=== PATIENT | male | born 1955 | race Caucasian/White ===

== ENCOUNTER → 2017-04-15 | Outpatient (CLI) | payer OTHER ==
[~2017-04-15] MED LIST: CELE100C PO; DOXY100C PO; IBUP-1022 PO; LEVA1TAB2 PO; MUCI600T37 PO; MULTCAP PO; NICO21DI5 TD; TYLE325T5 PO
--- NOTE | 2017-04-18 22:38 | SLEEPHOME ---
DATE OF PROCEDURE: 04/15/2017 ORDERED BY: Dr. Garcia in [facility] home sleep testing was performed due to concern for the obstructive sleep apnea syndrome. For testing, a NOX-T3 respiratory monitoring device was used. Continuous record was made of pulse, oxygen saturation, air flow, chest and abdominal strain and body position. 9 hours and 59 minutes of data were reviewed. Of these, 4 hours and 42 minutes were marked time in bed. During the interval marked time in bed, there were 352 respiratory events identified of 10 seconds in duration or greater for a respiratory event index of 74.7. The events were primarily obstructive. Baseline heart rate 81 beats per minute. Pulse rate ranged 66 to 115. Baseline saturation 90%. Lowest oxygen saturation 80%. Testing was performed in both the supine and nonsupine positions. IMPRESSION: Abnormal home sleep testing with repetitive respiratory events and oxygen desaturation to 80% with a respiratory event index of 74.7 is consistent with severe obstructive sleep apnea syndrome. RECOMMENDATION: Given the significant oxygen desaturations and the frequency of respiratory events, referral for a formal sleep evaluation and in laboratory pressure titration are recommended.
== END ==
LOC: M SLEEP HO 07:47
PROVIDERS: ATTEND Internal Medicine Cardiovascular Disease
DX: G47.30 Sleep apnea, unspecified (principal)

== ENCOUNTER → 2017-05-31 | Outpatient (CLI) | payer BC ==
--- NOTE | 2017-05-31 10:08 | REP ---
REASON: Pain, no trauma, whatsoever. There is a comparison dated 03/04/2014. Once again, there are degenerative changes seen throughout the hand, particularly the proximal interphalangeal joint of the 5th digit with joint space narrowing and slight marginal osteophytosis slightly increased from the prior exam. There are no other significant changed from the prior exam. There is no evidence of an acute fracture. IMPRESSION: Chronic changes as described above. Signed by Brown Martinez DO 05/31/2017 10:22 A
== END ==
LOC: M WUC 08:52
PROVIDERS: ATTEND Nurse Practitioner Family
DX: M25.542 Pain in joints of left hand (principal)

== ENCOUNTER → 2017-08-26 | Outpatient (CLI) | payer BC | LOC: M SLEEP 19:02 | DX: G47.33 Obstructive sleep apnea (adult) (pediatric) (principal); G47.61 Periodic limb movement disorder | CPT/HCPCS: 95811 ==

== ENCOUNTER → 2017-08-28 | Outpatient (REF) | payer BC | LOC: M LAB REF 17:22 | DX: D17.22 Benign lipomatous neoplasm of skin and subcutaneous tissue of left arm (principal) | CPT/HCPCS: 88304 ==

== ENCOUNTER → 2017-09-04 | Outpatient (REF) | payer BC | LOC: M LAB REF 12:39 | DX: D17.21 Benign lipomatous neoplasm of skin and subcutaneous tissue of right arm (principal) | CPT/HCPCS: 88304 ==

== ENCOUNTER → 2018-01-08 | Outpatient (CLI) | payer BC ==
[2018-01-08 09:03] LABS: HEMATOCRIT 40.8 % (42.0-52.0); HEMOGLOBIN 13.8 g/dl (13.5-17.5); MEAN CORPUSCULAR HEMOGLOBIN 32.9 pg (27.0-33.0); MEAN CORPUSCULAR HGB CONC 33.8 g/dl (32.0-36.5); MEAN CORPUSCULAR VOLUME 97.1 fl (80.0-96.0); PLATELET COUNT, AUTOMATED 180 10^3/uL (150-450); RED CELL DISTRIBUTION WIDTH 12.1 % (11.5-14.5); WHITE BLOOD COUNT 5.5 10^3/uL (4.0-10.0)
[2018-01-08 09:25] LABS: ALBUMIN/GLOBULIN RATIO 1.25 (1.00-1.93); ALKALINE PHOSPHATASE 67 U/L (45-117); ALT/SGPT 103 U/L (12-78); ANION GAP 6 MEQ/L (8-16); AST/SGOT 63 U/L (7-37); BILIRUBIN,TOTAL 0.9 MG/DL (0.2-1.0); BLOOD UREA NITROGEN 19 MG/DL (7-18); CALCIUM LEVEL 8.7 MG/DL (8.8-10.2); CARBON DIOXIDE LEVEL 27 MEQ/L (21-32); CHLORIDE LEVEL 106 MEQ/L (98-107); CHOLESTEROL LEVEL 294 MG/DL (<200); CHOLESTEROL RISK RATIO 3.195 (<5); CPK CREATINE PHOSPHOKINASE 221 U/L (39-308); CREATININE FOR GFR 0.94 MG/DL (0.70-1.30); GLOMERULAR FILTRATION RATE > 60.0 (>49); GLUCOSE, FASTING 103 MG/DL (70-100); HDL CHOLESTEROL 92 MG/DL (>40); NON-HDL-C 202 MG/DL; POTASSIUM SERUM 4.7 MEQ/L (3.5-5.1); SODIUM LEVEL 139 MEQ/L (136-145); TOTAL PROTEIN 7.2 GM/DL (6.4-8.2); TRIGLYCERIDES LEVEL 95 MG/DL (<150)
== END ==
LOC: M WUC 08:11
DX: E78.00 Pure hypercholesterolemia, unspecified (principal); I10 Essential (primary) hypertension
CPT/HCPCS: 82550

== ENCOUNTER → 2018-03-03 | Outpatient (CLI) | payer BC | LOC: M SMT PRO 11:17 | DX: C61 Malignant neoplasm of prostate (principal) | CPT/HCPCS: G0416 ==

== ENCOUNTER → 2018-06-09 | Outpatient (CLI) | payer BC | LOC: M RAD 14:56 | DX: M54.5 Low back pain (principal); R93.7 Abnormal findings on diagnostic imaging of other parts of musculoskeletal system | CPT/HCPCS: 72148 ==

== ENCOUNTER 2018-12-22 08:06 | Inpatient (IN) | payer BC ==
[~2018-12-22] VITALS: Ht 177.8 cm; Wt 87.5 kg
[~2018-12-22 08:06] MED LIST changes: -NICO21DI5 TD; +NICO21DI6 TD
[2018-12-22] MEDS ORDERED: PANTOPRAZOLE 40MG INJ (PROTONIX) (C9113) IV ONE (08:30)
[2018-12-22] MEDS ORDERED: OCTREOTIDE ACETATE 100 MCG/ML VIAL (J2354) IV ONE (08:30)
[2018-12-22] MEDS ORDERED: NS 1,000 ML IV ONE (08:30)
[2018-12-22 08:52] LABS: BASO # 0.1 10^3/uL (0.0-0.2); BASO % 0.5 % (0.0-1.0); EOS # 0.1 10^3/uL (0.0-0.50); EOS % 0.6 % (0.0-3.0); HEMATOCRIT 29.5 % (42.0-52.0); HEMOGLOBIN 9.4 g/dl (13.5-17.5); LYMPH # 0.9 10^3/uL (1.5-4.5); LYMPH % 9.6 % (24.0-44.0); MEAN CORPUSCULAR HGB CONC 31.9 g/dl (32.0-36.5); MEAN CORPUSCULAR VOLUME 100.3 fl (80.0-96.0); MONO # 1.1 10^3/uL (0.0-0.8); NEUTROPHILS # 7.3 10^3/uL (1.8-7.7); NEUTROPHILS % 76.2 % (36.0-66.0); PLATELET COUNT, AUTOMATED 286 10^3/uL (150-450); RED BLOOD COUNT 2.94 10^6/uL (4.30-6.10); WHITE BLOOD COUNT 9.6 10^3/uL (4.0-10.0)
[2018-12-22 09:05] LABS: INR 1.01; PROTHROMBIN TIME 13.4 SECONDS (12.1-14.4)
[2018-12-22 09:06] LABS: PARTIAL THROMBOPLASTIN TIME 25.4 SECONDS (25.4-37.6)
--- NOTE | 2018-12-22 09:31 | REP ---
CHEST, SINGLE VIEW: COMPARISON: 01/08/2018. There is no evidence of acute infiltrate. No pleural effusion is seen. The heart is normal in size. The mediastinal silhouette is unremarkable. The visualized osseous structures are intact. IMPRESSION: No acute pulmonary disease. Electronically Signed by Ben Henson MD 12/23/2018 11:36 A
[2018-12-22 09:37] LABS: ALBUMIN 2.9 GM/DL (3.2-5.2); ALT/SGPT 38 U/L (12-78); BILIRUBIN,DIRECT < 0.1 MG/DL (0.0-0.2); BILIRUBIN,TOTAL 0.5 MG/DL (0.2-1.0); TOTAL PROTEIN 5.9 GM/DL (6.4-8.2)
[2018-12-22 09:39] LABS: BLOOD UREA NITROGEN 57 MG/DL (7-18); GLOMERULAR FILTRATION RATE 59.2 (>49); GLUCOSE, FASTING 114 MG/DL (70-100)
[2018-12-22 09:40] LABS: CARBON DIOXIDE LEVEL 24 MEQ/L (21-32); CHLORIDE LEVEL 106 MEQ/L (98-107); POTASSIUM SERUM 5.7 MEQ/L (3.5-5.1); SODIUM LEVEL 138 MEQ/L (136-145)
[2018-12-22 09:41] LABS: CALCIUM LEVEL 8.5 MG/DL (8.8-10.2); CK-MB VALUE MASS 2.9 NG/ML (<3.6); CPK CREATINE PHOSPHOKINASE 87 U/L (39-308); FREE T4 0.98 NG/DL (0.76-1.46); MAGNESIUM LEVEL 1.7 MG/DL (1.8-2.4); MB/CK RELATIVE INDEX 3.33 (< OR =4); TROPONIN I < 0.02 NG/ML (< 0.10)
[2018-12-22 09:46] LABS: LIPASE 279 U/L (73-393)
[2018-12-22] MEDS ORDERED: ISOVUE-370 76% 100ML VIAL (Q9967) As Ordered ONE (10:06)
[2018-12-22] MEDS: PANTOPRAZOLE SODIUM 40 MG in D5W 50 ML IV SCH ×3 (10:15→21:50)
[2018-12-22] MEDS ORDERED: IRBE150T12 PO (11:14)
[2018-12-22] MEDS ORDERED: DOXY100C PO (11:14)
[2018-12-22] MEDS ORDERED: TIZA2TAB4 PO ×2 (11:14)
[2018-12-22] MEDS ORDERED: FLUO20CA19 PO (11:15)
[2018-12-22] MEDS ORDERED: CRES10TA PO (11:15)
[2018-12-22] MEDS ORDERED: GABA-843 PO ×2 (11:15)
[2018-12-22] MEDS ORDERED: FLOM0.4C39 PO (11:15)
[2018-12-22] MEDS ORDERED: CLIN1.2G TOP (11:15)
[2018-12-22] MEDS ORDERED: ASPI81TA85 PO (11:17)
[2018-12-22] MEDS ORDERED: IBUP200T45 PO (11:17)
[2018-12-22] MEDS: OCTREOTIDE ACETATE 1,200 MCG in NS 238.8 ML IV SCH (11:31)
--- NOTE | 2018-12-22 11:35 | REP ---
CT ABDOMEN AND PELVIS WITH IV CONTRAST: TECHNIQUE: Axial contrast enhanced images from the lung bases to the pubic symphysis using 100 mL Isovue 370 intravenous contrast material with multiplanar reformations. Visualized lung bases demonstrate no evidence of acute infiltrate. The liver demonstrates a few scattered cysts. The spleen is unremarkable. There is again a lobulated cyst along the inferior margin of the left adrenal gland, which actually has decreased in size slightly since the prior study of 08/24/2014. The pancreas demonstrates no mass. There is a cyst of the left kidney posteriorly. There is no hydronephrosis bilaterally. There is atherosclerotic calcification of the abdominal aorta without aneurysm. There is no adenopathy. There is no free air or free fluid. There is no bowel wall thickening or inflammation. There is sigmoid diverticulosis without evidence of acute diverticulitis. There is no evidence of appendicitis. There is no pelvic mass. Prostate is enlarged. Urinary bladder is grossly unremarkable. IMPRESSION: No acute disease in the abdomen or pelvis. No free air or free fluid. Scattered cysts in the liver, along the inferior aspect of the adrenal gland and in the left kidney. There is sigmoid diverticulosis without acute diverticulitis. No evidence of acute appendicitis. Enlarged prostate. Electronically Signed by Ben Henson MD 12/23/2018 04:34 P
[2018-12-22] MEDS ORDERED: ONDANSETRON 4MG/2ML VIAL (J2405) IV SCH (11:45)
[2018-12-22] MEDS ORDERED: LORazepam 2 MG/ML VIAL (J2060) IV PRN (12:30)
[2018-12-22] MEDS ORDERED: ONDANSETRON 4MG/2ML VIAL (J2405) IV PRN (12:30)
[2018-12-22 14:00] VITALS: BP 133/88
[2018-12-22 14:11] VITALS: BP 133/88
[2018-12-22] MEDS: NS 1,000 ML IV SCH ×2 (14:37→21:50)
[2018-12-22 15:00] LABS: HEMATOCRIT 30.4 % (42.0-52.0); HEMOGLOBIN 10.1 g/dl (13.5-17.5)
[2018-12-22 16:00] VITALS: BP 132/79
--- NOTE | 2018-12-22 16:37 | HPEPDOC ---
General Date of Admission Dec 22, 2018 at 11:41 Chief Complaint The patient is a 63-year-old male admitted with a reason for visit of Upper Gi Bleeding. History of Present Illness 63-year-old male with past medical history of brain aneurysm status post coiling and stenting x 2 in 2017 @ [facility], Prostate Cancer s/p Gamma Knife therapy in 2018, hypertension, dyslipidemia, anxiety/depression, chronic neck/back pain, osteoarthritis, and neuropathy presented to the ER with a chief complaint of lightheadedness and dizziness. The patient states that he got to work this morning and felt lightheaded/dizzy and diaphoretic. He reports that he feels like he has been appearing pale. He denied any complaints of fevers, c hills, cough, chest pain, shortness of breath, palpitations, or any vomiting/diarrhea. However, the patient does note that he has been having some nonspecific supraumbilical/epigastric pain and abdominal distention with no alleviating or aggravating factors over the last several days. Also of note, the patient states that he has been having dark colored stools since last summer after he received radiation for prostate cancer. Otherwise, he denies any changes in his bowel movements. He denies any weight loss. The patient does endorse drinking 3 L of whiskey per week for the last 4 years. He denies any history of known liver disease. When the patient arrived in the ER, he had approximately 500 mL of hematemesis. Lab work revealed a drop of 4 g of his hemoglobin from 1 month ago. The patient denied any other episodes of hematemesis or overt blood loss. GI was consulted in the ER for upper GI bleeding. The hospitalist team has been contacted for admission of acute blood loss anemia. Home Medications Scheduled Aspirin (Aspir 81) 81 Mg Tablet.dr, 81 MG PO DAILY, (Reported) Clindamycin Phos/Benzoyl Perox (Clind pH-Benzoyl Perox 1.2-5%) 45 Gm Gel..gram., 1 DOSE TOP DAILY, (Reported) Doxycycline Hyclate (Doxycycline Hyclate) 100 Mg Capsule, 100 MG PO BID, (Reported) Fluoxetine Hcl (Fluoxetine HCl) 20 Mg Capsule, 20 MG PO DAILY, (Reported) Gabapentin (Gabapentin) 300 Mg Capsule, 300 MG PO BID, (Reported) AM,LATE AFTERNOON Gabapentin (Gabapentin) 300 Mg Capsule, 600 MG PO QHS, (Reported) Irbesartan (Irbesartan) 150 Mg Tablet, 150 MG PO BID, (Reported) Rosuvastatin Calcium (Crestor) 10 Mg Tablet, 10 MG PO QHS, (Reported) Tamsulosin HCl (Flomax) 0.4 Mg Capsule, 0.4 MG PO DAILY, (Reported) Tizanidine HCl (Tizanidine HCl) 2 Mg Tablet, 1 MG PO BID, (Reported) AM,LATE AFTERNOON Tizanidine HCl (Tizanidine HCl) 2 Mg Tablet, 2 MG PO QHS, (Reported) Scheduled PRN Ibuprofen (Ibu-200) 200 Mg Tablet, 400 MG PO Q8H PRN for PAIN, (Reported) Allergies Coded Allergies: No Known Allergies (Unverified , 08/24/14) Past Medical History Medical History As noted in HPI. Social History * Smoker: former Smoker (smoked 2 packs per day for 40+ years, quit in 2014) Alcohol: heavy (states that he drinks 3 L of whiskey per week for the past 4 years) Drugs: emiliana Works for the [employer] at the [employer]. He is functionally independent at baseline. A-FIB/CHADSVASC A-FIB History Current/History of A-Fib/PAF?: No Review of Systems Other systems 10 point review of systems negative unless otherwise specified in HPI. Physical Examination General Exam: Positive: Alert, Cooperative, No Acute Distress ENT Exam: Positive: Atraumatic, Mucous membr. moist/pink Neck Exam: Negative: JVD Chest Exam: Positive: Clear to auscultation, Normal air movement Heart Exam: Positive: Rate Normal, Normal S1, Normal S2 Abdomen Exam: Positive: Soft; Negative: Tenderness Extremity Exam: Negative: Tenderness, Swelling Psych Exam: Positive: Oriented x 3 Vital Signs Vital Signs Date Time Temp Pulse Resp B/P (MAP) Pulse Ox O2 Delivery O2 Flow Rate FiO2 12/22/18 16:00 98.3 67 18 132/79 (96) 95 12/22/18 08:09 Room Air Laboratory Data Labs 24H Laboratory Tests 2 12/22/18 08:28: Immature Granulocyte % (Auto) 2.1, White Blood Count 9.6, Red Blood Count 2.94L, Hemoglobin 9.4L, Hematocrit 29.5L, Mean Corpuscular Volume 100.3H, Mean Corpu scular Hemoglobin 32.0, Mean Corpuscular Hemoglobin Concent 31.9L, Red Cell Distribution Width 12.4, Platelet Count 286, Neutrophils (%) (Auto) 76.2H, Lymphocytes (%) (Auto) 9.6L, Monocytes (%) (Auto) 11.0H, Eosinophils (%) (Auto) 0.6, Basophils (%) (Auto) 0.5, Neutrophils # (Auto) 7.3, Lymphocytes # (Auto) 0.9L, Monocytes # (Auto) 1.1H, Eosinophils # (Auto) 0.1, Basophils # (Auto) 0.1, Nucleated Red Blood Cells % (auto) 0.5H, Prothrombin Time 13.4, Prothromb Time International Ratio 1.01, Activated Partial Thromboplast Time 25.4, Anion Gap 8, Glomerular Filtration Rate 59.2, Blood Urea Nitrogen 57H, Creatinine 1.30, Sodium Level 138, Potassium Level 5.7H, Chloride Level 106, Carbon Dioxide Level 24, Calcium Level 8.5L, Total Creatine Kinase 87, Magnesium Level 1.7L, Aspartate Amino Transf (AST/SGOT) 32, Alanine Aminotransferase (ALT/SGPT) 38, Alkaline Phosphatase 55, Total Bilirubin 0.5, Direct Bilirubin < 0.1, Creatine Kinase MB 2.9, Creatine Kinase MB Relative Index 3.33, Troponin I < 0.02, Total Protein 5.9L, Albumin 2.9L, Albumin/Globulin Ratio 0.97L, Lipase 279, Thyroid Stimulating Hormone (TSH) 1.110, Free Thyroxine 0.98 CBC/BMP Laboratory Tests 12/22/18 08:28 Red Blood Count 2.94 L, Mean Corpuscular Volume 100.3 H, Mean Corpuscular Hemoglobin 32.0, Mean Corpuscular Hemoglobin Concent 31.9 L, Red Cell Distribution Width 12.4, Neutrophils (%) (Auto) 76.2 H, Lymphocytes (%) (Auto) 9.6 L, Monocytes (%) (Auto) 11.0 H, Eosinophils (%) (Auto) 0.6, Basophils (%) (Auto) 0.5, Neutrophils # (Auto) 7.3, Lymphocytes # (Auto) 0.9 L, Monocytes # (Auto) 1.1 H, Eosinophils # (Auto) 0.1, Basophils # (Auto) 0.1, Calcium Level 8.5 L, Total Creatine Kinase 87 12/22/18 14:54 Plan / VTE VTE Prophylaxis Ordered?: Yes Plan Plan Acute Blood Loss Anemia 2/2 UGIB Possible etiology includes potential underlying esophageal varices from alcohol abuse, gastric/peptic ulcer disease from chronic NSAID use for osteoarthritis (Celebrex, Ibuprofen). The patient was initially hypotensive in the ER but has been provided IV fluid hydration with an appropriate response to his blood pressure. We will transfuse the patient 1 unit of packed blood cell given the acute drop of 4 g We will serially monitor H&H's Protonix and octreotide drip ordered We will keep the patient nothing by mouth GI on consult We will monitor the patient closely under PCU status Hx of Alcohol Abuse Counseled at length about cessation CIWA Protocol ordered Ativan prn Hypertension, stable We will resume meds once the patient is hemodynamically stable, and able to take diet History of dyslipidemia Meds on hold Anxiety/depression Meds on hold History of chronic pain, osteoarthritis By mouth meds on hold Brain aneurysm status post coiling and stenting x 2 in 2017 @ [facility] F/U as outpatient Prostate Cancer s/p Gamma Knife therapy in 2018 F/U as outpatient DVT Prophylaxis KATHLEENs/DARYL Noble MD Dec 22, 2018 16:37
[2018-12-22 20:00] VITALS: BP 132/83
[2018-12-22 21:20] LABS: HEMATOCRIT 29.6 % (42.0-52.0); HEMOGLOBIN 9.7 g/dl (13.5-17.5)
[2018-12-23] VITALS (7 sets, daily range): BP systolic 110–147; BP diastolic 48–86
[2018-12-23 02:50] LABS: HEMATOCRIT 26.9 % (42.0-52.0); HEMOGLOBIN 8.8 g/dl (13.5-17.5); MEAN CORPUSCULAR HEMOGLOBIN 31.9 pg (27.0-33.0); MEAN CORPUSCULAR HGB CONC 32.7 g/dl (32.0-36.5); MEAN CORPUSCULAR VOLUME 97.5 fl (80.0-96.0); PLATELET COUNT, AUTOMATED 226 10^3/uL (150-450); RED BLOOD COUNT 2.76 10^6/uL (4.30-6.10); WHITE BLOOD COUNT 4.8 10^3/uL (4.0-10.0)
[2018-12-23 03:15] LABS: BLOOD UREA NITROGEN 41 MG/DL (7-18); CALCIUM LEVEL 7.6 MG/DL (8.8-10.2); CARBON DIOXIDE LEVEL 27 MEQ/L (21-32); CHLORIDE LEVEL 111 MEQ/L (98-107); CREATININE FOR GFR 1.19 MG/DL (0.70-1.30); GLOMERULAR FILTRATION RATE > 60.0 (>49); GLUCOSE, FASTING 139 MG/DL (70-100); MAGNESIUM LEVEL 1.7 MG/DL (1.8-2.4); POTASSIUM SERUM 4.5 MEQ/L (3.5-5.1); SODIUM LEVEL 142 MEQ/L (136-145)
[2018-12-23] MEDS: PANTOPRAZOLE SODIUM 40 MG in D5W 50 ML IV SCH ×3 (03:18→12:34)
--- NOTE | 2018-12-23 05:44 | ECGEPIP ---
Stationary ECG Study [facility] - ED Test Date: 2018-12-22 Pat Name: MICHAEL IRVING Department: Room: - Gender: M Rn Relief Charge: : 1955 Requested By: RUTH Vizcarra Order Number: [id number] Reading MD: Mark Hancock Measurements Intervals [place] Rate: 106 P: 46 NH: 120 QRS: 70 QRSD: 85 T: 55 QT: 304 QTc: 404 Interpretive Statements SINUS TACHYCARDIA WITH OCCASIONAL VENTRICULAR PREMATURE COMPLEXES POSSIBLE LEFT ATRIAL ENLARGEMENT INCOMPLETE RIGHT BUNDLE BRANCH BLOCK SIMILAR TO 08/24/14 Electronically Signed On 12-23-2018 5:44:35 EDT by Mark Hancock
[2018-12-23] MEDS: NS 1,000 ML IV SCH (07:46)
[2018-12-23] MEDS: MAG SULF 1GM/100ML (MAG RUN) 1 GM in APPROPRIATE DILUENT 1 EA IV SCH ×2 (07:57→09:03)
[2018-12-23] MEDS: OCTREOTIDE ACETATE 1,200 MCG in NS 238.8 ML IV SCH (09:03)
[2018-12-23 09:04] LABS: HEMATOCRIT 28.7 % (42.0-52.0); HEMOGLOBIN 9.6 g/dl (13.5-17.5)
--- NOTE | 2018-12-23 13:32 | IPNPDOC ---
Subjective Date Seen The patient was seen on 12/23/18. Subjective Chief Complaint/HPI Patient is having dark/black colored stools overnight. However, states that this has been his baseline since last summer. Denies any more episodes of hematemesis Objective Physical Examination General Exam: Positive: Alert, Cooperative, No Acute Distress ENT Exam: Positive: Atraumatic, Mucous membr. moist/pink Neck Exam: Negative: JVD Chest Exam: Positive: Clear to auscultation, Normal air movement Heart Exam: Positive: Rate Normal, Normal S1, Normal S2 Abdomen Exam: Positive: Soft; Negative: Tenderness Extremity Exam: Negative: Tenderness, Swelling Psych Exam: Positive: Oriented x 3 A-FIB/CHADSVASC A-FIB History Current/History of A-Fib/PAF?: No Assessment /Plan Plan/VTE VTE Prophylaxis Ordered?: Yes Plan Acute Blood Loss Anemia 2/2 UGIB Possible etiology includes potential underlying esophageal varices from alcohol abuse, gastric/peptic ulcer disease from chronic NSAID use for osteoarthritis (Celebrex, Ibuprofen). The patient was initially hypotensive in the ER but has been provided IV fluid hydration with an appropriate response to his blood pressure. s/p 2 units of PRBC transfusion We will serially monitor H&H's Protonix and octreotide drip ordered We will keep the patient nothing by mouth GI on consult--patient scheduled for EGD today We will monitor the patient closely under PCU status Hx of Alcohol Abuse Counseled at length about cessation CIWA Protocol ordered Ativan prn Hypertension, stable We will resume meds once the patient is hemodynamically stable, and able to take diet History of dyslipidemia Meds on hold Anxiety/depression Meds on hold History of chronic pain, osteoarthritis By mouth meds on hold Brain aneurysm status post coiling and stenting x 2 in 2017 @ [facility] F/U as outpatient Prostate Cancer s/p Gamma Knife therapy in 2018 F/U as outpatient DVT Prophylaxis SCDs/TEDs VS, I&O, 24H, Fishbone Vital Signs/I&O Vital Signs Date Time Temp Pulse Resp B/P (MAP) Pulse Ox O2 Delivery O2 Flow Rate FiO2 12/23/18 08:00 98.3 82 17 120/76 (91) 96 12/22/18 08:09 Room Air I&O- Last 24 Hours up to 6 AM 12/23/18 06:00 Intake Total 1840 ml Output Total 1975 ml Balance -135 ml Laboratory Data 24H LABS Laboratory Tests 2 12/23/18 02:44: Nucleated Red Blood Cells % (auto) 0.6H, Anion Gap 4L, Glomerular Filtration Rate > 60.0, Blood Urea Nitrogen 41H, Creatinine 1.19, Sodium Level 142, Potassium Level 4.5#, Chloride Level 111H, Carbon Dioxide Level 27, Calcium Level 7.6L, Magnesium Level 1.7L CBC/BMP Laboratory Tests 12/22/18 14:54 12/22/18 21:01 12/23/18 02:44 Red Blood Count 2.76 L, Mean Corpuscular Volume 97.5 H, Mean Corpuscular Hemoglobin 31.9, Mean Corpuscular Hemoglobin Concent 32.7, Red Cell Distribution Width 13.4, Calcium Level 7.6 L 12/23/18 08:49 DARYL STEINER MD December 23, 2018 13:32
[2018-12-23 15:08] LABS: HEMATOCRIT 29.3 % (42.0-52.0); HEMOGLOBIN 9.7 g/dl (13.5-17.5)
[2018-12-23] MEDS ORDERED: PROPOFOL 200 MG/20 ML VIAL As Ordered ONE (15:19)
[2018-12-23] MEDS ORDERED: LIDOCAINE 2% INJ 100 MG/5 ML SDV (FOR ANES.) As Ordered ONE (15:19)
[2018-12-23] MEDS ORDERED: MIDAZOLAM INJ 2 MG/2 ML VIAL (J2250) As Ordered ONE (16:41)
[2018-12-23] MEDS ORDERED: fentaNYL 100 MCG/2 ML INJECTION (J3010) As Ordered ONE (16:41)
--- NOTE | 2018-12-23 17:09 | ROOR ---
Patient Name: Shay Aviles Procedure Date: 12/23/2018 4:36 PM Date of : 1955 Age: 63 Room: [facility] Gender: Male Note Status: Finalized Procedure: Upper GI endoscopy Indications: Hematemesis, Melena Providers: Davie Howell MD Referring MD: George Garcia MD Requesting Provider: Medicines: Fentanyl 100 micrograms IV, Midazolam 4 mg IV Complications: No immediate complications. Procedure: Pre-Anesthesia Assessment: - The heart rate, respiratory rate, oxygen saturations, blood pressure, adequacy of pulmonary ventilation, and response to care were monitored throughout the procedure. The Endoscope was introduced through the mouth, and advanced to the second part of duodenum. The upper GI endoscopy was accomplished without difficulty. The patient tolerated the procedure well. Findings: The Z-line was regular and was found 40 cm from the incisors. A 3 mm non-bleeding Susan-Moya tear with stigmata of recent bleeding was found. Many non-bleeding cratered gastric ulcers with no stigmata of bleeding were found in the gastric antrum. One non-bleeding cratered duodenal ulcer with no stigmata of bleeding was found in the second portion of the duodenum. The exam was otherwise without abnormality. Impression: - Z-line regular, 40 cm from the incisors. - Susan-Moya tear. - Non-bleeding gastric ulcers with no stigmata of bleeding. - One non-bleeding duodenal ulcer with no stigmata of bleeding. - The examination was otherwise normal. - No specimens collected. - The examination was otherwise normal. Recommendation: - Patient has a contact number available for emergencies. The signs and symptoms of potential delayed complications were discussed with the patient. Return to normal activities tomorrow. Written discharge instructions were provided to the patient. - Return patient to hospital [facility] for ongoing care. - Use Protonix (pantoprazole) 40 mg PO BID. - Use sucralfate tablets 1 gram PO QID. - Repeat upper endoscopy in 8 weeks to check healing. - Return to my office in 8 weeks. - The findings and recommendations were discussed with the patient. Davie Howell MD Davie Howell MD 12/23/2018 5:09:32 PM Electronically signed by Davie Howell MD Number of Addenda: 0 Note Initiated On: 12/23/2018 4:36 PM Estimated Blood Loss: Estimated blood loss: none.
[2018-12-23] MEDS ORDERED: PILL CRUSHER/CUTTER 1 EACH XX PRN (18:00)
[2018-12-23] MEDS ORDERED: SLF 3 ML SYR IV PRN (18:15)
--- NOTE | 2018-12-23 20:06 | CR ---
DATE OF CONSULTATION: 12/22/2018 This is 63-year white male admitted to [facility] for a one week history of black tarry stools, lower abdominal cramps and pain. The patient apparently drinks two 1.5 liters of alcohol per week. He has not had any previous history of gastrointestinal (GI) bleeding. He did have a past medical history of a brain aneurysm status post coiling and stenting times two in 2017. He is also status post prostate cancer with gamma knife surgery in 2018. He has a known history of hypertension, dyslipidemia, anxiety, depression, chronic neck and back pain, osteoarthritis and neuropathy. The patient presented to the emergency room (ER). [place] [employer] [place] He presents to the ER with a chief complaint of lightheadedness and dizziness. The patient was diaphoretic and dizzy this morning. He denies any nonsteroidal or aspirin abuse. No complaints of chest pain or shortness of breath. While in the emergency room, the patient had a single bout of hematemesis, approximately 500 mL. He had a problem with his hemoglobin approximately one month ago. Patient denies any previous episodes of GI bleeding or endoscopy. The patient is being seen by GI for evaluation of the hematemesis. MEDICATIONS: Include: - aspirin 81 mg a day - doxycycline - fluoxetine - gabapentin - irbesartan - simvastatin - Tamsulosin - tizanidine ALLERGIES: No known declared allergies. PAST MEDICAL HISTORY: As recorded above. SOCIAL HISTORY: Patient smoked 2 packs a day for 40 years. He quit in 2012. Alcohol: Patient drinks approximately 3 liters of whiskey per week for the past four years. Denies drugs. REVIEW OF SYSTEMS: Noncontributory to this consultation. PHYSICAL EXAMINATION: GENERAL: Well-developed, well-nourished white male in no obvious acute distress. Appears stated age. CHEST: Clear to auscultation and percussion. CARDIOVASCULAR EXAM: Showed a regular rhythm. No murmurs or gallops. Normal physiological split. S1, S2. ABDOMEN: Soft, nontender. No masses, guarding, rebound or hepatosplenomegaly. Bowel sounds positive. EXTREMITIES: No cyanosis, clubbing or edema. Eliz's negative. LABORATORY STUDIES: On this admission shows a white count of 9600, hemoglobin and hematocrit (H and H) was 9.4 and 29.5, MCV was 100.3, platelets were 186,000. Further testing on record showed the last count was 9.7 and 29.6. The patient was given one unit packed cells in the emergency room. Coagulation studies are an INR of 1. On admission, he showed normal liver function. Albumin was 2.9 with normal electrolytes. Imaging studies included abdominal CT scan on 12/22/2018, which basically showed no acute disease. No free air. Patient had some scattered cysts in the liver and patient has some mild sigmoid diverticulosis, but no diverticulitis. ANALYSIS: Anemia, hematemesis and melena of unknown etiology. PLAN: Will be to set the patient up for an upper endoscopy for further evaluation and possible treatment.
[2018-12-23] MEDS: IRBESARTAN 150 MG TAB PO SCH (20:53)
[2018-12-23] MEDS: SUCRALFATE 1 GM TAB PO SCH (20:53)
[2018-12-23] MEDS: tiZANidine 4 MG TAB PO SCH (20:54)
[2018-12-23] MEDS: PANTOPRAZOLE 40MG TAB (PROTONIX) PO SCH (20:54)
[2018-12-23] MEDS ORDERED: GABAPENTIN 300 MG CAP PO SCH (21:00)
[2018-12-23] MEDS ORDERED: ROSUVASTATIN 10 MG TAB (CRESTOR) PO SCH (21:00)
[2018-12-23] MEDS: SLF 3 ML SYR IV SCH (22:00)
[2018-12-23 23:41] LABS: HEMATOCRIT 28.9 % (42.0-52.0); HEMOGLOBIN 9.4 g/dl (13.5-17.5)
[2018-12-24] VITALS: BP 110/69
[2018-12-24 04:00] VITALS: BP 124/66
[2018-12-24] MEDS: SLF 3 ML SYR IV SCH (06:00)
[2018-12-24 07:21] LABS: HEMATOCRIT 31.6 % (42.0-52.0); HEMOGLOBIN 10.5 g/dl (13.5-17.5); MEAN CORPUSCULAR HEMOGLOBIN 32.2 pg (27.0-33.0); MEAN CORPUSCULAR HGB CONC 33.2 g/dl (32.0-36.5); MEAN CORPUSCULAR VOLUME 96.9 fl (80.0-96.0); PLATELET COUNT, AUTOMATED 252 10^3/uL (150-450); RED BLOOD COUNT 3.26 10^6/uL (4.30-6.10)
[2018-12-24 07:43] LABS: BLOOD UREA NITROGEN 17 MG/DL (7-18); CALCIUM LEVEL 8.5 MG/DL (8.8-10.2); CARBON DIOXIDE LEVEL 26 MEQ/L (21-32); CHLORIDE LEVEL 109 MEQ/L (98-107); CREATININE FOR GFR 1.13 MG/DL (0.70-1.30); GLOMERULAR FILTRATION RATE > 60.0 (>49); GLUCOSE, FASTING 113 MG/DL (70-100); MAGNESIUM LEVEL 2.2 MG/DL (1.8-2.4); POTASSIUM SERUM 4.3 MEQ/L (3.5-5.1); SODIUM LEVEL 139 MEQ/L (136-145)
[2018-12-24 08:00] VITALS: BP 119/77
[2018-12-24] MEDS ORDERED: FLUoxetine 20 MG CAP PO SCH (09:00)
[2018-12-24] MEDS ORDERED: TAMSULOSIN 0.4 MG CAP PO SCH (09:00)
[2018-12-24] MEDS ORDERED: GABAPENTIN 300 MG CAP PO SCH (09:00)
[2018-12-24 09:16] VITALS: BP 119/77
[2018-12-24] MEDS: IRBESARTAN 150 MG TAB PO SCH (09:16)
[2018-12-24] MEDS: tiZANidine 4 MG TAB PO SCH (09:16)
[2018-12-24] MEDS: SUCRALFATE 1 GM TAB PO SCH (09:16)
[2018-12-24] MEDS: PANTOPRAZOLE 40MG TAB (PROTONIX) PO SCH (09:17)
[2018-12-24] MEDS ORDERED: PROT1TAB2 PO (10:21)
[2018-12-24] MEDS ORDERED: CARA1TAB6 PO (10:21)
[2018-12-24 12:25] VITALS: BP 119/77
--- NOTE | 2018-12-24 12:54 | DS.PDOC ---
Discharge Summary General Date of Admission Dec 22, 2018 at 11:41 Date of Discharge 12/24/18 Specialist/Consultants Involve Dr. Howell of GI Discharge Summary PROCEDURES PERFORMED DURING STAY: s/p EGD by Dr. Howell on 12/23/18 ADMITTING/DISCHARGE DIAGNOSES: Acute blood loss anemia secondary to upper GI bleed from Susan-Moya tear History of dyslipidemia History of alcohol abuse History of hypertension COMPLICATIONS/CHIEF COMPLAINT: Upper Gi Bleeding. HISTORY OF PRESENT ILLNESS: . 63-year-old male with past medical history of brain aneurysm status post coiling and stenting x 2 in 2017 @ [facility], Prostate Cancer s/p Gamma Knife therapy in 2018, hypertension, dyslipidemia, anxiety/depression, chronic neck/back pain, osteoarthritis, and neuropathy presented to the ER with a chief complaint of lightheadedness and dizziness. The patient states that he got to [facility] this morning and felt lightheaded/dizzy and diaphoretic. He reports that he feels like he has been appearing pale. He denied any complaints of fevers, chills, cough, chest pain, shortness of breath, palpitations, or any vomiting/diarrhea. However, the patient does note that he has been having some nonspecific supraumbilical/epigastric pain and abdominal distention with no alleviating or aggravating factors over the last several days. Also of note, the patient states that he has been having dark colored stools since last summer after he received radiation for prostate cancer. Otherwise, he denies any changes in his bowel movements. He denies any weight loss. The patient does endorse drinking 3 L of whiskey per week for the last 4 years. He denies any history of known liver disease. When the patient arrived in the ER, he had approximately 500 mL of hematemesis. Lab work revealed a drop of 4 g of his hemoglobin from 1 month ago. The patient denied any other episodes of hematemesis or overt blood loss. GI was consulted in the ER for upper GI bleeding. The hospitalist team has been contacted for admission of acute blood loss anemia. During hospitalization, the patient was taken for an EGD with gastroenterology on 12/23/2018. He was found to have a Susan-Moya tear and nonbleeding gastric ulcers with a nonbleeding duodenal ulcer also noted. It was recommended that the patient take Protonix 40 mg twice a day, and Carafate 1 g by mouth 4 times a day. He was also recommended to have repeat upper endoscopy in 8 weeks to check for healing. The patient did not have any further episodes of hematemesis. He received a total of 2 units of packed red blood cells during hospitalization and did not have any further drop in his hemoglobin level. At this time, the patient stated that he is feeling well and is eager to return home. He is tolerating a diet without any acute complaints. I have advised the patient to follow-up with his primary care physician within 7 days. He is also to follow-up with GI in 8 weeks for a repeat endoscopy. Lastly, the patient has been advised to return to the ER for any acute emergencies.. DISCHARGE MEDICATIONS: Please see below. ALLERGIES: Please see below. PHYSICAL EXAMINATION ON DISCHARGE: VITAL SIGNS: Please see below. GENERAL: Awake, alert, in no acute distress HEENT: Normocephalic, atraumatic NECK: No JVD CARDIOVASCULAR EXAMINATION: Normal rate, normal S1, S2 RESPIRATORY EXAMINATION: Clear to auscultation bilaterally ABDOMINAL EXAMINATION: Soft, nontender, nondistended EXTREMITIES: No erythema, no tenderness LABORATORY DATA: Please see below. IMAGING: Procedure: Upper GI endoscopy Indications: Hematemesis, Melena Providers: Davie Howell MD Referring MD: George Garcia MD Requesting Provider: Medicines: Fentanyl 100 micrograms IV, Midazolam 4 mg IV Complications: No immediate complications. Procedure: Pre-Anesthesia Assessment: - The heart rate, respiratory rate, oxygen saturations, blood pressure, adequacy of pulmonary ventilation, and response to care were monitored throughout the procedure. The Endoscope was introduced through the mouth, and advanced to the second part of duodenum. The upper GI endoscopy was accomplished without difficulty. The patient tolerated the procedure well. Findings: The Z-line was regular and was found 40 cm from the incisors. A 3 mm non-bleeding Susan-Moya tear with stigmata of recent bleeding was found. Many non-bleeding cratered gastric ulcers with no stigmata of bleeding were found in the gastric antrum. One non-bleeding cratered duodenal ulcer with no stigmata of bleeding was found in the second portion of the duodenum. The exam was otherwise without abnormality. Impression: - Z-line regular, 40 cm from the incisors. - Susan-Moya tear. - Non-bleeding gastric ulcers with no stigmata of bleeding. - One non-bleeding duodenal ulcer with no stigmata of bleeding. - The examination was otherwise normal. - No specimens collected. - The examination was otherwise normal. Recommendation: - Patient has a contact number available for emergencies. The signs and symptoms of potential delayed complications were discussed with the patient. Return to normal activities tomorrow. Written discharge instructions were provided to the patient. - Return patient to hospital [facility] for ongoing care. - Use Protonix (pantoprazole) 40 mg PO BID. - Use sucralfate tablets 1 gram PO QID. - Repeat upper endoscopy in 8 weeks to check healing. - Return to my office in 8 weeks. - The findings and recommendations were discussed with the patient. CHEST, SINGLE VIEW: COMPARISON: 01/08/2018. There is no evidence of acute infiltrate. No pleural effusion is seen. The heart is normal in size. The mediastinal silhouette is unremarkable. The visualized osseous structures are intact. IMPRESSION: No acute pulmonary disease. CT ABDOMEN AND PELVIS WITH IV CONTRAST: TECHNIQUE: Axial contrast enhanced images from the lung bases to the pubic symphysis using 100 mL Isovue 370 intravenous contrast material with multiplanar reformations. Visualized lung bases demonstrate no evidence of acute infiltrate. The liver demonstrates a few scattered cysts. The spleen is unremarkable. There is again a lobulated cyst along the inferior margin of the left adrenal gland, which actually has decreased in size slightly since the prior study of 08/24/2014. The pancreas demonstrates no mass. There is a cyst of the left kidney posteriorly. There is no hydronephrosis bilaterally. There is atherosclerotic calcification of the abdominal aorta without aneurysm. There is no adenopathy. There is no free air or free fluid. There is no bowel wall thickening or inflammation. There is sigmoid diverticulosis without evidence of acute diverticulitis. There is no evidence of appendicitis. There is no pelvic mass. Prostate is enlarged. Urinary bladder is grossly unremarkable. IMPRESSION: No acute disease in the abdomen or pelvis. No free air or free fluid. Scattered cysts in the liver, along the inferior aspect of the adrenal gland and in the left kidney. There is sigmoid diverticulosis without acute diverticulitis. No evidence of acute appendicitis. Enlarged prostate. PROGNOSIS: Fair ACTIVITY: As tolerated. DIET: 2 g low sodium diet DISCHARGE PLAN: DISPOSITION: 01 Home, Self-Care. DISCHARGE INSTRUCTIONS: I have advised the patient to follow-up with his primary care physician within 7 days. He is also to follow-up with GI in 8 weeks for a repeat endoscopy. Lastly, the patient has been advised to return to the ER for any acute emergencies. DISCHARGE CONDITION: Stable. TIME SPENT ON DISCHARGE: Greater than 30 minutes. Vital Signs/I&Os Vital Signs Date Time Temp Pulse Resp B/P (MAP) Pulse Ox O2 Delivery O2 Flow Rate FiO2 12/24/18 12:25 64 119/77 12/24/18 08:00 99.6 16 96 12/22/18 08:09 Room Air I&O- Last 24 Hours up to 6 AM 12/24/18 06:00 Intake Total 2610 ml Output Total 1850 ml Balance 760 ml Laboratory Data Labs 24H Laboratory Tests 2 12/24/18 06:54: Nucleated Red Blood Cells % (auto) 0.0, Anion Gap 4L, Glomerular Filtration Rate > 60.0, Blood Urea Nitrogen 17#, Creatinine 1.13, Sodium Level 139, Potassium Level 4.3, Chloride Level 109H, Carbon Dioxide Level 26, Calcium Level 8.5L, Magnesium Level 2.2 CBC/BMP Laboratory Tests 12/23/18 14:48 12/23/18 23:36 12/24/18 06:54 Red Blood Count 3.26 L, Mean Corpuscular Volume 96.9 H, Mean Corpuscular Hemoglobin 32.2, Mean Corpuscular Hemoglobin Concent 33.2, Red Cell Distribution Width 13.9, Calcium Level 8.5 L Discharge Medications Scheduled Aspirin (Aspir 81) 81 Mg Tablet.dr, 81 MG PO DAILY, (Reported) Clindamycin Phos/Benzoyl Perox (Clind pH-Benzoyl Perox 1.2-5%) 45 Gm Gel..gram., 1 DOSE TOP DAILY, (Reported) Doxycycline Hyclate (Doxycycline Hyclate) 100 Mg Capsule, 100 MG PO BID, (Reported) Fluoxetine Hcl (Fluoxetine HCl) 20 Mg Capsule, 20 MG PO DAILY, (Reported) Gabapentin (Gabapentin) 300 Mg Capsule, 300 MG PO BID, (Reported) AM,LATE AFTERNOON Gabapentin (Gabapentin) 300 Mg Capsule, 600 MG PO QHS, (Reported) Irbesartan (Irbesartan) 150 Mg Tablet, 150 MG PO BID, (Reported) Pantoprazole Sodium (Protonix) 40 Mg Tablet.dr, 1 TAB PO BID Rosuvastatin Calcium (Crestor) 10 Mg Tablet, 10 MG PO QHS, (Reported) Sucralfate (Carafate) 1 Gm Tablet, 1 TAB PO QID Tamsulosin HCl (Flomax) 0.4 Mg Capsule, 0.4 MG PO DAILY, (Reported) Tizanidine HCl (Tizanidine HCl) 2 Mg Tablet, 1 MG PO BID, (Reported) AM,LATE AFTERNOON Tizanidine HCl (Tizanidine HCl) 2 Mg Tablet, 2 MG PO QHS, (Reported) Scheduled PRN Ibuprofen (Ibu-200) 200 Mg Tablet, 400 MG PO Q8H PRN for PAIN, (Reported) Allergies Coded Allergies: No Known Allergies (Unverified , 08/24/14) DARYL STEINER MD December 24, 2018 12:54
== END 2018-12-24 12:22 | disposition home or self-care (01) | DRG 242 ==
LOC: EDBD 08:06 → EDSEX 08:06 → M ED 08:06 → M ED INP 11:41 → M PCU 14:11
PROVIDERS: ADMIT Internal Medicine; ATTEND Internal Medicine
PROC: 30233N1 Transfusion of Nonautologous Red Blood Cells into Peripheral Vein, Percutaneous Approach (ICD-10-PCS; 2018-12-22)
PROC: 0DJ08ZZ Inspection of Upper Intestinal Tract, Via Natural or Artificial Opening Endoscopic (ICD-10-PCS; principal; 2018-12-23 13:11)
DX: K22.6 Gastro-esophageal laceration-hemorrhage syndrome (principal); D62 Acute posthemorrhagic anemia; K25.9 Gastric ulcer, unspecified as acute or chronic, without hemorrhage or perforation; G62.9 Polyneuropathy, unspecified; E78.5 Hyperlipidemia, unspecified; I10 Essential (primary) hypertension; Z85.46 Personal history of malignant neoplasm of prostate; F41.9 Anxiety disorder, unspecified; F32.9 Major depressive disorder, single episode, unspecified; M54.5 Low back pain; M54.2 Cervicalgia; M19.90 Unspecified osteoarthritis, unspecified site; F10.10 Alcohol abuse, uncomplicated; Z79.82 Long term (current) use of aspirin; Z79.899 Other long term (current) drug therapy; K26.9 Duodenal ulcer, unspecified as acute or chronic, without hemorrhage or perforation

== ENCOUNTER 2019-03-03 06:56 | Day surgery (SDC) | payer BC ==
[~2019-03-03] VITALS: Ht 177.8 cm; Wt 85.9 kg
[~2019-03-03 06:56] MED LIST changes: +ASPI81TA85 PO; +CARA1TAB6 PO; +CINN500C15 PO; +CLIN1.2G TOP; +CRES10TA PO; +D3 S20002 PO; +FLOM0.4C39 PO; +FLUO20CA19 PO; +GABA-843 PO; +IBUP200T45 PO; +IRBE150T12 PO; +LORA-581 PO; +META1TAB22 PO; +NS 1,000 ML IV ONE; +OLME40TA PO; +PROT1TAB2 PO; +TIZA2TAB4 PO; +VALS1TAB67 PO; +VALT1TAB PO
[2019-03-03] MEDS ORDERED: LIDOCAINE 2% INJ 100 MG/5 ML SDV (FOR ANES.) As Ordered ONE (08:02)
[2019-03-03] MEDS ORDERED: PROPOFOL 200 MG/20 ML VIAL As Ordered ONE ×2 (08:02→08:42)
--- NOTE | 2019-03-03 08:19 | ROOR ---
Patient Name: Shay Aviles Procedure Date: 03/03/2019 8:01 AM Date of : 1955 Age: 63 Room: [facility] Gender: Male Note Status: Finalized Procedure: Upper Endoscopy + Biopsies Indications: Exclusion of gastric ulcer, Follow-up of gastric ulcer Providers: Davie Howell MD Referring MD: WILLIAM ORELLANA NP Requesting Provider: Medicines: Monitored Anesthesia Care Complications: No immediate complications. Procedure: Pre-Anesthesia Assessment: - The heart rate, respiratory rate, oxygen saturations, blood pressure, adequacy of pulmonary ventilation, and response to care were monitored throughout the procedure. The Endoscope was introduced through the mouth, and advanced to the second part of duodenum. The upper GI endoscopy was accomplished without difficulty. The patient tolerated the procedure well. Findings: The Z-line was regular and was found 39 cm from the incisors. Multiple biopsies were obtained with cold forceps for evaluation to rule out Tamez's Esophagus randomly at the gastroesophageal junction. A small hiatal hernia was present. Localized mild inflammation characterized by congestion (edema) and erythema was found in the gastric antrum. Biopsies were taken with a cold forceps for histology. Biopsies were taken with a cold forceps for Helicobacter pylori testing. The exam of the duodenum was otherwise normal. Impression: - Z-line regular, 39 cm from the incisors. - Small hiatal hernia. - Mucosal changes suspicious for gastritis. Biopsied. - Multiple biopsies were obtained at the gastroesophageal junction. - The examination was otherwise normal. Recommendation: - Patient has a contact number available for emergencies. The signs and symptoms of potential delayed complications were discussed with the patient. Return to normal activities tomorrow. Written discharge instructions were provided to the patient. - Discharge patient to home. - Follow an antireflux regimen. - Continue present medications. - Await pathology results. - Telephone GI clinic for pathology results in 1 week. - Return to referring physician. - The findings and recommendations were discussed with the patient's family. Davie Howell MD Davie Howell MD 03/03/2019 8:19:14 AM Electronically signed by Davie Howell MD Number of Addenda: 0 Note Initiated On: 03/03/2019 8:01 AM Estimated Blood Loss: Estimated blood loss: none.
--- NOTE | 2019-03-03 08:38 | ROOR ---
Patient Name: Shay Aviles Procedure Date: 03/03/2019 8:02 AM Date of : 1955 Age: 63 Room: [facility] Gender: Male Note Status: Finalized Procedure: Total Colonoscopy to Cecum + Biopsy Polypectomy Indications: Screening for colorectal malignant neoplasm Providers: Davie Howell MD Referring MD: WILLIAM ORELLANA NP Requesting Provider: Medicines: Monitored Anesthesia Care Complications: No immediate complications. Procedure: Pre-Anesthesia Assessment: - The heart rate, respiratory rate, oxygen saturations, blood pressure, adequacy of pulmonary ventilation, and response to care were monitored throughout the procedure. The Colonoscope was introduced through the anus and advanced to the cecum, identified by appendiceal orifice and ileocecal valve. The colonoscopy was performed without difficulty. The patient tolerated the procedure well. The quality of the bowel preparation was excellent. Findings: The perianal and digital rectal examinations were normal. Non-bleeding internal hemorrhoids were found during retroflexion. The hemorrhoids were small and Grade I (internal hemorrhoids that do not prolapse). Multiple small and large-mouthed diverticula were found in the recto-sigmoid colon, sigmoid colon and descending colon. A diminutive polyp was found at 50 cm proximal to the anus. The polyp was sessile. The polyp was removed with a cold biopsy forceps. Resection and retrieval were complete. The exam was otherwise without abnormality on direct and retroflexion views. The mucosa vascular pattern in the rectum was locally increased. Impression: - Non-bleeding internal hemorrhoids. - Diverticulosis in the recto-sigmoid colon, in the sigmoid colon and in the descending colon. - One diminutive polyp at 50 cm proximal to the anus, removed with a cold biopsy forceps. Resected and retrieved. - The examination was otherwise normal on direct and retroflexion views. - Increased mucosa vascular pattern in the rectum. - Radiation proctitis. - The exam was otherwise normal to the cecum. Recommendation: - Patient has a contact number available for emergencies. The signs and symptoms of potential delayed complications were discussed with the patient. Return to normal activities tomorrow. Written discharge instructions were provided to the patient. - High fiber diet. - Discharge patient to home. - Continue present medications. - Await pathology results. - Telephone GI clinic for pathology results in 1 week. - Repeat colonoscopy in 10 years for screening purposes. - Return to referring physician. - Check Portal Online for Path Results.([email or web address] - The findings and recommendations were discussed with the patient's family. Davie Howell MD Davie Howell MD 03/03/2019 8:38:27 AM Electronically signed by Davie Howell MD Number of Addenda: 0 Note Initiated On: 03/03/2019 8:02 AM Estimated Blood Loss: Estimated blood loss: none.
[2019-03-03 09:00] VITALS: BP 108/70
== END 2019-03-03 09:01 | disposition home or self-care (01) ==
LOC: M OPP 06:56
PROVIDERS: ATTEND Internal Medicine Gastroenterology
DX: K64.0 First degree hemorrhoids (principal); D12.6 Benign neoplasm of colon, unspecified; K62.7 Radiation proctitis; K57.30 Diverticulosis of large intestine without perforation or abscess without bleeding; K44.9 Diaphragmatic hernia without obstruction or gangrene; K31.89 Other diseases of stomach and duodenum; K25.9 Gastric ulcer, unspecified as acute or chronic, without hemorrhage or perforation; Z79.82 Long term (current) use of aspirin; Z79.899 Other long term (current) drug therapy; Z87.891 Personal history of nicotine dependence; Z12.11 Encounter for screening for malignant neoplasm of colon

== ENCOUNTER 2019-06-06 07:07 | Emergency (ER) | payer BC ==
[~2019-06-06] VITALS: Ht 177.8 cm; Wt 87.0 kg
[~2019-06-06 07:07] MED LIST changes: -NS 1,000 ML IV ONE
[2019-06-06] MEDS ORDERED: PROBCAP14 PO (07:21)
[2019-06-06] MEDS ORDERED: ZYRTTAB8 PO (07:21)
[2019-06-06] MEDS ORDERED: PROT1TAB2 PO (07:21)
[2019-06-06] MEDS ORDERED: BACL10TA2 PO (07:21)
[2019-06-06] MEDS ORDERED: B COTAB3 PO (07:21)
[2019-06-06] MEDS ORDERED: FLOM0.4C39 PO (07:21)
[2019-06-06 08:00] LABS: BASO % 0.6 % (0.0-1.0); EOS # 0.1 10^3/uL (0.0-0.5); EOS % 2.5 % (0.0-3.0); HEMATOCRIT 42.2 % (42.0-52.0); HEMOGLOBIN 14.2 g/dl (13.5-17.5); LYMPH # 0.7 10^3/uL (1.5-5.0); LYMPH % 14.8 % (24.0-44.0); MEAN CORPUSCULAR HEMOGLOBIN 32.1 pg (27.0-33.0); MEAN CORPUSCULAR HGB CONC 33.6 g/dl (32.0-36.5); MEAN CORPUSCULAR VOLUME 95.3 fl (80.0-96.0); MONO # 0.7 10^3/uL (0.0-0.8); MONO % 15.3 % (0.0-5.0); NEUTROPHILS # 3.1 10^3/uL (1.5-8.5); NEUTROPHILS % 66.2 % (36.0-66.0); PLATELET COUNT, AUTOMATED 176 10^3/uL (150-450); RED BLOOD COUNT 4.43 10^6/uL (4.30-6.10); WHITE BLOOD COUNT 4.7 10^3/uL (4.0-10.0)
[2019-06-06 08:11] LABS: INR 0.93; PROTHROMBIN TIME 12.1 SECONDS (11.8-14.0)
[2019-06-06] MEDS ORDERED: LEVALBUTEROL 1.25 MG/0.5 ML CONCENTRATE NEB INH ONE (08:30)
[2019-06-06 08:41] LABS: ALBUMIN 3.7 GM/DL (3.2-5.2); ALT/SGPT 80 U/L (12-78); BILIRUBIN,DIRECT 0.4 MG/DL (0.0-0.2); BLOOD UREA NITROGEN 21 MG/DL (7-18); CALCIUM LEVEL 9.2 MG/DL (8.8-10.2); CARBON DIOXIDE LEVEL 26 MEQ/L (21-32); CHLORIDE LEVEL 104 MEQ/L (98-107); CK-MB VALUE MASS 2.9 NG/ML (<3.6); CPK CREATINE PHOSPHOKINASE 151 U/L (39-308); CREATININE FOR GFR 1.09 MG/DL (0.70-1.30); GLOMERULAR FILTRATION RATE > 60.0 (>49); GLUCOSE, FASTING 112 MG/DL (70-100); LIPASE 255 U/L (73-393); MAGNESIUM LEVEL 1.5 MG/DL (1.8-2.4); MB/CK RELATIVE INDEX 1.92 (< OR =4); POTASSIUM SERUM 4.5 MEQ/L (3.5-5.1); SODIUM LEVEL 136 MEQ/L (136-145); TOTAL PROTEIN 7.4 GM/DL (6.4-8.2); TROPONIN I < 0.02 NG/ML (< 0.10)
[2019-06-06] MEDS ORDERED: ISOVUE-370 76% 100ML VIAL (Q9967) As Ordered ONE (08:53)
[2019-06-06] MEDS ORDERED: MAG SULF 1GM/100ML (MAG RUN) 1 GM in IV 1 EA IV ONE ×2 (09:00→10:15)
[2019-06-06 09:24] LABS: ETHYL ALCOHOL (ETHANOL) < 0.003 % (0.000-0.010)
--- NOTE | 2019-06-06 09:47 | REP ---
REASON: Dyspneic. COMPARISON: 12/22/2018 FINDINGS: The technique utilized in obtaining the radiograph has magnified the cardiac silhouette and accentuated the interstitial markings. The superior mediastinal structures are midline. The cardiac silhouette is unremarkable in size, shape, and position. The diaphragmatic surfaces of the lungs are regular, and the costophrenic angles are clear. The pulmonary omalley are clear. The imaged osseous structures are intact. IMPRESSION: There is no acute cardiopulmonary disease. Electronically Signed by Brown Martinez DO 06/06/2019 09:50 A
--- NOTE | 2019-06-06 09:54 | REP ---
REASON: Dyspnea. No priors CTA examinations of the chest for comparison. The noncontrast enhanced chest CT obtained 08/24/2014 from [facility] has been reviewed. CONTRAST: 100 mL of Isovue 370. There is excellent visualization of the pulmonary arterial vasculature. There are no focal filling defects present that would be considered consistent with pulmonary emboli. The thoracic aorta is within normal limits. There is no mediastinal or hilar adenopathy. There are no pleural effusions. The imaged upper abdomen is unchanged from the prior exam. Diffuse low density is suspected throughout the hepatic parenchyma, however, no noncontrast enhanced images were obtained on this chest CT with contrast. The osseous structures are stable and intact. Evaluation of the lung omalley shows emphysematous changes essentially stable when the technical differences between the examinations are taken into consideration. Mild bibasilar patchy opacities are seen in the dependent portion of the lung omalley likely from subsegmental atelectatic changes. Large areas of consolidation involving the left lung on the prior examination have all resolved. There are no new abnormal nodules, masses, or opacities. Impression: There is no evidence of a pulmonary embolism. 2. chronic lung field changes as described above. 3. I cannot rule out fatty infiltration of the liver as described above. Unreviewed
[2019-06-06] MEDS ORDERED: SLOWTAB2 PO (12:14)
[2019-06-06] MEDS ORDERED: VENTAER INH (12:19)
[2019-06-06 12:35] VITALS: BP 146/90
--- NOTE | 2019-06-06 19:09 | ECGEPIP ---
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
== END 2019-06-06 12:37 | disposition home or self-care (01) ==
LOC: M ED 07:07
DX: J98.01 Acute bronchospasm (principal); E83.42 Hypomagnesemia; F10.20 Alcohol dependence, uncomplicated; I45.19 Other right bundle-branch block; I49.8 Other specified cardiac arrhythmias; I10 Essential (primary) hypertension; E78.5 Hyperlipidemia, unspecified; Z87.891 Personal history of nicotine dependence; Z85.46 Personal history of malignant neoplasm of prostate; Z79.82 Long term (current) use of aspirin; Z79.899 Other long term (current) drug therapy
CPT/HCPCS: 71045; 71275; 80048; 80076; 82550; 82553; 83690; 83735; 84484; 85025; 85610; 86850; 86900; 86901; 93005; 94640; 96365; 96366; 99285; G0480; J3475; Q9967

== ENCOUNTER → 2019-08-17 | Outpatient (REF) | payer BC, MEDICARE ==
[~2019-08-17] MED LIST changes: +B COTAB3 PO; +BACL10TA2 PO; +PROBCAP14 PO; +SLOWTAB2 PO; +VENTAER INH; +ZYRTTAB8 PO
[2019-08-17 13:28] LABS: ALBUMIN 3.7 GM/DL (3.2-5.2); ALT/SGPT 73 U/L (12-78); BILIRUBIN,TOTAL 0.5 MG/DL (0.2-1.0); BLOOD UREA NITROGEN 17 MG/DL (7-18); CARBON DIOXIDE LEVEL 26 MEQ/L (21-32); CHLORIDE LEVEL 107 MEQ/L (98-107); CHOLESTEROL LEVEL 242 MG/DL (<200); CHOLESTEROL RISK RATIO 3.781 (<5); CREATININE FOR GFR 1.11 MG/DL (0.70-1.30); GLOMERULAR FILTRATION RATE > 60.0 (>49); GLUCOSE, FASTING 89 MG/DL (70-100); HDL CHOLESTEROL 64 MG/DL (>40); LDL CHOLESTEROL 134 MG/DL (<100); NON-HDL-C 178 MG/DL; POTASSIUM SERUM 4.5 MEQ/L (3.5-5.1); SODIUM LEVEL 140 MEQ/L (136-145); TOTAL PROTEIN 7.1 GM/DL (6.4-8.2); TRIGLYCERIDES LEVEL 221 MG/DL (<150)
== END ==
LOC: M SFHCADAM 08:05
PROVIDERS: ATTEND Family Medicine
DX: E83.42 Hypomagnesemia (principal); K22.70 Barrett's esophagus without dysplasia; R74.8 Abnormal levels of other serum enzymes; E78.2 Mixed hyperlipidemia; C61 Malignant neoplasm of prostate

== ENCOUNTER 2019-09-20 07:23 | Emergency (ER) | payer BC, MEDICARE ==
[~2019-09-20] VITALS: Ht 177.8 cm; Wt 88.4 kg
[2019-09-20] MEDS ORDERED: SLOWTAB2 PO (07:56)
[2019-09-20] MEDS: LEVALBUTEROL 1.25 MG/0.5 ML CONCENTRATE NEB NEB PRN ×2 (08:30→08:55)
[2019-09-20] MEDS ORDERED: LORazepam 2 MG TAB PO PRN (08:30)
[2019-09-20 08:35] LABS: BASO % 0.6 % (0.0-1.0); EOS % 0.3 % (0.0-3.0); HEMATOCRIT 45.2 % (42.0-52.0); HEMOGLOBIN 14.9 g/dl (13.5-17.5); LYMPH # 0.7 10^3/uL (1.5-5.0); LYMPH % 10.9 % (24.0-44.0); MEAN CORPUSCULAR VOLUME 97.2 fl (80.0-96.0); MONO # 0.5 10^3/uL (0.0-0.8); MONO % 8.5 % (0.0-5.0); NEUTROPHILS # 4.9 10^3/uL (1.5-8.5); NEUTROPHILS % 79.4 % (36.0-66.0); PLATELET COUNT, AUTOMATED 212 10^3/uL (150-450); RED BLOOD COUNT 4.65 10^6/uL (4.30-6.10); WHITE BLOOD COUNT 6.2 10^3/uL (4.0-10.0)
--- NOTE | 2019-09-20 08:54 | REP ---
Portable chest, 08:28 a.m., single AP view with the patient sitting: Comparisons are 06/06/2019 and 01/08/2018. The lung omalley are clear. The cardiac size is normal. The emory, mediastinum, and skeletal structures are unremarkable. Impression: Negative portable chest. There are no interval changes. Electronically Signed by Ben Ghosh MD 09/20/2019 08:46 A
[2019-09-20] MEDS ORDERED: THIAMINE 100 MG TAB PO SCH (09:00)
[2019-09-20] MEDS ORDERED: FOLIC ACID 1 MG TAB PO SCH (09:00)
[2019-09-20] MEDS ORDERED: MULTIVITAMINS/MINERALS THERAP 1 TAB PO SCH (09:00)
[2019-09-20 09:04] LABS: ALBUMIN 4.1 GM/DL (3.2-5.2); ALT/SGPT 99 U/L (12-78); BILIRUBIN,DIRECT 0.3 MG/DL (0.0-0.2); BILIRUBIN,TOTAL 0.6 MG/DL (0.2-1.0); BLOOD UREA NITROGEN 14 MG/DL (7-18); CALCIUM LEVEL 8.9 MG/DL (8.8-10.2); CARBON DIOXIDE LEVEL 25 MEQ/L (21-32); CHLORIDE LEVEL 99 MEQ/L (98-107); CK-MB VALUE MASS 2.5 NG/ML (<3.6); CPK CREATINE PHOSPHOKINASE 126 U/L (39-308); CREATININE FOR GFR 0.96 MG/DL (0.70-1.30); GLOMERULAR FILTRATION RATE > 60.0 (>49); GLUCOSE, FASTING 122 MG/DL (70-100); MAGNESIUM LEVEL 1.7 MG/DL (1.8-2.4); MB/CK RELATIVE INDEX 1.98 (< OR =4); NT-PRO BNP 34 PG/ML (<125); POTASSIUM SERUM 4.5 MEQ/L (3.5-5.1); SODIUM LEVEL 134 MEQ/L (136-145); TOTAL PROTEIN 7.5 GM/DL (6.4-8.2); TROPONIN I < 0.02 NG/ML (< 0.10)
[2019-09-20 09:40] LABS: INFLUENZA A AMPLIFICATION NEGATIVE (NEGATIVE); INFLUENZA B AMPLIFICATION NEGATIVE (NEGATIVE)
[2019-09-20] MEDS ORDERED: LORazepam 2 MG/ML VIAL (J2060) IV STA (10:21)
[2019-09-20 12:15] LABS: CK-MB VALUE MASS 2.3 NG/ML (<3.6); CPK CREATINE PHOSPHOKINASE 137 U/L (39-308); MB/CK RELATIVE INDEX 1.68 (< OR =4); TROPONIN I < 0.02 NG/ML (< 0.10)
[2019-09-20 12:45] VITALS: BP 140/92
--- NOTE | 2019-09-20 18:42 | ECGEPIP ---
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
--- NOTE | 2019-09-20 18:48 | ECGEPIP ---
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
== END 2019-09-20 12:58 | disposition home or self-care (01) ==
LOC: M ED 07:23
DX: F10.239 Alcohol dependence with withdrawal, unspecified (principal); I10 Essential (primary) hypertension; E78.00 Pure hypercholesterolemia, unspecified; K21.9 Gastro-esophageal reflux disease without esophagitis; Z87.891 Personal history of nicotine dependence
CPT/HCPCS: 71045; 80048; 80076; 82550; 82553; 83735; 83880; 84484; 85025; 85379; 87502; 93005; 93041; 94640; 94760; 96374; 99285; J2060

== ENCOUNTER → 2019-09-29 | Outpatient (REF) | payer BC, MEDICARE ==
[2019-09-29 14:10] LABS: HEMATOCRIT 45.7 % (42.0-52.0); HEMOGLOBIN 14.9 g/dl (13.5-17.5); MEAN CORPUSCULAR HEMOGLOBIN 32.7 pg (27.0-33.0); MEAN CORPUSCULAR HGB CONC 32.6 g/dl (32.0-36.5); MEAN CORPUSCULAR VOLUME 100.2 fl (80.0-96.0); PLATELET COUNT, AUTOMATED 252 10^3/uL (150-450); RED BLOOD COUNT 4.56 10^6/uL (4.30-6.10); WHITE BLOOD COUNT 4.1 10^3/uL (4.0-10.0)
[2019-09-29 14:32] LABS: ALBUMIN 3.9 GM/DL (3.2-5.2); ALT/SGPT 69 U/L (12-78); BILIRUBIN,TOTAL 0.4 MG/DL (0.2-1.0); BLOOD UREA NITROGEN 16 MG/DL (7-18); CALCIUM LEVEL 9.5 MG/DL (8.8-10.2); CARBON DIOXIDE LEVEL 27 MEQ/L (21-32); CHLORIDE LEVEL 104 MEQ/L (98-107); FERRITIN 45 NG/ML (26-388); FOLATE > 24.0 NG/ML; GLOMERULAR FILTRATION RATE > 60.0 (>49); GLUCOSE, FASTING 96 MG/DL (70-100); HEPATITIS B SURFACE ANTIGEN NEGATIVE (NEGATIVE); POTASSIUM SERUM 4.4 MEQ/L (3.5-5.1); SODIUM LEVEL 139 MEQ/L (136-145); VITAMIN B12 LEVEL > 2000 PG/ML
[2019-09-29 14:57] LABS: HEPATITIS B CORE ANTIBODY IGM NEGATIVE (NEGATIVE); HEPATITIS C VIRUS ABY INDEX 0.1 INDEX (<0.8)
[2019-09-29 14:59] LABS: HEPATITIS A ANTIBODY IGM NEGATIVE (NEGATIVE)
[2019-10-01 00:07] LABS: ANA (HEP2) Negative (.)
== END ==
LOC: M SFHCADAM 08:45
PROVIDERS: ATTEND Physician Assistant
DX: E83.42 Hypomagnesemia (principal); K22.70 Barrett's esophagus without dysplasia; R74.8 Abnormal levels of other serum enzymes; F10.10 Alcohol abuse, uncomplicated

== ENCOUNTER 2019-10-28 09:52 | Inpatient (IN) | payer BC, MEDICARE ==
[~2019-10-28] VITALS: Ht 177.8 cm; Wt 84.5 kg
[~2019-10-28 09:52] MED LIST changes: -FLUO20CA19 PO; +FLUO20CA22 PO; -IRBE150T12 PO; +IRBE150T7 PO
[2019-10-28] MEDS ORDERED: METOPROLOL TART 50 MG TAB PO ONE (10:15)
[2019-10-28] MEDS: METOPROLOL 5 MG/5 ML VIAL IV SCH ×3 (10:20→10:36)
[2019-10-28 10:28] LABS: BASO % 0.5 % (0.0-1.0); EOS # 0.1 10^3/uL (0.0-0.5); EOS % 1.3 % (0.0-3.0); HEMATOCRIT 41.6 % (42.0-52.0); MEAN CORPUSCULAR HEMOGLOBIN 32.9 pg (27.0-33.0); MEAN CORPUSCULAR HGB CONC 33.7 g/dl (32.0-36.5); MEAN CORPUSCULAR VOLUME 97.7 fl (80.0-96.0); MONO # 0.6 10^3/uL (0.0-0.8); MONO % 10.5 % (0.0-5.0); NEUTROPHILS # 4.3 10^3/uL (1.5-8.5); NEUTROPHILS % 71.2 % (36.0-66.0); PLATELET COUNT, AUTOMATED 218 10^3/uL (150-450); RED BLOOD COUNT 4.26 10^6/uL (4.30-6.10)
[2019-10-28 10:59] LABS: BLOOD UREA NITROGEN 22 MG/DL (7-18); CALCIUM LEVEL 9.1 MG/DL (8.8-10.2); CARBON DIOXIDE LEVEL 26 MEQ/L (21-32); CHLORIDE LEVEL 107 MEQ/L (98-107); CK-MB VALUE MASS 1.9 NG/ML (<3.6); CPK CREATINE PHOSPHOKINASE 76 U/L (39-308); CREATININE FOR GFR 1.15 MG/DL (0.70-1.30); GLOMERULAR FILTRATION RATE > 60.0 (>49); GLUCOSE, FASTING 94 MG/DL (70-100); POTASSIUM SERUM 4.7 MEQ/L (3.5-5.1); SODIUM LEVEL 138 MEQ/L (136-145); TROPONIN I < 0.02 NG/ML (< 0.10)
--- NOTE | 2019-10-28 11:13 | REP ---
CHEST, SINGLE VIEW: Single view of the chest is performed and compared to prior study of 09/20/2019. There is no acute infiltrate or pulmonary edema. There is mild cardiomegaly. The mediastinal silhouette is unchanged. IMPRESSION: Mild cardiomegaly. No acute infiltrate. Electronically Signed by Ben Henson MD 10/28/2019 08:04 P
[2019-10-28] MEDS ORDERED: AMIODARONE HCL 150 MG in IV 1 EA IV STA ×2 (11:59→13:00)
[2019-10-28] MEDS ORDERED: NS 500 ML IV ONE (12:45)
[2019-10-28 13:53] LABS: INR 1.06; PROTHROMBIN TIME 13.5 SECONDS (11.8-14.0)
[2019-10-28 13:54] LABS: PARTIAL THROMBOPLASTIN TIME 26.8 SECONDS (25.0-38.4)
[2019-10-28 13:56] LABS: ALT/SGPT 262 U/L (12-78); BILIRUBIN,DIRECT 0.3 MG/DL (0.0-0.2); BILIRUBIN,TOTAL 0.7 MG/DL (0.2-1.0); LIPASE 171 U/L (73-393); MAGNESIUM LEVEL 1.9 MG/DL (1.8-2.4)
[2019-10-28] MEDS ORDERED: DIGOXIN INJ 0.5 MG/2 ML AMP (J1160) IV STA (15:03)
[2019-10-28] MEDS ORDERED: ALL10TAB29 PO (16:03)
[2019-10-28] MEDS ORDERED: CRES10TA PO (16:03)
[2019-10-28] MEDS ORDERED: VENTAER INH (16:03)
[2019-10-28] MEDS ORDERED: CLIN1GEL19 TOP (16:03)
[2019-10-28] MEDS ORDERED: VITAD1000T PO (16:03)
[2019-10-28] MEDS ORDERED: SILD100T7 PO (16:03)
[2019-10-28] MEDS ORDERED: LORazepam 2 MG/ML VIAL (J2060) IV PRN (16:15)
[2019-10-28] MEDS ORDERED: OXAZEPAM 10 MG CAP PO PRN (16:15)
[2019-10-28] MEDS ORDERED: ALBUTEROL 90 MCG/ACT 8GM HFA INHALER INH PRN (16:15)
[2019-10-28] MEDS ORDERED: FUROSEMIDE 20 MG/2 ML VIAL (J1940) IV ONE (17:00)
--- NOTE | 2019-10-28 17:08 | HPEPDOC ---
[facility] Medical History & Physical Date of Admission Oct 28, 2019 Date of Service: Oct 28, 2019 History and Physical CHIEF COMPLAINT: Sent from PCP for new onset Atrial Fibrillation with RVR HISTORY OF PRESENT ILLNESS: This is a 64 year old male who presented to the ED from his PCP office via ambulance due to new onset Atrial Fibrillation with RVR and a pulse of 180 that was found today at a routine appointment. Patient has been asymptomatic. He has had this once before back in 2013 after having the flu, pneumonia and septic shock, he followed outpatient with cardiology and a stress test was done which was found to be normal. Patient denies any recent illnesses. In the ER patients pulse is 186, bp is 136/95, afebrile and initial EKG shows atrial fibrillation with RVR. Cardiac markers were negative. He was given m etoprolol, amiodarone and digoxin, with a moderate decrease in heart rate. Patient denies headaches, cough, chest pain, shortness of breath, palpitations, abdominal pain, fevers, chills, and sweats. Cardiology was consulted, hospitalist was called for admission and he was admitted to PCU for further evaluation and monitoring. PAST MEDICAL HISTORY: 1. ETOH abuse 2. Barretts esophagus 3. GI bleed 11/2018 NSAIDs 4. Gastric ulcer 5. HTN 6. PRINCE 7. DDD cervical and lumbar spine 8. Brain aneurysm- s/p coil and 2 stents 9. Hyperlipidemia 10. Prostate s/p RT with cyberknife HOME MEDICATIONS: Please see below. ALLERGIES: Please see below PAST SURGICAL HISTORY: 1. Brain aneurysm s/p coil and stents [facility] 2. TRUS Biopsy Prostate 03/03/2018 3. EGD: gastric ulcer, barretts esophagus 4. Colonoscopy tubular adenomatous polyp 02/2019 SOCIAL HISTORY: Lives with his . Former smoker, quit in 2013 smoked 2 packs per day for 40+ years. He drinks 6 oz of ETOH every night. He denies illicit drug use. FAMILY HISTORY: Father had CHF, A Fib, prostate cancer. Mother breast cancer, aortic valve replacement and A fib. One brother and one sister with A Fib. REVIEW OF SYSTEMS: Constitutional: Denies weight loss, waking, fevers, chills, or night sweats Eyes: Denies visual changes, double vision, blurry vision, floaters, or feeling like a curtain pulled down. Ear nose throat: Denies runny nose, sore throat Cardiovascular: Denies chest pain, shortness of breath, paroxysmal nocturnal dyspnea, orthopnea, edema, or palpitations. Respiratory: Denies cough, sputum production, wheezes, or shortness of breath Gastrointestinal: Reports bloating Denies abdominal pain, difficulty swallowing, loss of appetite, nausea, vomiting, diarrhea, constipation Integumentary: Denies pruritus, rashes, or lesions Neuro: Denies headaches, paresthesias, anesthesias Psychiatric: Denies depression, anxiety, paranoia, anhedonia, or episodes of solomon Endocrine: Denies diarrhea, increased appetite, tremor, palpitations, constipation, dry skin, polydipsia, polyuria, polyphagia Hematologic: Denies any anemia, purpura, or petechiae Lymphatic: Denies any new lumps or bumps anywhere PHYSICAL EXAMINATION: VITAL SIGNS: Please see below. GENERAL: Pleasant 64 year old male who looks younger than stated age lying in bed in no acute distress. HEENT: Atraumatic, normocephalic, moist mucus membranes, no elevated JVD. CARDIOVASCULAR: Distant heart sounds, Tachycardic rate with irregular rhythm, no murmurs, gallops or rubs. RESPIRATORY: Clear to auscultation bilaterally with no wheezes, rhonchi or rales. ABDOMINAL: Bowel sounds present abdomen soft distended and nontender. EXTREMITIES: 1+ pitting edema bilaterally to the knee. NEUROLOGICAL: AOx3, no gross focal deficits. PSYCHOLOGICAL: Appropriate. LABORATORY DATA: See below. IMAGING: Chest Xray impression: Mild cardiomegaly. No acute infiltrate. ASSESSMENT: This is a 64 year old male who presented to the ED from his PCP for new onset atrial fibrillation with RVR and a pulse of 180. He will be admitted to PCU for further evaluation and monitoring on telemetry. PLAN: 1. New onset atrial fibrillation with RVR, likely 2/2 ETOH cardiomyopathy vs familial vs structural abnormalities, unlikely 2/2 metabolic abnormality due to stable electrolytes. -EKG at PCP office showed atrial fibrillation with RVR and his pulse was 180. -cardiac markers were negative -s/p digoxin, amiodarone, metoprolol in the ED -telemetry monitoring -echocardiogram pending to r/o structural abnormalities and CHF. -IFEOMA VASC score is 2 -HAS BLED score is 4. -start eliquis for anticoagulation -start lasix 20 mg IV -another dose of Digoxin will be given tonight per recommendations from cardiology. Dr. Tse will see the patient tonight and make adjustments to the medication as he sees fit. He was unresponsive to metoprolol which is why digoxin will be used tonight. -Dr. Tse has been consulted and we appreciate his input. 2. ETOH abuse -patient drinks 6 oz of whiskey every night. Last drink was last night at 7 pm -[facility] protocol in place. -thiamine PO starting tomorrow. 3. HTN -c/w with home medication with hold parameters for hypotension. 4. PRINCE, noncompliant 5. Hx of GI bleed from gastric ulcer, 11/2018 -monitor H/H -c/w with home Protonix 6. hyperlipidemia -c/w home rovarstatin 7. DDD cervical and lumbar spine -c/w with home gabapentin and baclofen 8. brain aneurysm, s/p coil and 2 stents - c/w home aspirin DVT PROPHYLAXIS: Eliquis CODE STATUS: FULL CODE DISPOSITION: Pending rate control and cardiology recommendations. Patient is admitted inpatient and will likely be here for at least 2 midnights. Vital Signs Vital Signs Date Time Temp Pulse Resp B/P (MAP) Pulse Ox O2 Delivery O2 Flow Rate FiO2 10/28/19 15:13 142 10/28/19 14:15 16 108/80 (89) 94 10/28/19 09:55 98.4 Room Air Laboratory Data Labs 24H Laboratory Tests 2 10/28/19 10:11: Immature Granulocyte % (Auto) 0.5, Neutrophils (%) (Auto) 71.2H, Lymphocytes (%) (Auto) 16.0L, Monocytes (%) (Auto) 10.5H, Eosinophils (%) (Auto) 1.3, Basophils (%) (Auto) 0.5, Neutrophils # (Auto) 4.3, Lymphocytes # (Auto) 1.0L, Monocytes # (Auto) 0.6, Eosinophils # (Auto) 0.1, Basophils # (Auto) 0.0, Nucleated Red Blood Cells % (auto) 0.0, Anion Gap 5L, Glomerular Filtration Rate > 60.0, Calcium Level 9.1, Magnesium Level 1.9, Total Bilirubin 0.7, Direct Bilirubin 0.3H, Aspartate Amino Transf (AST/SGOT) 68H, Alanine Aminotransferase (ALT/SGPT) 262H, Alkaline Phosphatase 88, Total Creatine Kinase 76, Creatine Kinase MB 1.9, Creatine Kinase MB Relative Index 2.50, Troponin I < 0.02, Total Protein 7.0, Albumin 4.0, Albumin/Globulin Ratio 1.33, Lipase 171 10/28/19 13:56: Prothrombin Time 13.5, Prothromb Time International Ratio 1.06, Activated Partial Thromboplast Time 26.8 CBC/BMP Laboratory Tests 10/28/19 10:11 Home Medications Scheduled Aspirin (Aspir 81) 81 Mg Tablet.dr, 81 MG PO DAILY Baclofen (Baclofen) 10 Mg Tablet, 10 MG PO BID Cetirizine HCl (Cetirizine HCl) 10 Mg Tablet, 10 MG PO QHS Cholecalciferol (Vitamin D3) (Vitamin D3) 1,000 Unit Tablet, 1,000 UNITS PO DAILY Clindamycin Phos/Benzoyl Perox (Clindamycin-Benzoyl Perox 1-5%) 25 Gm Gel..gram., 1 DOSE TOP DAILY Fluoxetine Hcl (Fluoxetine HCl) 20 Mg Capsule, 20 MG PO DAILY Gabapentin (Gabapentin) 300 Mg Capsule, 300 MG PO BID AM,LATE AFTERNOON Gabapentin (Gabapentin) 300 Mg Capsule, 600 MG PO QHS Irbesartan (Irbesartan) 150 Mg Tablet, 150 MG PO QHS Lactobacillus Acidophilus (Probiotic) 1 Each Capsule, 1 CAP PO DAILY Magnesium Chloride (Slow-Mag) 71.5 Mg Tablet.dr, 1 TAB PO QHS Pantoprazole Sodium (Protonix) 40 Mg Tablet.dr, 40 MG PO DAILY Rosuvastatin Calcium (Crestor) 10 Mg Tablet, 10 MG PO DAILY HAS NOT STARTED YET Tamsulosin HCl (Flomax) 0.4 Mg Capsule, 0.4 MG PO DAILY Scheduled PRN Albuterol Sulfate (Ventolin Hfa) 18 Gm Hfa.aer.ad, 2 PUFF INH Q6H PRN for SHORTNESS OF BREATH Sildenafil Citrate (Sildenafil Citrate) 100 Mg Tablet, 100 MG PO DAILY PRN for ERECTILE DYSFUNCTION Allergies Coded Allergies: No Known Allergies (Unverified , 10/28/19) A-FIB/CHADSVASC A-FIB History Current/History of A-Fib/PAF?: Yes Current PO Anticoag Therapy: Yes CHASE GUILLERMO OMS-3 Oct 28, 2019 17:08
--- NOTE | 2019-10-28 17:22 | ECGEPIP ---
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
[2019-10-28 17:42] LABS: FREE T4 0.96 NG/DL (0.76-1.46)
[2019-10-28] MEDS ORDERED: THIAMINE 100 MG TAB PO ONE (18:00)
[2019-10-28] MEDS ORDERED: DIGOXIN INJ 0.5 MG/2 ML AMP (J1160) IV ONE (19:00)
[2019-10-28 21:30] VITALS: BP 140/98
[2019-10-28] MEDS ORDERED: METOPROLOL 5 MG/5 ML VIAL IV ONE (23:30)
[2019-10-28] MEDS ORDERED: AMIODARONE HCL 150 MG in IV 1 EA IV ONE (23:30)
[2019-10-28] MEDS: CETIRIZINE (ZyrTEC) 10 MG TAB PO SCH (23:38)
[2019-10-28] MEDS: GABAPENTIN 300 MG CAP PO SCH (23:38)
[2019-10-28] MEDS: IRBESARTAN 150 MG TAB PO SCH (23:38)
[2019-10-28] MEDS: APIXABAN 5 MG TAB (ELIQUIS) PO SCH (23:39)
[2019-10-28] MEDS: BACLOFEN 10 MG TAB PO SCH (23:39)
[2019-10-28] MEDS ORDERED: SIMETHICONE 80 MG CHEW TAB PO PRN (23:45)
[2019-10-28 23:49] VITALS: BP 129/88
[2019-10-28 23:59] VITALS: BP 129/88
[2019-10-29] VITALS (9 sets, daily range): BP systolic 95–130; BP diastolic 57–94
[2019-10-29] MEDS ORDERED: AMIODARONE HCL 150 MG in IV 1 EA IV ONE (01:45)
[2019-10-29] MEDS ORDERED: DIGOXIN INJ 0.5 MG/2 ML AMP (J1160) IV ONE (02:00)
[2019-10-29 05:53] LABS: HEMATOCRIT 41.3 % (42.0-52.0); HEMOGLOBIN 13.8 g/dl (13.5-17.5); MEAN CORPUSCULAR HEMOGLOBIN 32.4 pg (27.0-33.0); MEAN CORPUSCULAR HGB CONC 33.4 g/dl (32.0-36.5); MEAN CORPUSCULAR VOLUME 96.9 fl (80.0-96.0); PLATELET COUNT, AUTOMATED 205 10^3/uL (150-450); RED BLOOD COUNT 4.26 10^6/uL (4.30-6.10); WHITE BLOOD COUNT 5.8 10^3/uL (4.0-10.0)
[2019-10-29] MEDS ORDERED: METOPROLOL TART 25 MG TABLET PO SCH (06:00)
[2019-10-29 06:23] LABS: ALBUMIN 3.5 GM/DL (3.2-5.2); ALT/SGPT 190 U/L (12-78); BILIRUBIN,DIRECT 0.3 MG/DL (0.0-0.2); BILIRUBIN,TOTAL 1.1 MG/DL (0.2-1.0); BLOOD UREA NITROGEN 20 MG/DL (7-18); CALCIUM LEVEL 8.7 MG/DL (8.8-10.2); CARBON DIOXIDE LEVEL 26 MEQ/L (21-32); CHLORIDE LEVEL 106 MEQ/L (98-107); CREATININE FOR GFR 1.11 MG/DL (0.70-1.30); GLOMERULAR FILTRATION RATE > 60.0 (>49); GLUCOSE, FASTING 95 MG/DL (70-100); MAGNESIUM LEVEL 1.8 MG/DL (1.8-2.4); POTASSIUM SERUM 4.2 MEQ/L (3.5-5.1); SODIUM LEVEL 137 MEQ/L (136-145); TOTAL PROTEIN 6.1 GM/DL (6.4-8.2)
[2019-10-29] MEDS ORDERED: AMIODARONE HCL 150 MG in IV 1 EA IV STA ×2 (08:08→14:29)
[2019-10-29] MEDS: PANTOPRAZOLE 40MG TAB (PROTONIX) PO SCH (08:19)
[2019-10-29] MEDS: FLUoxetine 20 MG CAP PO SCH (08:19)
[2019-10-29] MEDS: TAMSULOSIN 0.4 MG CAP PO SCH (08:19)
[2019-10-29] MEDS: BACLOFEN 10 MG TAB PO SCH ×2 (08:19→21:05)
[2019-10-29] MEDS: THIAMINE 100 MG TAB PO SCH (08:19)
[2019-10-29] MEDS: GABAPENTIN 300 MG CAP PO SCH ×3 (08:19→21:05)
[2019-10-29] MEDS: APIXABAN 5 MG TAB (ELIQUIS) PO SCH ×2 (08:19→21:06)
[2019-10-29] MEDS: ROSUVASTATIN 10 MG TAB (CRESTOR) PO SCH (08:19)
[2019-10-29] MEDS: VITAMIN D 1,000 INTERNATIONAL UNITS TABLET PO SCH (08:19)
[2019-10-29] MEDS ORDERED: ASPIRIN 81 MG ENTERIC TAB PO SCH (09:00)
[2019-10-29] MEDS ORDERED: SLF 3 ML SYR IV PRN (11:00)
[2019-10-29] MEDS: METOPROLOL TART 50 MG TAB PO SCH ×2 (12:01→17:20)
[2019-10-29] MEDS: SLF 3 ML SYR IV SCH ×2 (14:42→21:06)
--- NOTE | 2019-10-29 20:11 | ECHO ---
DATE OF PROCEDURE: 10/29/2019 REFERRING PROVIDER: Dr. Renetta Morrell PATIENT LOCATION: Room 3226 REASON FOR THE STUDY: [place] fibrillation. 2D MEASUREMENTS: IVS: 1.1 cm LV: 3.9 cm LVPW: 1.1 cm LA: 4.2 cm Aorta: 3.6 cm RV: 3.7 cm IVC: 1.9 cm DOPPLER MEASUREMENTS: Peak velocity across the aortic valve: 1.2 meters per second Peak velocity across the LVOT: 1.1 meters per second Mitral E: 0.95 Maximum tricuspid valve velocity: 2.3 meters per second 2D COMMENTS: 1. Normal left ventricular size, wall thickness, and normal global left ventricular systolic function. The estimated left ventricular systolic ejection fraction is 60-65%. 2. Mildly enlarged left atrium. Subjectively, the right atrium appeared to be mildly enlarged. Normal right ventricle. 3. The atrial septum appeared to be normal without evidence of defect or shunt. 4. Normal aortic root. 5. A small pericardial effusion was noted, no evidence of cardiac tamponade. 6. Mildly calcified aortic valve with normal leaflet excursion. Mildly calcified mitral annulus with normal anterior mitral valve leaflet motion. Normal tricuspid valve and pulmonic valve. The proximal pulmonary artery branches also appear to be normal. 7. The inferior vena cava was normal in size, central venous pressure is most likely normal. DOPPLER: It detects trace aortic regurgitation, mild to moderate mitral regurgitation, mild to moderate tricuspid regurgitation, and trace pulmonic regurgitation. The calculated pulmonary artery systolic pressure varies between 30-40 mmHg. Assessment of the left ventricular diastolic function was limited in view of the underlying atrial fibrillation. IMPRESSION: 1. Normal global left ventricular systolic function. Assessment of the left ventricular diastolic function was limited in view of the underlying atrial fibrillation. 2. Aortic valve sclerosis with trace aortic regurgitation but no aortic stenosis. 3. Mitral annulus calcification with a mildly enlarged left atrium and mild to moderate mitral regurgitation. 4. Mild to moderate tricuspid regurgitation with mild pulmonary hypertension. Subjectively, the right atrium appeared to be mildly enlarged. 5. A small pericardial effusion was noted, no evidence of cardiac tamponade.
[2019-10-29] MEDS: IRBESARTAN 150 MG TAB PO SCH (21:00)
[2019-10-29] MEDS: CETIRIZINE (ZyrTEC) 10 MG TAB PO SCH (21:05)
--- NOTE | 2019-10-29 21:28 | IPN ---
DATE: 10/29/2019 Shay was seen in the PCU, admitted from the office. He came in with routine office visit and found to have a heart rate of 180 and to be in atrial fibrillation; he was admitted for this. He has a history of alcohol abuse, Barrette's esophagus with gastrointestinal (GI) bleed 12/11, gastric ulcer, hypertensive heart disease, sleep apnea for which he does not wear any device. He had a brain aneurysm that was coiled and stented at [facility]. He feels well. Denies palpitations, chest pain or shortness of breath. He does not think he is having any alcohol withdrawal. He has a baseline tremor, which contributed to essential tremor. PHYSICAL EXAMINATION: Pulse of 130, the lowest it has been in the 1-teens. Blood pressure (BP) is 130/80. GENERAL APPEARANCE: He is resting comfortably, in no distress. HEENT: Unremarkable. Lungs are clear. Heart: Regular rate and rhythm, tachycardiac. No murmur. Abdomen soft, nontender, no masses. No peripheral edema. LABORATORY: Complete blood count (CBC): White count of 5.8, hemoglobin 13.8, platelets 205. Free T4, thyroid simulating hormone (TSH) normal. Sodium 137, potassium 4.2, BUN 20, creatinine 1.0, glucose of 85. A chest x-ray showed mild cardiomegaly. No active disease. IMPRESSION: 1. Atrial fibrillation, rapid ventricular rate. Heart rate is still tachycardiac. He is on metoprolol and will augment the dose. He is anticoagulated with Eliquis. Dr. Tse from cardiology has been consulted. Echocardiogram is pending. He has been loaded with amiodarone per cardiology recommendation. He says he is coagulated with Eliquis. He is also on aspirin 81 mg daily which we will discontinue particularly with a past history of gastrointestinal (GI) bleed. 2. Essential tremor. He is to continue with his gabapentin. 3. Hypertension. Blood pressure is well controlled. He is on Avapro and we have increased the dose of metoprolol. 4. History of alcohol abuse. No signs of withdrawal. He is on Serax and thiamine. 5. Prostate cancer. Currently on Flomax. 6. History of depression. Continue with fluoxetine 20 mg daily
[2019-10-30] VITALS (9 sets, daily range): BP systolic 93–113; BP diastolic 59–74
[2019-10-30] MEDS ORDERED: DIGOXIN INJ 0.5 MG/2 ML AMP (J1160) IV ONE (00:45)
[2019-10-30] MEDS: METOPROLOL TART 50 MG TAB PO SCH ×4 (06:00→18:38)
[2019-10-30] MEDS: SLF 3 ML SYR IV SCH ×3 (06:00→20:15)
[2019-10-30 06:17] LABS: HEMATOCRIT 41.4 % (42.0-52.0); HEMOGLOBIN 13.7 g/dl (13.5-17.5); MEAN CORPUSCULAR HEMOGLOBIN 32.6 pg (27.0-33.0); MEAN CORPUSCULAR HGB CONC 33.1 g/dl (32.0-36.5); MEAN CORPUSCULAR VOLUME 98.6 fl (80.0-96.0); PLATELET COUNT, AUTOMATED 207 10^3/uL (150-450); WHITE BLOOD COUNT 5.9 10^3/uL (4.0-10.0)
[2019-10-30 06:33] LABS: BLOOD UREA NITROGEN 20 MG/DL (7-18); CALCIUM LEVEL 8.9 MG/DL (8.8-10.2); CARBON DIOXIDE LEVEL 27 MEQ/L (21-32); CHLORIDE LEVEL 107 MEQ/L (98-107); CREATININE FOR GFR 1.19 MG/DL (0.70-1.30); GLOMERULAR FILTRATION RATE > 60.0 (>49); GLUCOSE, FASTING 97 MG/DL (70-100); POTASSIUM SERUM 4.1 MEQ/L (3.5-5.1); SODIUM LEVEL 139 MEQ/L (136-145)
--- NOTE | 2019-10-30 07:16 | CR ---
DATE OF CONSULTATION: 10/29/2019 REFERRING PHYSICIAN: Shalom Norris MD REASON FOR CONSULTATION: Atrial fibrillation. HISTORY OF PRESENT ILLNESS: Mr. Shay Aviles is a 64-year-old male with a history of hypertension, hyperlipidemia as well as obstructive sleep apnea, and arthritis, has been doing relatively well, on and off medications for his high blood pressure. About 2 months ago, yesterday seeing a new primary in [place] and he was started on treatment for his hypertension. On that day he was admitted at [facility], he went for followup and he was found to be in atrial fibrillation with a rapid ventricular rate. He was referred to the ER and upon arrival, his blood pressure was 136/95 with a pulse of 156 reported to be 186 beats per minute. He was afebrile and he denied any chest pain, shortness of breath, palpitations. There is no pedal edema. He was treated in the ER with IV amiodarone and IV/p.o. beta-abraham to avail. Case was discussed with the ER provider and he was started on loading dose of digoxin. We continue to give him IV amiodarone. He was admitted to PCU for further management and monitoring. He also was giving IV Lasix/furosemide, 20 mg and he has had good urine output. This morning when I saw him, he was supine in bed, in no acute distress, and once again he denies any chest pain, shortness of breath or palpitations. There is no orthopnea or paroxysmal nocturnal dyspnea (PND). He has not been coughing and he denies any fever or chills. He denies any bleeding. He has no pedal edema. There is no focal manifestation. Yesterday, he was started on anticoagulation therapy with Eliquis. He has no abdominal pain, nausea, vomiting, diarrhea, melena or hematemesis. There is no active swelling or redness of the joints. PAST MEDICAL HISTORY: He has a past medical history as mentioned above, positive for hypertension, hyperlipidemia, obstructive sleep apnea, arthritis with degenerative joint disease and degenerative disease, and in November of 2018, he was taking NSAID for pain and developed GI bleeding. He also was diagnosed with Tamez's esophagus. He stated he drinks regularly. For his back, he was in vacation with his and was swimming, he developed a weakness in his left leg. He was evaluated in [place], [place] at [facility] and he was found to have a brain aneurysm and he said it was large. This was addressed with a coil and stent placement. There is no known history of positive coronary artery disease, myocardial infarction, significant valvular heart disease, cardiomyopathy, transient ischemic attack (TIA)/CVA, sudden cardiac . He denies diabetes mellitus, kidney disease. Years ago, he stated that he had atrial fibrillation and he was mechanically cardioverted at [facility]. PAST SURGICAL HISTORY: Past surgical history is positive for brain aneurysm repair at [facility], biopsy of the prostate in February 2018, EGD that revealed a gastric ulcer and Tamez's esophagus, colonoscopy that revealed tubular adenoma and some polyps in February 2019. MEDICATIONS AT HOME: - aspirin 81 mg by mouth daily - baclofen 10 mg by mouth twice a day - Cetirizine 10 mg by mouth daily - vitamin D3 1000 units by mouth daily - fluoxetine 20 mg by mouth daily - gabapentin 300 mg by mouth twice a day and 600 mg by mouth at bedtime - irbesartan 150 mg by mouth at bedtime - magnesium chloride/Slow-Mag 1 tablet by mouth daily - pantoprazole 40 mg by mouth daily - Rosuvastatin 10 mg by mouth daily - tamsulosin 0.4 mg by mouth daily - albuterol sulfate as needed for shortness of breath - sildenafil citrate 100 mg also as needed for erectile dysfunction SOCIAL HISTORY The patient lives with his and he is a former smoker. He quit smoking in 2013. He drinks alcohol regularly. He denies any illicit drugs. ALLERGIES: NO KNOWN DRUG ALLERGIES. ADVANCED DIRECTIVES: The patient is a FULL CODE. FAMILY HISTORY He claims that his father had congestive heart failure, atrial fibrillation and prostate cancer. His mother had aortic valve replacement and atrial fibrillation. Siblings: One brother and one sister with atrial fibrillation. PHYSICAL EXAMINATION The patient is alert and oriented, in no acute distress. Vitals: His vital signs earlier this morning when I saw him revealed a blood pressure of 130/80 with a pulse of 130, respiration 20 and his maximum temperature was 98 degrees Fahrenheit with an oxygen saturation of 95% on room air. Head: Atraumatic. Neck: Supple without any JVD or carotid bruits. Lungs: Did not reveal any wheezing or crackles. Heart examination: Revealed an irregular heart sound without gallops. The PMI is not displaced. There is no rub. I could not appreciate any murmurs. Abdomen: Soft and nontender. Extremities: Revealed no pedal edema. Neurological examination: Negative for focal deficit. LABORATORY DATA CBC done this morning revealed a WBC of 5.8, hemoglobin 13.8, hematocrit 41.3 and platelet 205,000. On admission, hemoglobin/hematocrit were 14.0 and 41.6 respectively. BMP done today revealed a sodium of 137, potassium 4.2, chloride 106, CO2 26, BUN 20, creatinine 1.1, GFR more than 60. Fasting glucose 95 and calcium 8.7. Serum magnesium is 1.8. Liver enzymes revealed a total bilirubin of 1.1, direct bilirubin 0.3, AST 36, ALT 190, alkaline phosphatase 80 and total protein 6.1. Serum TSH is 1.07. Magnesium on admission was 1.8. AST and ALT on admission 10/28/2019 were 68 and 260 respectively. Serum troponin on admission was less than 0.02. PT on admission was 13.5 and INR 1.06 and a PTT of 26.8. Chest x-ray revealed mild cardiomegaly, otherwise no acute disease process. Echocardiogram on admission 10/28/2019 at 10:10:26 revealed atrial fibrillation at 150 beats per minute, incomplete right bundle branch block and nonspecific ST-T abnormalities. IMPRESSION 1. Atrial fibrillation, newly diagnosed and well tolerated. The patient is asymptomatic from a cardiac point of view. His heart rate somehow has improved but continued to be elevated. I was informed after his echocardiogram that his ejection fraction (EF) was normal and he was started on metoprolol tartrate. We will continue to give him IV amiodarone and hopefully it will help in slowing the heart rate. There is no need at this present time for the digoxin. Will increase the beta abraham as needed in order to control his heart rate. He is on Eliquis for prevention of thromboembolic events and he denies any bleeding. He had an echocardiogram done and according to the preliminary report, left ventricular ejection fraction (LVEF) is normal. This will be reviewed. 2. Hypertension, being addressed, and he will be monitored. 3. Hyperlipidemia, on a statin. 4. History of obstructive sleep apnea. 5. History of arthritis with degenerative joint disease and degenerative disease. 6. History of symptomatic brain aneurysm. Repaired at [facility]. 7. History of anxiety/depression. 8. History of GI bleeding and at that time the patient was on NSAIDs. 9. BPH, on med. It was a pleasure to participate in the care of Mr. Shay Aviles for his underlying cardiac condition. I will continue to monitor him along with you while in the hospital and upon discharge as needed. He appears to be stable from a cardiac point of view. Hopefully, he will be able to go home by Friday or Friday. We have discussed about alcohol restriction and cessation but he does not appear to be quite ready. He will need to be monitored for DTs.
[2019-10-30] MEDS: APIXABAN 5 MG TAB (ELIQUIS) PO SCH ×2 (09:11→20:15)
[2019-10-30] MEDS: BACLOFEN 10 MG TAB PO SCH ×2 (09:11→20:15)
[2019-10-30] MEDS: ROSUVASTATIN 10 MG TAB (CRESTOR) PO SCH (09:11)
[2019-10-30] MEDS: TAMSULOSIN 0.4 MG CAP PO SCH (09:11)
[2019-10-30] MEDS: PANTOPRAZOLE 40MG TAB (PROTONIX) PO SCH (09:11)
[2019-10-30] MEDS: VITAMIN D 1,000 INTERNATIONAL UNITS TABLET PO SCH (09:11)
[2019-10-30] MEDS: FLUoxetine 20 MG CAP PO SCH (09:11)
[2019-10-30] MEDS: GABAPENTIN 300 MG CAP PO SCH ×3 (09:11→20:15)
[2019-10-30] MEDS: THIAMINE 100 MG TAB PO SCH (09:11)
[2019-10-30] MEDS ORDERED: AMIODARONE HCL 150 MG in IV 1 EA IV ONE (11:15)
--- NOTE | 2019-10-30 12:42 | IPNPDOC ---
Subjective Date Seen The patient was seen on 10/30/19. Subjective Chief Complaint/HPI no cp, no dyspnea, but concerned about discomfort and swelling left arm above antecubital iv site Constitutional: Denies: Chills ENT: Denies: Head Aches, Dysphagia Pulmonary: Denies: Dyspnea, Cough Cardiovascular: Denies: Chest Pain, Orthopnea Gastrointestinal: Denies: Nausea, Abdominal Pain Hematologic: Denies: Bruising Musculoskeletal: Reports: Arm Pain (left upper arm somewhat tender); Denies: Neck Pain Neurological: Denies: Weakness, Numbness Psych: Reports: Mood Normal Objective Physical Examination General Exam: Positive: Alert, Cooperative Eye Exam: Positive: PERRLA ENT Exam: Positive: Atraumatic Neck Exam: Positive: Supple; Negative: thyromegaly Chest Exam: Positive: Clear to auscultation, Normal air movement Heart Exam: Positive: Tachycardic, Irregular Rhythm Telemetry: Positive: Atrial fibrillation Abdomen Exam: Positive: Normal bowel sounds, Soft; Negative: Tenderness Extremity Exam: Negative: Clubbing Skin Exam: Negative: Nl turgor and temperature Neuro Exam: Positive: Normal Gait Psych Exam: Positive: Mental status NL Assessment /Plan Problems (1) Atrial fibrillation with RVR Status: Acute Response to Treatment: Improving Problem Specific Plan: Monitor Clinically Problem Text: am metoprolol held so parameter altered. rate improving, Dr. Tse ordered IV amiodarone. (2) Alcohol withdrawal Status: Acute Response to Treatment: Stable Problem Text: oxazepam, lorazepam ordered. [facility] protocol. (3) Left upper arm pain Status: Acute Response to Treatment: Worse Problem Text: will obtain U/S, if acute brachial vein thrombus identified then increase Eliquis to 10mg bid. Hot packs ordered. Plan/VTE VTE Prophylaxis Ordered?: Yes VS, I&O, 24H, Fishbone Vital Signs/I&O Vital Signs Date Time Temp Pulse Resp B/P (MAP) Pulse Ox O2 Delivery O2 Flow Rate FiO2 10/30/19 12:17 130 113/69 10/30/19 12:00 97.6 18 93 Room Air I&O- Last 24 Hours up to 6 AM 10/30/19 06:00 Intake Total 960 ml Output Total 1675 ml Balance -715 ml Laboratory Data 24H LABS Laboratory Tests 2 10/30/19 05:23: Nucleated Red Blood Cells % (auto) 0.0, Anion Gap 5L, Glomerular Filtration Rate > 60.0, Calcium Level 8.9 CBC/BMP Laboratory Tests 10/30/19 05:23 Long Valle MD Oct 30, 2019 12:42
--- NOTE | 2019-10-30 13:33 | REP ---
Left upper extremity duplex venous ultrasound: History: Question venous thrombosis. Findings: The left internal jugular, axillary, brachial, and basilic veins are anechoic and compressible in the left upper extremity. Color flow imaging is homogeneous. Spectral Doppler interrogation is unremarkable. There is a short segment of linear nonocclusive thrombus in the distal left cephalic vein at the site of a recently removed intravenous cannula. No other evidence of left upper extremity venous thrombosis. Impression: There is nonocclusive linear thrombosis in a short segment of the distal cephalic vein on the left adjacent to the site of recent IV removal. Otherwise negative left upper extremity venous ultrasound. Electronically Signed by Sotero Razo MD 10/30/2019 01:25 P
[2019-10-30] MEDS: CETIRIZINE (ZyrTEC) 10 MG TAB PO SCH (20:15)
[2019-10-31] VITALS (9 sets, daily range): BP systolic 94–135; BP diastolic 66–97
[2019-10-31] MEDS: METOPROLOL TART 50 MG TAB PO SCH ×2 (01:04→06:40)
[2019-10-31 05:55] LABS: HEMATOCRIT 41.2 % (42.0-52.0); HEMOGLOBIN 13.5 g/dl (13.5-17.5); MEAN CORPUSCULAR HEMOGLOBIN 32.2 pg (27.0-33.0); MEAN CORPUSCULAR HGB CONC 32.8 g/dl (32.0-36.5); MEAN CORPUSCULAR VOLUME 98.3 fl (80.0-96.0); PLATELET COUNT, AUTOMATED 209 10^3/uL (150-450); RED BLOOD COUNT 4.19 10^6/uL (4.30-6.10)
[2019-10-31 06:18] LABS: BLOOD UREA NITROGEN 19 MG/DL (7-18); CALCIUM LEVEL 8.5 MG/DL (8.8-10.2); CARBON DIOXIDE LEVEL 25 MEQ/L (21-32); CHLORIDE LEVEL 112 MEQ/L (98-107); CREATININE FOR GFR 1.15 MG/DL (0.70-1.30); GLOMERULAR FILTRATION RATE > 60.0 (>49); GLUCOSE, FASTING 94 MG/DL (70-100); POTASSIUM SERUM 4.1 MEQ/L (3.5-5.1); SODIUM LEVEL 143 MEQ/L (136-145)
[2019-10-31] MEDS: SLF 3 ML SYR IV SCH ×3 (06:45→21:19)
[2019-10-31] MEDS: APIXABAN 5 MG TAB (ELIQUIS) PO SCH ×2 (09:46→21:18)
[2019-10-31] MEDS: ROSUVASTATIN 10 MG TAB (CRESTOR) PO SCH (09:46)
[2019-10-31] MEDS: THIAMINE 100 MG TAB PO SCH (09:46)
[2019-10-31] MEDS: GABAPENTIN 300 MG CAP PO SCH ×3 (09:46→21:17)
[2019-10-31] MEDS: BACLOFEN 10 MG TAB PO SCH ×2 (09:46→21:18)
[2019-10-31] MEDS: FLUoxetine 20 MG CAP PO SCH (09:46)
[2019-10-31] MEDS: VITAMIN D 1,000 INTERNATIONAL UNITS TABLET PO SCH (09:46)
[2019-10-31] MEDS: TAMSULOSIN 0.4 MG CAP PO SCH (09:46)
[2019-10-31] MEDS: PANTOPRAZOLE 40MG TAB (PROTONIX) PO SCH (09:46)
--- NOTE | 2019-10-31 12:35 | IPNPDOC ---
Subjective Date Seen The patient was seen on 10/31/19. Subjective Chief Complaint/HPI not aware of palpitations or tachycardia unless he puts his hand on his chest. no dyspnea or chest pain. Constitutional: Denies: Chills, Night Sweats ENT: Denies: Head Aches Skin: Denies: Rash Pulmonary: Denies: Dyspnea, Cough Cardiovascular: Denies: Chest Pain, Palpitations Gastrointestinal: Denies: Nausea, Abdominal Pain Genitourinary: Denies: Other Symptoms Hematologic: Denies: Bruising Neurological: Denies: Weakness, Numbness Psych: Reports: Mood Normal Objective Physical Examination General Exam: Positive: Alert, Cooperative Eye Exam: Positive: PERRLA ENT Exam: Positive: Atraumatic Neck Exam: Positive: Supple; Negative: thyromegaly Chest Exam: Positive: Clear to auscultation, Normal air movement Heart Exam: Positive: Tachycardic, Irregular Rhythm (rate is highly variable from 80's to 120's still) Telemetry: Positive: Atrial fibrillation Abdomen Exam: Positive: Normal bowel sounds, Soft; Negative: Tenderness Extremity Exam: Negative: Clubbing Skin Exam: Negative: Nl turgor and temperature Neuro Exam: Positive: Normal Gait Psych Exam: Positive: Mental status NL Assessment /Plan Problems (1) Atrial fibrillation with RVR Status: Acute Response to Treatment: Improving Problem Specific Plan: Monitor Clinically Problem Text: 10/30 will want to change to metoprolol succinate at discharge but still not adequately controlled. am metoprolol held so parameter altered. rate improving, Dr. Tse ordered IV amiodarone. (2) Alcohol withdrawal Status: Acute Response to Treatment: Stable Problem Text: oxazepam, lorazepam ordered. [facility] protocol. (3) Left upper arm pain Status: Acute Response to Treatment: Worse Problem Text: 10/30 superficial cephalic vein clot at IV site identified by u/s. unless worsening will not increase eliquis; continue 5mg bid for now. will obtain U/S, if acute brachial vein thrombus identified then increase Eliquis to 10mg bid. Hot packs ordered. Plan/VTE VTE Prophylaxis Ordered?: Yes VS, I&O, 24H, Fishbone Vital Signs/I&O Vital Signs Date Time Temp Pulse Resp B/P (MAP) Pulse Ox O2 Delivery O2 Flow Rate FiO2 10/31/19 08:00 97.6 125 20 107/66 (80) 93 Room Air I&O- Last 24 Hours up to 6 AM 10/31/19 06:00 Intake Total 2110 ml Output Total 1525 ml Balance 585 ml Laboratory Data 24H LABS Laboratory Tests 2 10/31/19 05:27: Nucleated Red Blood Cells % (auto) 0.0, Anion Gap 6L, Glomerular Filtration Rate > 60.0, Calcium Level 8.5L CBC/BMP Laboratory Tests 10/31/19 05:27 Long Valle MD Oct 31, 2019 12:35
--- NOTE | 2019-10-31 16:40 | IPN ---
DATE: 10/31/2019 Mr. Shay Aviles was seen earlier today, he was laying supine in bed in no acute distress at rest. He continues to be in atrial fibrillation with uncontrolled ventricular rate, but this has improved significantly. He is currently on maximum dose of metoprolol tartrate and at times, he receives intravenous (IV) amiodarone. Blood pressure, also at times, has been running low, but normal. He denies any chest pain, shortness of breath, orthopnea or paroxysmal nocturnal dyspnea (PND), pedal edema, syncope, near syncope, dizziness. He denies any bleeding. He denies any palpitations. He has not been coughing. He was initially admitted on 10/28/2019, transferred from his primary physician's office, he was in atrial fibrillation with a rapid ventricular rate reported to be up to 180 beats per minute at times. He denies any nausea, vomiting, diarrhea, melena or hematemesis. PHYSICAL EXAMINATION: The patient is alert and oriented, in no acute distress at rest. VITAL SIGNS: When I saw him earlier today revealed a heart rate that varied between 100-130 beats per minute, respiration 18 and his maximum temperature is 97.7 degrees Fahrenheit, with oxygen saturation of 94% on room air. EXAMINATION OF THE HEAD: Atraumatic. NECK: Supple and no jugular venous distention (JVD) appreciated. LUNGS: Did not reveal any wheezing or crackles. HEART EXAMINATION: Revealed irregular sounds without gallops. The point of maximum impulse (PMI) is not displaced. There is no rub. ABDOMEN: Unremarkable. EXTREMITIES: Reveal no pedal edema. NEUROLOGICAL EXAMINATION: Negative for focal deficit. LABORATORY DATA: Complete blood count (CBC) done today revealed a WBC of 5.0, hemoglobin 13.5, hematocrit 41.2 and platelet 209,000. Basic metabolic panel (BMP) revealed a sodium of 143, potassium 4.1, chloride 112, CO2 25, BUN 19, creatinine 1.15, GFR more than 60, fasting glucose 94 and calcium 8.1. Doppler of the left lower extremity done on 10/30/2019 was negative for deep venous thrombosis (DVT). IMPRESSION: 1. Atrial fibrillation, newly diagnosed, with uncontrolled ventricular rate. The patient currently is asymptomatic, on 200 mg total dose of metoprolol tartrate and I will continue the same. His blood pressure was low at times but still normal. Today, I will change his metoprolol to twice a day and I have started a small dose of short-acting calcium channel abraham. He will be monitored. He probably can be discharged home tomorrow morning or later today if it is okay with Dr. Randall. He is on Eliquis for prevention of thromboembolic events. If he goes home, he will stop by the office this coming Friday for a Holter monitor, then further recommendation will be given. Echocardiogram done this hospitalization revealed a normal global left ventricular systolic function. He TSH is normal. He has persistent uncontrolled ventricular rate, even though this has improved. It is probably related to his alcoholism. 2. Hypertension. Under control. 3. History of hyperlipidemia, on a statin. 4. History of obstructive sleep apnea, being addressed. 5. History of arthritis with degenerative joint disease and degenerative disc disease. 6. History of brain aneurysm, was symptomatic and this was repaired at [facility]. 7. History of anxiety/depression. 8. History of benign prostatic hypertrophy (BPH).. 9. History of gastrointestinal (GI) bleeding in November 2018 and at that time the patient was on nonsteroidal anti-inflammatory drugs (NSAIDs). It was it was a pleasure to participate the care of Mr. Shay Aviles for his underlying cardiac condition. His condition has improved significantly, but his heart rate is still not quite under control. As mentioned above, he can be discharged home today or tomorrow on the small dose of short-acting Cardizem and on the metoprolol tartrate. He has a normal left ventricular ejection fraction (LVEF). This coming Friday, I will have a Holter monitor, then further recommendations will be given.
[2019-10-31] MEDS: CETIRIZINE (ZyrTEC) 10 MG TAB PO SCH (21:18)
[2019-10-31] MEDS: METOPROLOL TARTRATE 100 MG TAB PO SCH (21:18)
--- NOTE | 2019-10-31 21:34 | IPN ---
DATE: 10/30/2019 Mr. Aviles was seen early this morning. He was laying supine in bed in no acute distress at rest. He denies any chest pain, shortness of breath, palpitations. There is no orthopnea or paroxysmal nocturnal dyspnea (PND). He has no pedal edema. There is no bleeding. He was initially admitted on 10/28/2019. He was found essentially to be atrial fibrillation with rapid ventricular rate. He was initially treated with intravenous (IV) digoxin after being managed in the emergency room (ER), but his blood pressure remained stable and yesterday he was started on metoprolol tartrate. He also has been on apixaban for prevention of thromboembolic events. His heartbeat, according to telemetry, has improved, but he remains very fast at times, particularly with activities, up to a heart rate of about 140 beats per minute. At times, he drops between 100 and 110 beats per minute. Yesterday, he had an echocardiogram done and it revealed a normal global left ventricular systolic function with mild to moderate mitral and tricuspid regurgitation. PHYSICAL EXAMINATION: Patient is alert and oriented, in no acute distress at rest. VITAL SIGNS: This morning revealed a blood pressure of 110/70, with a pulse that varied between 120 and 148, respiratory rate 18, and his maximum temperature was 97.8 degrees Fahrenheit, with an oxygen saturation of 100% on room air. He had a fluid balance of about 40 mL for 10/29/2019. EXAMINATION OF THE HEAD: Atraumatic. Neck is supple and no jugular venous distention (JVD) appreciated. LUNGS: Clear bilaterally on auscultation without any wheezing or crackles. CARDIOVASCULAR EXAMINATION: Revealed irregular heart sounds without gallops. The point of maximum impulse (PMI) is not displaced. There is no rub. I did not appreciate any murmurs. ABDOMEN: Unremarkable. EXTREMITIES: Revealed no pedal edema. NEUROLOGICAL EXAMINATION: Negative for focal deficit. LABORATORY DATA: Complete blood count (CBC) done today revealed a WBC of 5.9, hemoglobin 13.7, hematocrit 41.4, and platelets 207,000. Basic metabolic panel (BMP) revealed a sodium of 139, potassium 4.1, chloride 107, CO2 27, BUN 20, creatinine 1.19, GFR more than 60, fasting glucose 97, and calcium 8.9. Telemetry revealed atrial fibrillation, premature ventricular contractions (PVCs) also noted in triplets at times. IMPRESSION: 1. Atrial fibrillation, newly diagnosed on 10/28/2019 by his primary. Patient was asymptomatic with a heart rate that varied between 150-180 beats per minute. His heart rate has improved, but continues to be elevated at times, particularly with activities. We will continue with the current dose of the beta-abraham. Will stay away from the digoxin. Will give him amiodarone as needed and hopefully, this will help in controlling better his ventricular rate. He is on apixaban for prevention of thromboembolic events and no bleeding has been reported. 2. Hypertension. Under control with the beta-abraham and continue the same. 3. Hyperlipidemia. On a statin. 4. History of obstructive sleep apnea. 5. History of degenerative joint disease and degenerative disc disease. 6. History of symptomatic brain aneurysm, repaired at [facility]. 7. History of anxiety/depression. 8. History of gastrointestinal (GI) bleeding and at that time, patient was on nonsteroidal anti-inflammatory drugs (NSAIDs), November 2018. It was a pleasure to participate in the care of . Shay Aviles for his underlying cardiac condition. I will continue to monitor him along with you. We most likely an discharge him by Friday. It appears he would be compliant with medications and followup.
[2019-11-01] VITALS: BP 110/64
[2019-11-01 04:00] VITALS: BP 106/60
[2019-11-01 05:12] LABS: HEMATOCRIT 40.1 % (42.0-52.0); HEMOGLOBIN 13.3 g/dl (13.5-17.5); MEAN CORPUSCULAR HEMOGLOBIN 32.4 pg (27.0-33.0); MEAN CORPUSCULAR HGB CONC 33.2 g/dl (32.0-36.5); MEAN CORPUSCULAR VOLUME 97.6 fl (80.0-96.0); PLATELET COUNT, AUTOMATED 215 10^3/uL (150-450); RED BLOOD COUNT 4.11 10^6/uL (4.30-6.10); WHITE BLOOD COUNT 4.4 10^3/uL (4.0-10.0)
[2019-11-01 05:40] LABS: BLOOD UREA NITROGEN 18 MG/DL (7-18); CALCIUM LEVEL 8.9 MG/DL (8.8-10.2); CARBON DIOXIDE LEVEL 26 MEQ/L (21-32); CHLORIDE LEVEL 108 MEQ/L (98-107); CREATININE FOR GFR 1.12 MG/DL (0.70-1.30); GLOMERULAR FILTRATION RATE > 60.0 (>49); GLUCOSE, FASTING 92 MG/DL (70-100); POTASSIUM SERUM 3.9 MEQ/L (3.5-5.1); SODIUM LEVEL 138 MEQ/L (136-145)
[2019-11-01] MEDS: SLF 3 ML SYR IV SCH (06:21)
[2019-11-01 08:00] VITALS: BP 100/65
[2019-11-01] MEDS ORDERED: ELIQ5TAB PO (09:14)
[2019-11-01] MEDS ORDERED: DILT120C78 PO (09:14)
[2019-11-01] MEDS ORDERED: LOPR1TAB7 PO (09:14)
[2019-11-01] MEDS ORDERED: THIA100TA PO (09:14)
[2019-11-01] MEDS: THIAMINE 100 MG TAB PO SCH (09:32)
[2019-11-01] MEDS: VITAMIN D 1,000 INTERNATIONAL UNITS TABLET PO SCH (09:32)
[2019-11-01 09:33] VITALS: BP 100/65
[2019-11-01] MEDS: APIXABAN 5 MG TAB (ELIQUIS) PO SCH (09:33)
[2019-11-01] MEDS: PANTOPRAZOLE 40MG TAB (PROTONIX) PO SCH (09:33)
[2019-11-01] MEDS: GABAPENTIN 300 MG CAP PO SCH (09:33)
[2019-11-01] MEDS: FLUoxetine 20 MG CAP PO SCH (09:33)
[2019-11-01] MEDS: TAMSULOSIN 0.4 MG CAP PO SCH (09:33)
[2019-11-01] MEDS: ROSUVASTATIN 10 MG TAB (CRESTOR) PO SCH (09:33)
[2019-11-01] MEDS: BACLOFEN 10 MG TAB PO SCH (09:33)
[2019-11-01] MEDS: METOPROLOL TARTRATE 100 MG TAB PO SCH (09:34)
--- NOTE | 2019-11-01 10:19 | IPN ---
DATE OF SERVICE: 11/01/2019 Mr. Aviles was seen and examined this morning during bedside rounds. He was initially admitted on 10/28/2019 for atrial fibrillation with rapid ventricular response (RVR) and was evaluated by Dr. Tse. He is currently rate controlled and continues to be in atrial fibrillation. He has no complaints this morning. He states that he slept well last night without any problems. He denies any palpitations, shortness of breath or trouble breathing. He does state that he has been walking around the room without any issues, but has not walked the halls. He has tolerated breakfast with no problem. On questioning him about his alcohol abuse, he states that he has no desire to quit and will continue to drink upon discharge. He endorses that he will try to drink less, but he will continue to drink his whiskey because he enjoys it. Telemetry was reviewed and showed that his heart rate was less than 100 and controlled. He is currently on metoprolol tartrate 100 mg twice a day and diltiazem HCl 30 mg three times a day. No other events were reported by nursing. PHYSICAL EXAMINATION: Vitals: Temperature 97.2, pulse 90, respirations 18, blood pressure 100/65, (MAP 77), pulse oximetry 93% on room air. General: This is a very pleasant 64-year-old male who does not appear in acute distress sitting in a chair appropriately answering questions. No accessory muscle use. HEENT: Atraumatic. Normocephalic. No jugular venous distention (JVD). Lungs: Clear to auscultate bilaterally. No audible wheezing, rhonchi or rales. Cardiovascular: Irregularly irregular. Currently rate controlled, but no audible murmurs, rubs or gallops. Abdomen: Soft. Nontender. Extremities: No pretibial edema or calf tenderness. Neurologic: No focal deficits. LABORATORIES: WBC 4.0, hemoglobin 13.3, hematocrit 40.1, platelets 215. Chemistries: Sodium 138, potassium 3.9, chloride 108, carbon dioxide 26, anion gap 4, BUN 18, creatinine 1.12, fasting glucose 92, calcium 8.9. CARDIAC MEDICATIONS: Metoprolol tartrate 100 mg twice a day by mouth, diltiazem 30 mg three times a day by mouth and Eliquis 5 mg twice a day by mouth. ASSESSMENT: Mr. Shay Aviles is a 64-year-old male with a pertinent past medical history of alcohol abuse, gastrointestinal bleed in 2019 secondary to NSAIDS, brain aneurysm status post coil and two stent placement, hypertension, obstructive sleep apnea, who presented to our ER for paroxysmal atrial fibrillation with RVR. Cardiology team was consulted for management for atrial fibrillation. IMPRESSION: 1. Paroxysmal atrial fibrillation with RVR. First episode was in 2013 secondary to sepsis. New onset atrial fibrillation with RVR. 2. Hypertension. 3. Obstructive sleep apnea, noncompliant. 4. History of GI bleed from gastric ulcer secondary to NSAIDS in 2019. 5. History of brain aneurysm status post coil and two stents. 6. Alcohol abuse. PLAN: Mr. Aviles was seen this morning. He looks stable and has no complaints. After reviewing his telemetry, his heart rate is controlled with a current regimen of metoprolol tartrate and diltiazem. We do recommend that he ambulate around the hernandez with assistance with nursing and if he has no symptoms and is asymptomatic he can be discharged from a cardiac standpoint. Our recommendation for discharge medications is metoprolol tartrate 100 mg twice a day as well as Cardizem 120 mg. Note, new cardiac medication is the metoprolol and the Cardizem as well as the Eliquis 5 mg twice a day by mouth. Recommend to followup with Dr. Tse this Friday as scheduled. Lastly, because of his history of his coil and stent placement, will need to reach out to [facility], the patient does see Dr. Reynoso, to confirm there are no absolute contraindications for continuing with the Eliquis. I do not believe there will be any issues, but will just need to reach out to confirm.
--- NOTE | 2019-11-02 12:33 | DSES ---
DATE OF ADMISSION: 10/28/2019 DATE OF DISCHARGE: 11/01/2019 PRIMARY CARE PROVIDER: DAYNA Marie ATTENDING PHYSICIAN: Today is Edwin Downing MD. HISTORY: This is a 64-year-old male patient who presented to see Olga in the office on 10/28/2019 who was identified to have a pulse of 180. Electrocardiogram (EKG) revealed atrial fibrillation with rapid ventricular response. He was transferred to [facility] Emergency Room for further management and monitoring. He has a strong history of alcohol abuse, which was felt to likely be playing a role in his atrial fibrillation (AFib). The patient was admitted to the hospital for new-onset AFib with rapid ventricular rate. Cardiology was consulted. Cardiac markers were obtained and negative. He was started on digoxin and amiodarone, as well as metoprolol, in the emergency department. Ultimately, his rate-controlling medications have been transitioned to metoprolol twice a day, diltiazem three times daily with the plan to transition this to once daily at discharge. Echocardiogram revealed normal left ventricular systolic function, aortic valve sclerosis with trace aortic regurgitation but no stenosis, mitral annular calcification with mildly enlarged left atrium, mild to moderate mitral regurgitation, mild to moderate tricuspid regurgitation with mild pulmonary hypertension. Subjectively, the right atrium appeared to be mildly enlarged. A small pericardial effusion was noted without evidence of cardiac tamponade. Dr. Rachel has seen the patient this morning and feels as though he is, in fact, ready to be discharged home. He has been started on Eliquis to prevent clots associated with the atrial fibrillation. The plan is for the patient to come into the office at cardiology to be started on a Holter monitor for further management and adjustment of his medications in the outpatient setting. He is currently on leave from work until Friday and will need clearance to return back to work by cardiology. His discharge diagnoses include: 1. New-onset atrial fibrillation with rapid ventricular response. 2. Hypertension. 3. Hyperlipidemia. 4. Obstructive sleep apnea (PRINCE). 5. History of gastrointestinal (GI) bleeding. 6. Anxiety. 7. Depression. 8. Alcohol abuse. 9. Essential tremor. 10. History of prostate cancer. DISCHARGE MEDICATIONS: Include: - Flomax 0.4 mg by mouth daily - apixaban 5 mg by mouth twice a day - diltiazem 120 mg daily - metoprolol 100 mg twice a day - thiamine 100 mg daily - albuterol sulfate inhaled every 6 hours as needed for shortness of breath - baclofen 10 mg twice a day - cetirizine 10 mg by mouth nightly - vitamin D3 1000 units daily - fluoxetine 20 mg daily - gabapentin 300 mg twice a day - gabapentin 600 mg by mouth nightly - Protonix 40 mg daily - rosuvastatin 10 mg daily DISCHARGE PLAN: Will be to followup with his primary care provider in 1 week. Activity should be as tolerated. Diet should be [id number]. Encouraged avoidance of alcohol. He will followup with cardiology per their recommendation but also for a Holter monitor to be placed this week.
== END 2019-11-01 12:31 | disposition home or self-care (01) | DRG 201 ==
LOC: M ED 09:52 → M ED INP 15:13 → ENRESERV 20:32 → M PCU 21:20
PROVIDERS: ADMIT Internal Medicine; ATTEND Family Medicine
DX: I48.0 Paroxysmal atrial fibrillation (principal); I31.3 Pericardial effusion (noninflammatory); I27.20 Pulmonary hypertension, unspecified; I08.3 Combined rheumatic disorders of mitral, aortic and tricuspid valves; F10.10 Alcohol abuse, uncomplicated; I10 Essential (primary) hypertension; E78.5 Hyperlipidemia, unspecified; G47.33 Obstructive sleep apnea (adult) (pediatric); F41.9 Anxiety disorder, unspecified; Z85.46 Personal history of malignant neoplasm of prostate; F32.9 Major depressive disorder, single episode, unspecified; G25.0 Essential tremor; K22.70 Barrett's esophagus without dysplasia; Z87.891 Personal history of nicotine dependence; Z91.19 Patient's noncompliance with other medical treatment and regimen; Z79.82 Long term (current) use of aspirin; Z79.899 Other long term (current) drug therapy; N40.0 Benign prostatic hyperplasia without lower urinary tract symptoms

== ENCOUNTER → 2019-11-09 | Outpatient (REF) | payer BC, MEDICARE ==
[~2019-11-09] MED LIST changes: +ALL10TAB29 PO; +CLIN1GEL19 TOP; +DILT120C78 PO; +ELIQ5TAB PO; +LOPR1TAB7 PO; +SILD100T7 PO; +THIA100TA PO; +VITAD1000T PO
[2019-11-09 16:58] LABS: HEMATOCRIT 41.2 % (42.0-52.0); HEMOGLOBIN 13.6 g/dl (13.5-17.5); MEAN CORPUSCULAR VOLUME 96.9 fl (80.0-96.0); PLATELET COUNT, AUTOMATED 276 10^3/uL (150-450); RED BLOOD COUNT 4.25 10^6/uL (4.30-6.10); WHITE BLOOD COUNT 5.4 10^3/uL (4.0-10.0)
[2019-11-09 17:06] LABS: ALBUMIN 3.9 GM/DL (3.2-5.2); BILIRUBIN,TOTAL 0.5 MG/DL (0.2-1.0); CALCIUM LEVEL 9.2 MG/DL (8.8-10.2); CHOLESTEROL RISK RATIO 2.942 (<5); CREATININE FOR GFR 1.32 MG/DL (0.70-1.30); GLOMERULAR FILTRATION RATE 57.9 (>49); POTASSIUM SERUM 4.4 MEQ/L (3.5-5.1); PROSTATIC SPECIFIC AG MONITOR 1.02 NG/ML (< 4.00); TOTAL PROTEIN 6.9 GM/DL (6.4-8.2)
== END ==
LOC: M SFHCADAM 14:33
PROVIDERS: ATTEND Physician Assistant
DX: I48.91 Unspecified atrial fibrillation (principal); F10.10 Alcohol abuse, uncomplicated; K22.70 Barrett's esophagus without dysplasia; Z87.19 Personal history of other diseases of the digestive system; E78.2 Mixed hyperlipidemia; I10 Essential (primary) hypertension; C61 Malignant neoplasm of prostate

== ENCOUNTER → 2019-12-10 | Outpatient (CLI) | payer BC | LOC: M OUTALCOH 07:45 | PROVIDERS: ATTEND Psychiatry & Neurology Addiction Medicine | DX: F10.20 Alcohol dependence, uncomplicated (principal) ==

== ENCOUNTER 2019-12-22 13:53 | Outpatient (RCR) | payer BC | END 2019-12-23 | LOC: M OUTALCOH 13:53 | PROVIDERS: ATTEND Psychiatry & Neurology Addiction Medicine | DX: F10.20 Alcohol dependence, uncomplicated (principal) ==

== ENCOUNTER 2020-01-19 14:15 | Outpatient (RCR) | payer BC ==
[~2020-01-19 14:15] MED LIST changes: -TIZA2TAB4 PO; +TIZA2TAB6 PO
== END 2020-01-23 ==
LOC: M OUTALCOH 14:15
PROVIDERS: ATTEND Psychiatry & Neurology Addiction Medicine
DX: F10.20 Alcohol dependence, uncomplicated (principal)

== ENCOUNTER → 2020-02-10 | Outpatient (REF) | payer BC ==
[2020-02-10 12:46] LABS: HEMATOCRIT 43.5 % (42.0-52.0); HEMOGLOBIN 14.1 g/dl (13.5-17.5); MEAN CORPUSCULAR HEMOGLOBIN 29.7 pg (27.0-33.0); MEAN CORPUSCULAR HGB CONC 32.4 g/dl (32.0-36.5); MEAN CORPUSCULAR VOLUME 91.6 fl (80.0-96.0); PLATELET COUNT, AUTOMATED 259 10^3/uL (150-450); RED BLOOD COUNT 4.75 10^6/uL (4.30-6.10); WHITE BLOOD COUNT 9.6 10^3/uL (4.0-10.0)
[2020-02-10 13:07] LABS: ALBUMIN 3.9 GM/DL (3.2-5.2); ALT/SGPT 44 U/L (12-78); BILIRUBIN,TOTAL 0.4 MG/DL (0.2-1.0); BLOOD UREA NITROGEN 21 MG/DL (7-18); CALCIUM LEVEL 9.2 MG/DL (8.8-10.2); CARBON DIOXIDE LEVEL 27 MEQ/L (21-32); CHLORIDE LEVEL 107 MEQ/L (98-107); CREATININE FOR GFR 1.23 MG/DL (0.70-1.30); GLOMERULAR FILTRATION RATE > 60.0 (>49); GLUCOSE, FASTING 111 MG/DL (70-100); POTASSIUM SERUM 4.3 MEQ/L (3.5-5.1); SODIUM LEVEL 141 MEQ/L (136-145)
== END ==
LOC: M SFHCADAM 10:17
PROVIDERS: ATTEND Physician Assistant
DX: I10 Essential (primary) hypertension (principal); E78.2 Mixed hyperlipidemia; F10.10 Alcohol abuse, uncomplicated

== ENCOUNTER 2020-02-18 09:30 | Outpatient (RCR) | payer BC | END 2020-02-22 | LOC: M OUTALCOH 09:30 | PROVIDERS: ATTEND Psychiatry & Neurology Addiction Medicine | DX: F10.20 Alcohol dependence, uncomplicated (principal) ==

== ENCOUNTER 2020-03-03 07:57 | Outpatient (RCR) | payer BC ==
[~2020-03-03 07:57] MED LIST changes: -ALL10TAB29 PO; -ASPI81TA85 PO; +ASPI81TA86 PO; +CETI-24 PO; +D31000TA2 PO; -VITAD1000T PO
== END 2020-03-24 ==
LOC: M OUTALCOH 07:57
PROVIDERS: ATTEND Psychiatry & Neurology Addiction Medicine
DX: F10.20 Alcohol dependence, uncomplicated (principal)

== ENCOUNTER → 2020-03-20 | Outpatient (REF) | payer BC | LOC: M WUC 11:31 | PROVIDERS: ATTEND Urology | DX: C61 Malignant neoplasm of prostate (principal) ==

== ENCOUNTER 2020-05-14 09:10 | Emergency (ER) | payer BC ==
[~2020-05-14] VITALS: Ht 177.8 cm; Wt 90.8 kg
[2020-05-14] MEDS ORDERED: NS 1,000 ML IV ONE (09:45)
[2020-05-14] MEDS ORDERED: THIAMINE 200MG/2ML VIAL (J3411 PER 100MG) IM ONE (09:45)
[2020-05-14] MEDS ORDERED: LORazepam 2 MG TAB PO PRN (09:45)
[2020-05-14 10:12] LABS: BASO % 0.9 % (0.0-1.0); EOS % 0.9 % (0.0-3.0); HEMATOCRIT 42.2 % (42.0-52.0); HEMOGLOBIN 14.3 g/dl (13.5-17.5); LYMPH # 0.7 10^3/uL (1.5-5.0); LYMPH % 15.2 % (24.0-44.0); MEAN CORPUSCULAR HEMOGLOBIN 31.3 pg (27.0-33.0); MEAN CORPUSCULAR HGB CONC 33.9 g/dl (32.0-36.5); MEAN CORPUSCULAR VOLUME 92.3 fl (80.0-96.0); MONO # 0.8 10^3/uL (0.0-0.8); MONO % 17.7 % (0.0-5.0); NEUTROPHILS # 2.9 10^3/uL (1.5-8.5); NEUTROPHILS % 64.6 % (36.0-66.0); PLATELET COUNT, AUTOMATED 186 10^3/uL (150-450); RED BLOOD COUNT 4.57 10^6/uL (4.30-6.10); VENOUS BASE EXCESS -0.8 (-2.0-2.0); VENOUS HCO3 21.7 MEQ/L (23.0-27.0); VENOUS O2 SATURATION 98.4 % (60.0-80.0); VENOUS PARTIAL PRESSURE CO2 30.5 mmHg (38.0-50.0); VENOUS PARTIAL PRESSURE O2 108.8 mmHg (30.0-50.0); VENOUS PH 7.471 UNITS (7.330-7.430); VENOUS STANDARD HCO3 23.8 MEQ/L; VENOUS TOTAL CO2 22.7 MEQ/L (24.0-28.0); WHITE BLOOD COUNT 4.4 10^3/uL (4.0-10.0)
[2020-05-14 10:24] LABS: INR 1.2; PROTHROMBIN TIME 15.5 SECONDS (12.5-14.3)
--- NOTE | 2020-05-14 10:27 | REPVR ---
PROCEDURE INFORMATION: Exam: XR Chest, 1 View Exam date and time: 05/14/2020 10:06 AM Age: 65 years old Clinical indication: Shortness of breath TECHNIQUE: Imaging protocol: XR of the chest Views: 1 view. COMPARISON: 1. CT - Chest without contrast 08/24/2014 8:58:41 AM 2. CR - Chest, 1 view 06/06/2019 7:40:19 AM 3. TN - PORTABLE CHEST X-RAY 09/20/2019 8:27:31 AM 4. TN - PORTABLE CHEST X-RAY 10/28/2019 10:47 AM FINDINGS: Tubes, catheters and devices: ECG leads/contacts overlie and partially obscure the anatomy. Lungs: No pulmonary consolidation or edema. Pleural space: No evident pleural effusion. No evident pneumothorax. Heart/Mediastinum: The cardiomediastinal silhouette is within normal limits for size and contour. Bones/joints: No acute osseous abnormality. Soft tissues: Nipple shadows noted. IMPRESSION: No radiographic evidence of acute cardiopulmonary disease. Electronically signed by: Stefan Hough On 05/14/2020 10:27:18 AM
[2020-05-14 10:34] LABS: AMPHETAMINES LEVEL URINE NEGATIVE (NEGATIVE); BARBITURATES URINE NEGATIVE (NEGATIVE); BENZODIAZEPINES URINE NEGATIVE (NEGATIVE); CANNABINOIDS URINE NEGATIVE (NEGATIVE); COCAINE METABOLITE URINE NEGATIVE (NEGATIVE); METHADONE URINE NEGATIVE (NEGATIVE); OPIATES URINE NEGATIVE (NEGATIVE); PHENCYCLIDINE URINE NEGATIVE (NEGATIVE)
[2020-05-14 10:44] LABS: ACETAMINOPHEN LEVEL < 2.0 UG/ML (10.0-30.0); ALBUMIN 3.9 GM/DL (3.2-5.2); ALT/SGPT 47 U/L (12-78); BILIRUBIN,DIRECT 0.2 MG/DL (0.0-0.2); BILIRUBIN,TOTAL 0.6 MG/DL (0.2-1.0); CK-MB VALUE MASS 2.2 NG/ML (<3.6); CPK CREATINE PHOSPHOKINASE 173 U/L (39-308); ETHYL ALCOHOL (ETHANOL) < 0.003 % (0.000-0.010); LIPASE 182 U/L (73-393); MB/CK RELATIVE INDEX 1.27 (< OR =4); SALICYLATE LEVEL < 1.7 MG/DL (5.0-30.0); TOTAL PROTEIN 7.3 GM/DL (6.4-8.2); TROPONIN I < 0.02 NG/ML (< 0.10)
[2020-05-14] MEDS ORDERED: MAG SULF 1GM/100ML (MAG RUN) 1 GM in IV 1 EA IV ONE (10:45)
[2020-05-14] MEDS ORDERED: OXAZEPAM 15 MG CAP PO ONE (11:15)
[2020-05-14] MEDS ORDERED: ISOVUE-370 76% 100ML VIAL As Ordered ONE (11:52)
--- NOTE | 2020-05-14 12:45 | REPVR ---
PROCEDURE INFORMATION: Exam: CT Angiography Chest With Contrast Exam date and time: 05/14/2020 12:08 PM Age: 65 years old Clinical indication: Shortness of breath TECHNIQUE: Imaging protocol: Computed tomographic angiography of the chest with intravenous contrast. Coronal and sagittal reformats were created and reviewed. 3D rendering (Not supervised by radiologist): MIP and/or 3D reconstructed images were created by the technologist. Radiation optimization: All CT scans at this facility use at least one of these dose optimization techniques: automated exposure control; mA and/or kV adjustment per patient size (includes targeted exams where dose is matched to clinical indication); or iterative reconstruction. Contrast material: ISOVUE 370; Contrast volume: 75 ml; Contrast route: INTRAVENOUS (IV); COMPARISON: 1. SR CT ANGIO CHEST 06/06/2019 8:[address] Chest without contrast 08/24/2014 8:58:41 AM FINDINGS: Pulmonary arteries: No pulmonary arterial filling defect of an acute or chronic pulmonary arterial embolism. Aorta: Mild aortic atherosclerosis. No thoracic aortic aneurysm. Other arteries: Splenic artery 1.1 cm fusiform aneurysm is not significantly changed compared to 08/24/2014. Thyroid: Unremarkable as visualized. Lungs: Small secretions within the trachea. Bilateral bronchial wall thickening. Mild bilateral upper lung predominant centrilobular emphysema. No consolidation. Mild bilateral dependent ground-glass airspace opacities amongst crowded bronchovasculature consistent with mild atelectasis. Pleural space: No pleural effusion, mass or calcification. No pneumothorax. Heart: Coronary arterial atherosclerotic calcifications are present. Mitral annular calcifications are present. No pericardial effusion. Mild cardiomegaly with left atrial dilation. Mediastinal space: The esophagus is unremarkable. No mediastinal mass. Lymph nodes: No enlarged lymph nodes. Liver: Multiple circumscribed hypoattenuating hepatic lesions are redemonstrated, consistent with cysts. Bones/joints: Left 10th and 11th rib old fractures. Soft tissues: Unremarkable. IMPRESSION: 1. Negative for pulmonary arterial embolism. 2. Pulmonary emphysema. Findings consistent with bronchitis. 3. Mild cardiomegaly with left atrial dilation. 4. Atherosclerosis. Coronary artery disease. 5. Please see the body of the report for other findings as described. Electronically signed by: Stefan Hough On 05/14/2020 12:45:26 PM
[2020-05-14 12:54] VITALS: BP 114/74
--- NOTE | 2020-05-14 13:22 | ECGEPIP ---
[facility] - ED Test Date: 2020-05-14 Pat Name: MICHAEL IRVING Department: Room: - Gender: Male [employer]: : 1955 Requested By: Rosmery Han Order Number: [id number] Reading MD: Rosmery Han Measurements Intervals [place] Rate: 62 P: 33 CT: 171 QRS: 59 QRSD: 102 T: 45 QT: 438 QTc: 445 Interpretive Statements SINUS RHYTHM POSSIBLE RIGHT VENTRICULAR CONDUCTION DELAY PRIOR 10/28/19 ATRIAL FIBRILLATION Electronically Signed on 05-14-2020 13:21:58 EDT by Rosmery Han
--- NOTE | 2020-05-14 15:11 | ED PDOC ---
Post-Departure Follow-Up radiology report faxed to Olga Downing Sarah MD May 14, 2020 15:11
[2020-05-14] MEDS ORDERED: THIAMINE 100 MG TAB PO SCH (21:00)
[2020-05-15] MEDS ORDERED: FOLIC ACID 1 MG TAB PO SCH (09:00)
[2020-05-15] MEDS ORDERED: MULTIVITAMINS/MINERALS THERAP 1 TAB PO SCH (09:00)
== END 2020-05-14 13:00 | disposition home or self-care (01) ==
LOC: M ED 09:10
DX: F10.239 Alcohol dependence with withdrawal, unspecified (principal); J43.0 Unilateral pulmonary emphysema [MacLeod's syndrome]; I48.91 Unspecified atrial fibrillation; I25.10 Atherosclerotic heart disease of native coronary artery without angina pectoris; I51.7 Cardiomegaly; G25.0 Essential tremor; Z79.01 Long term (current) use of anticoagulants; Z79.899 Other long term (current) drug therapy
CPT/HCPCS: 36415; 71045; 71275; 80047; 80076; 80307; 82550; 82553; 82803; 83690; 83735; 84484; 85025; 85610; 86850; 86900; 86901; 93005; 93041; 96361; 96365; 96372; 99285; G0480; J3411; J3475; Q9967

== ENCOUNTER → 2020-06-22 | Outpatient (REF) | payer BC ==
[2020-06-22 16:54] LABS: HEMATOCRIT 43.6 % (42.0-52.0); HEMOGLOBIN 14.2 g/dl (13.5-17.5); MEAN CORPUSCULAR HEMOGLOBIN 30.3 pg (27.0-33.0); MEAN CORPUSCULAR HGB CONC 32.6 g/dl (32.0-36.5); PLATELET COUNT, AUTOMATED 238 10^3/uL (150-450); RED BLOOD COUNT 4.69 10^6/uL (4.30-6.10); WHITE BLOOD COUNT 4.8 10^3/uL (4.0-10.0)
[2020-06-22 17:02] LABS: ALBUMIN 3.8 GM/DL (3.2-5.2); ALT/SGPT 35 U/L (12-78); BILIRUBIN,TOTAL 0.4 MG/DL (0.2-1.0); BLOOD UREA NITROGEN 17 MG/DL (7-18); CALCIUM LEVEL 9.2 MG/DL (8.8-10.2); CARBON DIOXIDE LEVEL 29 MEQ/L (21-32); CHLORIDE LEVEL 105 MEQ/L (98-107); GLUCOSE, FASTING 95 MG/DL (70-100); POTASSIUM SERUM 4.3 MEQ/L (3.5-5.1); SODIUM LEVEL 140 MEQ/L (136-145); TOTAL PROTEIN 6.9 GM/DL (6.4-8.2)
[2020-06-22 17:10] LABS: FOLATE > 24.0 NG/ML; VITAMIN B12 LEVEL 1416 PG/ML
[2020-06-22 17:32] LABS: HEMOGLOBIN A1c 5.7 %
== END ==
LOC: M SFHCADAM 13:56
PROVIDERS: ATTEND Physician Assistant
DX: F10.11 Alcohol abuse, in remission (principal); K22.70 Barrett's esophagus without dysplasia; I48.91 Unspecified atrial fibrillation; R73.09 Other abnormal glucose

== ENCOUNTER → 2021-02-11 | Outpatient (CLI) | payer BC ==
[~2021-02-11] MED LIST changes: +GABA-282 PO; -GABA-843 PO; +TIZA1TAB12 PO; -TIZA2TAB6 PO
--- NOTE | 2021-02-11 13:49 | REPVR ---
PROCEDURE INFORMATION: Exam: MR Lumbar Spine Without Contrast Exam date and time: 02/11/2021 11:21 AM Age: 65 years old Clinical indication: Other: Radiculopathy TECHNIQUE: Imaging protocol: Multiplanar magnetic resonance images of the lumbar spine without intravenous contrast. COMPARISON: MRI-Spine, L.S. without con 06/09/2018 3:33 PM FINDINGS: Vertebrae: There is preservation of vertebral body height. There is marked discogenic sclerosis at L2-L3 which is slightly progressed. Spinal cord: Normal signal. No cord compression. The conus extends to L1. L1-L2: No significant disc disease. There are mild facet joint degenerative changes. No significant spinal canal stenosis. No neural foraminal stenosis. L2-L3: There is a stable diffuse bulge slightly more prominent laterally than centrally without mass effect on the root. There are mild facet joint degenerative changes. No significant spinal canal stenosis. No neural foraminal stenosis. L3-L4: No significant disc disease. There are mild facet joint degenerative changes and ligamentum flavum hypertrophy. No significant spinal canal stenosis. No neural foraminal stenosis. L4-L5: No significant disc disease. There are mild facet joint degenerative changes and ligamentum flavum hypertrophy. No significant spinal canal stenosis. No neural foraminal stenosis. L5-S1: There is a bulge which flattens the sac and extends into the right neural foramina with not reach the right L5 root. No significant spinal canal stenosis. No neural foraminal stenosis. Soft tissues: Unremarkable. IMPRESSION: 1. Again seen is focal degenerative disc disease at L2-L3 with near complete loss of disc space height and adjacent discogenic sclerosis. 2. There is no lumbar disc herniation or central stenosis. Electronically signed by: Stefan Adam On 02/11/2021 13:49:17 PM
== END ==
LOC: M RAD 10:06
PROVIDERS: ATTEND Nurse Practitioner Family
DX: M54.16 Radiculopathy, lumbar region (principal)

== ENCOUNTER 2021-05-01 08:59 | Emergency (ER) | payer BC ==
[~2021-05-01] VITALS: Ht 177.8 cm; Wt 89.3 kg
[~2021-05-01 08:59] MED LIST changes: -DOXY100C PO; +DOXY100C3 PO
[2021-05-01] MEDS ORDERED: METO1TAB87 (09:23)
[2021-05-01 10:41] LABS: BASO # 0.1 10^3/uL (0.0-0.2); EOS # 0.1 10^3/uL (0.0-0.5); EOS % 2.7 % (0.0-3.0); HEMATOCRIT 48.6 % (42.0-52.0); HEMOGLOBIN 15.8 g/dl (13.5-17.5); LYMPH # 1.4 10^3/uL (1.5-5.0); LYMPH % 26.3 % (24.0-44.0); MEAN CORPUSCULAR HEMOGLOBIN 29.5 pg (27.0-33.0); MEAN CORPUSCULAR HGB CONC 32.5 g/dl (32.0-36.5); MEAN CORPUSCULAR VOLUME 90.8 fl (80.0-96.0); MONO # 0.7 10^3/uL (0.0-0.8); MONO % 13.2 % (2.0-8.0); NEUTROPHILS % 56.4 % (36.0-66.0); PLATELET COUNT, AUTOMATED 216 10^3/uL (150-450); RED BLOOD COUNT 5.35 10^6/uL (4.30-6.10); WHITE BLOOD COUNT 5.2 10^3/uL (4.0-10.0)
--- NOTE | 2021-05-01 11:13 | REP ---
INDICATION: CHEST PAIN. COMPARISON: 05/14/2020. TECHNIQUE: Single portable AP view of the chest was performed. FINDINGS: There is no acute infiltrate or pulmonary edema. Lungs are clear. The heart is not significantly enlarged. The mediastinal silhouette is unremarkable. The visualized osseous structures are intact. IMPRESSION: No acute pulmonary disease. <Electronically signed by Ben Henson > 05/01/21 1118
[2021-05-01 11:17] LABS: ALBUMIN 3.6 GM/DL (3.2-5.2); ALT/SGPT 30 U/L (12-78); BILIRUBIN,DIRECT < 0.1 MG/DL (0.0-0.2); BILIRUBIN,TOTAL 0.6 MG/DL (0.2-1.0); BLOOD UREA NITROGEN 15 MG/DL (7-18); CALCIUM LEVEL 9.2 MG/DL (8.8-10.2); CARBON DIOXIDE LEVEL 27 MEQ/L (21-32); CHLORIDE LEVEL 110 MEQ/L (98-107); CK-MB VALUE MASS 1.5 NG/ML (<3.6); CPK CREATINE PHOSPHOKINASE 123 U/L (39-308); CREATININE FOR GFR 0.93 MG/DL (0.70-1.30); FREE T4 1.04 NG/DL (0.76-1.46); GLOMERULAR FILTRATION RATE > 60.0 (>49); GLUCOSE, FASTING 94 MG/DL (70-100); MB/CK RELATIVE INDEX 1.21 (< OR =4); NT-PRO BNP 61 PG/ML (<125); POTASSIUM SERUM 5.1 MEQ/L (3.5-5.1); SODIUM LEVEL 139 MEQ/L (136-145); TOTAL PROTEIN 6.8 GM/DL (6.4-8.2); TROPONIN I < 0.02 NG/ML (< 0.10)
[2021-05-01 13:30] VITALS: BP 135/84
--- NOTE | 2021-05-01 17:56 | ECGEPIP ---
[facility] - ED Test Date: 2021-05-01 Pat Name: MICHAEL IRVING Department: Room: - Gender: Male [employer]: FF : 1955 Requested By: RUTH Vizcarra Order Number: [id number] Reading MD: Rosmery Han Measurements Intervals [place] Rate: 57 P: 53 MI: 174 QRS: 49 QRSD: 98 T: 42 QT: 422 QTc: 410 Interpretive Statements Sinus bradycardia Cannot rule out Anterior infarct , age undetermined similar 05/14/20 Electronically Signed on 05-01-2021 17:55:48 EDT by Rosmery Han
== END 2021-05-01 14:04 | disposition home or self-care (01) ==
LOC: M ED 08:59
DX: J06.9 Acute upper respiratory infection, unspecified (principal); I48.91 Unspecified atrial fibrillation; F10.20 Alcohol dependence, uncomplicated; G47.33 Obstructive sleep apnea (adult) (pediatric); Z87.891 Personal history of nicotine dependence; Z87.19 Personal history of other diseases of the digestive system
CPT/HCPCS: 36415; 71045; 80048; 80076; 82550; 82553; 83880; 84439; 84443; 84484; 85025; 87880; 93005; 93041; 94760; 99285; U0003

== ENCOUNTER → 2021-05-08 | Outpatient (REF) | payer BC ==
[~2021-05-08] MED LIST changes: +METO1TAB87
[2021-05-08 13:00] LABS: HEMATOCRIT 46.1 % (42.0-52.0); HEMOGLOBIN 15.3 g/dl (13.5-17.5); MEAN CORPUSCULAR HEMOGLOBIN 29.9 pg (27.0-33.0); MEAN CORPUSCULAR HGB CONC 33.2 g/dl (32.0-36.5); MEAN CORPUSCULAR VOLUME 90.2 fl (80.0-96.0); PLATELET COUNT, AUTOMATED 237 10^3/uL (150-450); RED BLOOD COUNT 5.11 10^6/uL (4.30-6.10); WHITE BLOOD COUNT 5.2 10^3/uL (4.0-10.0)
[2021-05-08 13:38] LABS: ALT/SGPT 30 U/L (12-78); BILIRUBIN,TOTAL 0.5 MG/DL (0.2-1.0); BLOOD UREA NITROGEN 13 MG/DL (7-18); CALCIUM LEVEL 9.6 MG/DL (8.8-10.2); CARBON DIOXIDE LEVEL 25 MEQ/L (21-32); CHLORIDE LEVEL 106 MEQ/L (98-107); CHOLESTEROL LEVEL 193 MG/DL (<200); CHOLESTEROL RISK RATIO 5.848 (<5); CREATININE FOR GFR 0.96 MG/DL (0.70-1.30); GLOMERULAR FILTRATION RATE > 60.0 (>49); GLUCOSE, FASTING 91 MG/DL (70-100); HDL CHOLESTEROL 33 MG/DL (>40); LDL CHOLESTEROL 96 MG/DL (<100); NON-HDL-C 160 MG/DL; POTASSIUM SERUM 4.3 MEQ/L (3.5-5.1); SODIUM LEVEL 140 MEQ/L (136-145); TRIGLYCERIDES LEVEL 321 MG/DL (<150)
[2021-05-08 13:39] LABS: ALBUMIN 3.8 GM/DL (3.2-5.2); FREE T4 1.27 NG/DL (0.76-1.46); TOTAL PROTEIN 6.6 GM/DL (6.4-8.2)
[2021-05-09 15:07] LABS: Lyme Disease IgG/IgM Antibodie <0.91 ISR (0.00-0.90); Lyme Disease IgM Ab Quantitati <0.80 index (0.00-0.79)
== END ==
LOC: M SFHCADAM 09:29
PROVIDERS: ATTEND Physician Assistant
DX: I48.91 Unspecified atrial fibrillation (principal); F10.11 Alcohol abuse, in remission; I10 Essential (primary) hypertension; E78.2 Mixed hyperlipidemia; M25.50 Pain in unspecified joint; Z85.46 Personal history of malignant neoplasm of prostate
CPT/HCPCS: 80053; 80061; 84439; 84443; 85027; 86617; G0103

== ENCOUNTER → 2021-05-10 | Outpatient (REF) | payer BC ==
[2021-05-10 13:38] LABS: APPEARANCE, URINE CLEAR (CLEAR); BACTERIA, URINE AUTO NEGATIVE (NEGATIVE); BILIRUBIN, URINE AUTO NEGATIVE (NEGATIVE); BLOOD, URINE BLOOD NEGATIVE (NEGATIVE); COLOR, URINE STRAW (YELLOW); GLUCOSE, URINE (UA) AUTO NEGATIVE (NEGATIVE); KETONE, URINE AUTO NEGATIVE (NEGATIVE); LEUKOCYTE ESTERASE, URINE AUTO NEGATIVE (NEGATIVE); MUCUS, URINE SMALL (NEGATIVE); NITRITE, URINE AUTO NEGATIVE (NEGATIVE); PROTEIN, URINE AUTO NEGATIVE (NEGATIVE); RBC, URINE AUTO 0 /HPF (0-3); SPECIFIC GRAVITY URINE AUTO 1.003 (1.002-1.035); SQUAMOUS EPITHELIAL CELL UR AU 0 /HPF (0-6); UROBILINOGEN, URINE AUTO 0.2 mg/dL (0.0-2.0); WBC, URINE AUTO 0 /HPF (0-3)
== END ==
LOC: M SMT 12:53
PROVIDERS: ATTEND Nurse Practitioner Women's Health
DX: N40.1 Benign prostatic hyperplasia with lower urinary tract symptoms (principal)

== ENCOUNTER → 2021-07-09 | Outpatient (CLI) | payer BC ==
--- NOTE | 2021-07-09 08:35 | REPVR ---
PROCEDURE INFORMATION: Exam: MR Cervical Spine Without Contrast Exam date and time: 07/09/2021 8:20 AM Age: 66 years old Clinical indication: Radiculopathy; Cervical region; Additional info: Radiculopthy TECHNIQUE: Imaging protocol: Multiplanar magnetic resonance images of the cervical spine without contrast. COMPARISON: None available. FINDINGS: Vertebrae: There is no fracture or listhesis. Spinal cord: Normal signal. No cord compression. C2-C3: There is a shallow disc osteophyte complex. There is mild facet hypertrophy. The spinal canal and neural foramina are patent. C3-C4: There is a diffuse disc osteophyte complex. There is severe right and moderate left facet hypertrophy. There is severe right and mild left neural foraminal narrowing. C4-C5: There is a diffuse disc osteophyte complex. There is severe right and moderate left facet hypertrophy. There is mild right neural foraminal narrowing. C5-C6: There is a diffuse disc osteophyte complex. There is moderate facet hypertrophy. There is moderate to severe right and severe left neural foraminal narrowing. C6-C7: No significant disc disease. No significant spinal stenosis. C7-T1: No significant disc disease. No significant spinal stenosis. Soft tissues: Unremarkable. Vertebral arteries: Expected flow voids in the vertebral arteries. IMPRESSION: Degenerative disc disease and spondylosis. At C5/6, changes contribute to moderate to severe right and severe left neural foraminal narrowing. Electronically signed by: Divya Flores On 07/09/2021 08:34:58 AM
== END ==
LOC: M RAD 07:21
PROVIDERS: ATTEND Nurse Practitioner Family
DX: M50.30 Other cervical disc degeneration, unspecified cervical region (principal); M54.12 Radiculopathy, cervical region; M47.812 Spondylosis without myelopathy or radiculopathy, cervical region; M48.02 Spinal stenosis, cervical region

== ENCOUNTER → 2022-09-02 | Outpatient (REF) | payer BC ==
[~2022-09-02] MED LIST changes: -D31000TA2 PO; +VITA100093 PO
== END ==
LOC: M SFHCADAM 13:42
PROVIDERS: ATTEND Urology
DX: C61 Malignant neoplasm of prostate (principal)

== ENCOUNTER → 2022-11-28 | Outpatient (REF) | payer BC ==
[2022-11-28 14:46] LABS: ALKALINE PHOSPHATASE 85 U/L (46-116); ALT/SGPT 32 U/L (7.0-40); AST/SGOT 28 U/L (<34); BILIRUBIN,TOTAL 0.6 MG/DL (0.3-1.2); BLOOD UREA NITROGEN 14 MG/DL (9-23); CARBON DIOXIDE LEVEL 26 MMOL/L (20-31); CHLORIDE LEVEL 103 MMOL/L (98-107); CHOLESTEROL LEVEL 241 MG/DL (<200); CHOLESTEROL RISK RATIO 4.29 (<5); CREATININE FOR GFR 0.93 MG/DL (0.70-1.30); GLOMERULAR FILTRATION RATE > 60.0 (>49); GLUCOSE, FASTING 101 MG/DL (74-106); HDL CHOLESTEROL 56.1 MG/DL (>40); LDL CHOLESTEROL 139.3 MG/DL (<100); NON-HDL-C 184.9 MG/DL; POTASSIUM SERUM 4.5 MMOL/L (3.5-5.1); SODIUM LEVEL 136 MMOL/L (136-145); TOTAL PROTEIN 6.5 G/DL (5.7-8.2); TRIGLYCERIDES LEVEL 228 MG/DL (<150)
[2022-11-28 14:48] LABS: FREE T4 1.22 NG/DL (0.89-1.76); HEMATOCRIT 47.2 % (42.0-52.0); HEMOGLOBIN 15.5 g/dl (13.5-17.5); MEAN CORPUSCULAR HGB CONC 32.8 g/dl (32.0-36.5); MEAN CORPUSCULAR VOLUME 94.4 fl (80.0-96.0); PLATELET COUNT, AUTOMATED 215 10^3/uL (150-450); THYROID STIMULATING HORMONE 2.597 uIU/ML (0.55-4.78); WHITE BLOOD COUNT 4.8 10^3/uL (4.0-10.0)
== END ==
LOC: M SFHCADAM 08:40
PROVIDERS: ATTEND Physician Assistant
DX: H04.201 Unspecified epiphora, right side (principal); F41.9 Anxiety disorder, unspecified; E78.2 Mixed hyperlipidemia; I48.91 Unspecified atrial fibrillation

== ENCOUNTER → 2022-12-04 | Outpatient (REF) | payer BC | LOC: M SFHCADAM 09:47 | PROVIDERS: ATTEND Physician Assistant | DX: Z53.9 Procedure and treatment not carried out, unspecified reason (principal) ==

== ENCOUNTER 2022-12-20 10:26 | Inpatient (IN) | payer BC ==
[~2022-12-20] VITALS: Ht 177.8 cm; Wt 88.3 kg
[~2022-12-20 10:26] MED LIST changes: -METO1TAB87; +METO1TAB87 PO
[2022-12-20] MEDS: METOPROLOL 5 MG/5 ML VIAL IV SCH ×3 (11:01→11:21)
[2022-12-20] MEDS ORDERED: NS 500 ML IV ONE ×2 (11:05→12:05)
[2022-12-20 11:17] LABS: BASO # 0.1 10^3/uL (0.0-0.2); BASO % 0.7 % (0.0-1.0); EOS # 0.1 10^3/uL (0.0-0.5); EOS % 1.3 % (0.0-3.0); HEMATOCRIT 48.8 % (42.0-52.0); HEMOGLOBIN 16.7 g/dl (13.5-17.5); LYMPH # 1.5 10^3/uL (1.5-5.0); LYMPH % 21.6 % (24.0-44.0); MEAN CORPUSCULAR HEMOGLOBIN 31.3 pg (27.0-33.0); MEAN CORPUSCULAR HGB CONC 34.2 g/dl (32.0-36.5); MEAN CORPUSCULAR VOLUME 91.4 fl (80.0-96.0); MONO # 0.9 10^3/uL (0.0-0.8); MONO % 12.3 % (2.0-8.0); NEUTROPHILS # 4.5 10^3/uL (1.5-8.5); NEUTROPHILS % 63.7 % (36.0-66.0); PLATELET COUNT, AUTOMATED 295 10^3/uL (150-450); RED BLOOD COUNT 5.34 10^6/uL (4.30-6.10)
[2022-12-20 11:24] LABS: INR 0.98; PROTHROMBIN TIME 13.2 SECONDS (12.5-14.5)
[2022-12-20 11:25] LABS: PARTIAL THROMBOPLASTIN TIME 26.5 SECONDS (24.8-34.2)
[2022-12-20] MEDS ORDERED: DIGOXIN INJ 0.5 MG/2 ML AMP IV STA ×2 (11:26→12:44)
[2022-12-20 11:48] LABS: ALBUMIN 3.9 G/DL (3.2-5.2); ALKALINE PHOSPHATASE 78 U/L (46-116); ALT/SGPT 30 U/L (7.0-40); AST/SGOT 37 U/L (<34); BILIRUBIN,DIRECT 0.3 MG/DL (<0.4); BILIRUBIN,TOTAL 0.8 MG/DL (0.3-1.2); BLOOD UREA NITROGEN 24 MG/DL (9-23); CALCIUM LEVEL 9.3 MG/DL (8.3-10.6); CARBON DIOXIDE LEVEL 22 MMOL/L (20-31); CHLORIDE LEVEL 106 MMOL/L (98-107); CREATININE FOR GFR 1.14 MG/DL (0.70-1.30); GLOMERULAR FILTRATION RATE > 60.0 (>49); GLUCOSE, FASTING 102 MG/DL (74-106); POTASSIUM SERUM 4.9 MMOL/L (3.5-5.1); SODIUM LEVEL 140 MMOL/L (136-145); TOTAL PROTEIN 6.8 G/DL (5.7-8.2)
[2022-12-20 11:51] LABS: THYROID STIMULATING HORMONE 1.258 uIU/ML (0.55-4.78)
[2022-12-20] MEDS ORDERED: NS 1,000 ML IV ONE (12:20)
[2022-12-20] MEDS ORDERED: METOPROLOL TART 25 MG TABLET PO ONE (13:05)
[2022-12-20] MEDS ORDERED: FLUO20CA22 PO (15:03)
[2022-12-20] MEDS ORDERED: CLAR1TAB13 PO (15:03)
[2022-12-20] MEDS ORDERED: METR0.7534 TOP (15:03)
[2022-12-20] MEDS ORDERED: ATOR1TAB21 PO (15:03)
[2022-12-20] MEDS ORDERED: ASPI81TA26 PO (15:03)
[2022-12-20] MEDS ORDERED: DOXY100C3 PO (15:03)
[2022-12-20] MEDS ORDERED: PANT40TA29 PO (15:03)
[2022-12-20] MEDS ORDERED: SILD100T7 PO (15:03)
[2022-12-20] MEDS ORDERED: HOME MED LIST COMPLETE! XX SCH (15:05)
[2022-12-20] MEDS ORDERED: LORATADINE 10 MG TAB PO PRN (15:25)
[2022-12-20 16:21] LABS: MAGNESIUM LEVEL 1.7 MG/DL (1.8-2.4)
[2022-12-20] MEDS ORDERED: AMIODARONE HCL 150 MG in IV 1 EA IV ONE (17:00)
[2022-12-20] MEDS ORDERED: APIXABAN 5 MG TAB (ELIQUIS) PO ONE (17:00)
[2022-12-20 17:42] VITALS: BP 140/80
[2022-12-20] MEDS: MAG SULF 1GM/100ML (MAG RUN) 1 GM in IV 1 EA IV SCH ×2 (18:31→19:57)
[2022-12-20] MEDS: DIGOXIN INJ 0.5 MG/2 ML AMP IV SCH (18:32)
[2022-12-20 19:54] VITALS: BP 118/75
[2022-12-20] MEDS: DOXYCYCLINE HYCLATE 100MG TABLET PO SCH (20:55)
[2022-12-20] MEDS: PANTOPRAZOLE 40MG TAB (PROTONIX) PO SCH (20:55)
[2022-12-20] MEDS: METOPROLOL TART 12.5 MG PER 1/2 TAB PO SCH (20:55)
[2022-12-21] VITALS (9 sets, daily range): BP systolic 111–149; BP diastolic 70–89
[2022-12-21] MEDS: DIGOXIN INJ 0.5 MG/2 ML AMP IV SCH (00:53)
[2022-12-21 06:42] LABS: BASO # 0.1 10^3/uL (0.0-0.2); EOS # 0.1 10^3/uL (0.0-0.5); EOS % 2.5 % (0.0-3.0); HEMATOCRIT 46.4 % (42.0-52.0); HEMOGLOBIN 15.2 g/dl (13.5-17.5); LYMPH # 1.2 10^3/uL (1.5-5.0); LYMPH % 23.7 % (24.0-44.0); MEAN CORPUSCULAR HEMOGLOBIN 31.2 pg (27.0-33.0); MEAN CORPUSCULAR HGB CONC 32.8 g/dl (32.0-36.5); MEAN CORPUSCULAR VOLUME 95.3 fl (80.0-96.0); MONO # 0.6 10^3/uL (0.0-0.8); MONO % 11.4 % (2.0-8.0); NEUTROPHILS # 3.2 10^3/uL (1.5-8.5); PLATELET COUNT, AUTOMATED 232 10^3/uL (150-450); RED BLOOD COUNT 4.87 10^6/uL (4.30-6.10); WHITE BLOOD COUNT 5.2 10^3/uL (4.0-10.0)
[2022-12-21 07:00] LABS: BLOOD UREA NITROGEN 20 MG/DL (9-23); CALCIUM LEVEL 8.4 MG/DL (8.3-10.6); CARBON DIOXIDE LEVEL 27 MMOL/L (20-31); CHLORIDE LEVEL 106 MMOL/L (98-107); CREATININE FOR GFR 1.09 MG/DL (0.70-1.30); DIGOXIN LEVEL 1.7 NG/ML (0.8-2.0); GLOMERULAR FILTRATION RATE > 60.0 (>49); GLUCOSE, FASTING 89 MG/DL (74-106); POTASSIUM SERUM 4.5 MMOL/L (3.5-5.1); SODIUM LEVEL 139 MMOL/L (136-145)
[2022-12-21] MEDS: FLUoxetine 20MG CAP PO SCH (08:06)
[2022-12-21] MEDS: ATORVASTATIN 20 MG TAB PO SCH (08:06)
[2022-12-21] MEDS: APIXABAN 5 MG TAB (ELIQUIS) PO SCH ×2 (08:06→20:42)
[2022-12-21] MEDS: METOPROLOL TART 12.5 MG PER 1/2 TAB PO SCH (08:06)
[2022-12-21] MEDS: DOXYCYCLINE HYCLATE 100MG TABLET PO SCH ×2 (08:06→20:42)
[2022-12-21] MEDS: ASPIRIN 81MG ENTERIC TABLET PO SCH (08:07)
[2022-12-21] MEDS ORDERED: DIGOXIN 0.125 MG TAB PO SCH (09:00)
[2022-12-21] MEDS ORDERED: DIGOXIN INJ 0.5 MG/2 ML AMP IV SCH (09:00)
[2022-12-21] MEDS ORDERED: METOPROLOL TART 50 MG TAB PO ONE (11:30)
[2022-12-21] MEDS ORDERED: ACETAMINOPHEN TAB 650MG DOSE (2X325MG) PO PRN (12:40)
[2022-12-21] MEDS: PANTOPRAZOLE 40MG TAB (PROTONIX) PO SCH (20:42)
[2022-12-21] MEDS: METOPROLOL TART 50 MG TAB PO SCH (20:43)
[2022-12-22] VITALS (9 sets, daily range): BP systolic 84–122; BP diastolic 48–92
[2022-12-22 05:59] LABS: BASO % 0.7 % (0.0-1.0); EOS # 0.1 10^3/uL (0.0-0.5); HEMOGLOBIN 16.4 g/dl (13.5-17.5); LYMPH # 1.3 10^3/uL (1.5-5.0); MEAN CORPUSCULAR HEMOGLOBIN 32.1 pg (27.0-33.0); MEAN CORPUSCULAR HGB CONC 34.9 g/dl (32.0-36.5); MONO # 0.7 10^3/uL (0.0-0.8); MONO % 11.9 % (2.0-8.0); NEUTROPHILS # 3.4 10^3/uL (1.5-8.5); NEUTROPHILS % 62.2 % (36.0-66.0); PLATELET COUNT, AUTOMATED 238 10^3/uL (150-450); RED BLOOD COUNT 5.11 10^6/uL (4.30-6.10); WHITE BLOOD COUNT 5.5 10^3/uL (4.0-10.0)
[2022-12-22 06:20] LABS: BLOOD UREA NITROGEN 15 MG/DL (9-23); CALCIUM LEVEL 8.7 MG/DL (8.3-10.6); CARBON DIOXIDE LEVEL 24 MMOL/L (20-31); CHLORIDE LEVEL 108 MMOL/L (98-107); CREATININE FOR GFR 0.94 MG/DL (0.70-1.30); GLOMERULAR FILTRATION RATE > 60.0 (>49); GLUCOSE, FASTING 99 MG/DL (74-106); MAGNESIUM LEVEL 1.9 MG/DL (1.8-2.4); POTASSIUM SERUM 4.3 MMOL/L (3.5-5.1); SODIUM LEVEL 140 MMOL/L (136-145)
[2022-12-22] MEDS: FLUoxetine 20MG CAP PO SCH (08:08)
[2022-12-22] MEDS: ATORVASTATIN 20 MG TAB PO SCH (08:08)
[2022-12-22] MEDS: ASPIRIN 81MG ENTERIC TABLET PO SCH (08:08)
[2022-12-22] MEDS: DOXYCYCLINE HYCLATE 100MG TABLET PO SCH (08:08)
[2022-12-22] MEDS: APIXABAN 5 MG TAB (ELIQUIS) PO SCH (08:08)
[2022-12-22] MEDS ORDERED: DIGOXIN 0.125 MG TAB PO SCH (09:00)
[2022-12-22] MEDS ORDERED: LR 1,000 ML IV ONE (10:00)
[2022-12-22] MEDS: METOPROLOL TART 50 MG TAB PO SCH (11:04)
[2022-12-22] MEDS ORDERED: DIGO0.123 PO (13:15)
[2022-12-22] MEDS ORDERED: ELIQ5TAB PO (13:15)
[2022-12-22] MEDS ORDERED: LOPR1TAB6 PO (13:15)
== END 2022-12-22 14:56 | disposition home or self-care (01) | DRG 201 ==
LOC: M ED 10:26 → M ED INP 14:48 → ENRESERV 16:15 → M PCU 17:24
PROVIDERS: ADMIT Student in an Organized Health Care Education/Training Program; ATTEND Student in an Organized Health Care Education/Training Program
PROC: B246ZZZ Ultrasonography of Right and Left Heart (ICD-10-PCS; principal; 2022-12-21)
DX: I48.0 Paroxysmal atrial fibrillation (principal); K27.9 Peptic ulcer, site unspecified, unspecified as acute or chronic, without hemorrhage or perforation; K22.70 Barrett's esophagus without dysplasia; G25.0 Essential tremor; E78.5 Hyperlipidemia, unspecified; I10 Essential (primary) hypertension; I27.29 Other secondary pulmonary hypertension; M19.90 Unspecified osteoarthritis, unspecified site; N40.0 Benign prostatic hyperplasia without lower urinary tract symptoms; G47.33 Obstructive sleep apnea (adult) (pediatric); I08.1 Rheumatic disorders of both mitral and tricuspid valves; F41.9 Anxiety disorder, unspecified; L71.9 Rosacea, unspecified; F10.10 Alcohol abuse, uncomplicated; I67.1 Cerebral aneurysm, nonruptured; Z87.891 Personal history of nicotine dependence; Z85.46 Personal history of malignant neoplasm of prostate; Z92.3 Personal history of irradiation; Z79.82 Long term (current) use of aspirin; Z95.828 Presence of other vascular implants and grafts; Z79.899 Other long term (current) drug therapy; Z88.6 Allergy status to analgesic agent

== ENCOUNTER → 2023-06-09 | Outpatient (REF) | payer MEDICARE ==
[~2023-06-09] MED LIST changes: +ASPI81TA26 PO; +ATOR1TAB21 PO; +CLAR1TAB13 PO; +DIGO0.123 PO; +LOPR1TAB6 PO; +METR0.7534 TOP; +PANT40TA29 PO
[2023-06-09 15:05] LABS: ALBUMIN 3.6 G/DL (3.2-5.2); ALKALINE PHOSPHATASE 62 U/L (46-116); ALT/SGPT 61 U/L (7.0-40); AST/SGOT 40 U/L (<34); BILIRUBIN,TOTAL 0.7 MG/DL (0.3-1.2); BLOOD UREA NITROGEN 17 MG/DL (9-23); CALCIUM LEVEL 8.9 MG/DL (8.3-10.6); CARBON DIOXIDE LEVEL 27 MMOL/L (20-31); CHLORIDE LEVEL 107 MMOL/L (98-107); CHOLESTEROL LEVEL 173 MG/DL (<200); CHOLESTEROL RISK RATIO 3.23 (<5); GLOMERULAR FILTRATION RATE > 60.0 (>49); GLUCOSE, FASTING 99 MG/DL (74-106); HDL CHOLESTEROL 53.5 MG/DL (>40); LDL CHOLESTEROL 93.1 MG/DL (<100); NON-HDL-C 119.5 MG/DL; POTASSIUM SERUM 4.6 MMOL/L (3.5-5.1); SODIUM LEVEL 140 MMOL/L (136-145); TOTAL PROTEIN 6.2 G/DL (5.7-8.2); TRIGLYCERIDES LEVEL 132 MG/DL (<150)
== END ==
LOC: M SFHCADAM 08:39
PROVIDERS: ATTEND Physician Assistant
DX: I10 Essential (primary) hypertension (principal); E78.00 Pure hypercholesterolemia, unspecified; K22.70 Barrett's esophagus without dysplasia; I48.91 Unspecified atrial fibrillation; F41.9 Anxiety disorder, unspecified; F10.10 Alcohol abuse, uncomplicated

== ENCOUNTER → 2023-09-09 | Outpatient (REF) | payer MEDICARE ==
[~2023-09-09] MED LIST changes: +IRBE150T27 PO; -IRBE150T7 PO
== END ==
LOC: M SFHCADAM 08:54
PROVIDERS: ATTEND Urology
DX: C61 Malignant neoplasm of prostate (principal)

== ENCOUNTER → 2023-09-11 | Outpatient (CLI) | payer MEDICARE | LOC: M RAD 09:50 | PROVIDERS: ATTEND Physician Assistant | DX: F17.211 Nicotine dependence, cigarettes, in remission (principal) ==

== ENCOUNTER → 2023-09-26 | Outpatient (CLI) | payer MEDICARE | LOC: M PAIN 08:00 | PROVIDERS: ATTEND Nurse Practitioner Family | DX: M47.816 Spondylosis without myelopathy or radiculopathy, lumbar region (principal); M79.18 Myalgia, other site; G89.29 Other chronic pain; F41.9 Anxiety disorder, unspecified; I10 Essential (primary) hypertension; K22.70 Barrett's esophagus without dysplasia; G47.33 Obstructive sleep apnea (adult) (pediatric); E78.5 Hyperlipidemia, unspecified; I48.91 Unspecified atrial fibrillation; Z79.01 Long term (current) use of anticoagulants; Z79.899 Other long term (current) drug therapy; Z87.891 Personal history of nicotine dependence ==

== ENCOUNTER → 2023-10-09 | Outpatient (CLI) | payer MEDICARE | LOC: M RAD 08:06 | PROVIDERS: ATTEND Physician Assistant | DX: Z12.2 Encounter for screening for malignant neoplasm of respiratory organs (principal); F17.211 Nicotine dependence, cigarettes, in remission ==

== ENCOUNTER → 2023-12-08 | Outpatient (CLI) | payer MEDICARE | LOC: M RAD 15:46 | PROVIDERS: ATTEND Physician Assistant | DX: K40.90 Unilateral inguinal hernia, without obstruction or gangrene, not specified as recurrent (principal) ==

== ENCOUNTER → 2023-12-23 | Outpatient (REF) | payer MEDICARE ==
[2023-12-23 14:01] LABS: ALBUMIN 3.4 G/DL (3.2-5.2); ALKALINE PHOSPHATASE 90 U/L (46-116); ALT/SGPT 42 U/L (7.0-40); AST/SGOT 48 U/L (<34); BILIRUBIN,TOTAL 0.9 MG/DL (0.3-1.2); BLOOD UREA NITROGEN 19 MG/DL (9-23); CALCIUM LEVEL 8.7 MG/DL (8.3-10.6); CARBON DIOXIDE LEVEL 25 MMOL/L (20-31); CHLORIDE LEVEL 106 MMOL/L (98-107); CREATININE FOR GFR 0.96 MG/DL (0.70-1.30); GLOMERULAR FILTRATION RATE > 60.0 (>49); GLUCOSE, FASTING 123 MG/DL (74-106); POTASSIUM SERUM 3.9 MMOL/L (3.5-5.1); SODIUM LEVEL 140 MMOL/L (136-145); TOTAL PROTEIN 6.1 G/DL (5.7-8.2)
[2023-12-23 14:05] LABS: BASO # 0.1 10^3/uL (0.0-0.2); EOS % 0.7 % (0.0-3.0); HEMOGLOBIN 14.4 g/dl (13.5-17.5); LYMPH # 1.2 10^3/uL (1.5-5.0); LYMPH % 20.3 % (24.0-44.0); MEAN CORPUSCULAR HEMOGLOBIN 30.4 pg (27.0-33.0); MEAN CORPUSCULAR HGB CONC 32.7 g/dl (32.0-36.5); MEAN CORPUSCULAR VOLUME 92.8 fl (80.0-96.0); MONO # 0.9 10^3/uL (0.0-0.8); MONO % 14.5 % (2.0-8.0); NEUTROPHILS # 3.7 10^3/uL (1.5-8.5); NEUTROPHILS % 63.3 % (36.0-66.0); PLATELET COUNT, AUTOMATED 184 10^3/uL (150-450); RED BLOOD COUNT 4.74 10^6/uL (4.30-6.10); VITAMIN B12 LEVEL 298 PG/ML (211-911); WHITE BLOOD COUNT 5.9 10^3/uL (4.0-10.0)
== END ==
LOC: M LABDRWAD 13:12
PROVIDERS: ATTEND Physician Assistant
DX: I48.20 Chronic atrial fibrillation, unspecified (principal); F10.11 Alcohol abuse, in remission; F17.211 Nicotine dependence, cigarettes, in remission; D12.6 Benign neoplasm of colon, unspecified; K22.70 Barrett's esophagus without dysplasia; Z87.19 Personal history of other diseases of the digestive system; E78.2 Mixed hyperlipidemia; I10 Essential (primary) hypertension; K40.90 Unilateral inguinal hernia, without obstruction or gangrene, not specified as recurrent

== ENCOUNTER → 2023-12-23 | Outpatient (REF) | payer MEDICARE ==
[2023-12-23 14:01] LABS: BLOOD UREA NITROGEN 20 MG/DL (9-23); CREATININE FOR GFR 0.99 MG/DL (0.70-1.30); GLOMERULAR FILTRATION RATE > 60.0 (>49)
== END ==
LOC: M LABDRWAD 13:14
PROVIDERS: ATTEND Surgery
DX: K40.90 Unilateral inguinal hernia, without obstruction or gangrene, not specified as recurrent (principal)

== ENCOUNTER → 2024-01-06 | Outpatient (CLI) | payer MEDICARE ==
[~2024-01-06] MED LIST changes: +GASTROGRAFIN SOLUTION 30ML ONE; +ISOVUE-370 76% 100ML VIAL ONE; -METR0.7534 TOP; +METR60GE3 TOP
== END ==
LOC: M PLAIMG 07:50
PROVIDERS: ATTEND Surgery
DX: N28.1 Cyst of kidney, acquired (principal); K76.89 Other specified diseases of liver
CPT/HCPCS: 74178; Q9963; Q9967

== ENCOUNTER 2024-01-13 10:07 | Day surgery (SDC) | payer MEDICARE ==
[~2024-01-13] VITALS: Ht 177.8 cm; Wt 85.3 kg
[~2024-01-13 10:07] MED LIST changes: +FLUO-365 PO; -FLUO20CA22 PO; -GASTROGRAFIN SOLUTION 30ML ONE; -ISOVUE-370 76% 100ML VIAL ONE
[2024-01-13] MEDS ORDERED: propofoL 200 MG/20 ML VIAL As Ordered ONE (10:25)
[2024-01-13] MEDS ORDERED: MIDAZOLAM INJ 2MG/2ML VIAL As Ordered ONE (10:25)
[2024-01-13] MEDS ORDERED: fentaNYL 100 MCG/2 ML INJECTION As Ordered ONE (10:25)
[2024-01-13] MEDS ORDERED: LIDOCAINE 2% 100MG/5ML SDV (FOR ANES.) As Ordered ONE (10:25)
[2024-01-13] MEDS ORDERED: ONDANSETRON 4MG 2ML VIAL As Ordered ONE (10:26)
[2024-01-13] MEDS ORDERED: ROCURONIUM BROMIDE 50MG/5ML VIAL As Ordered ONE (10:26)
[2024-01-13] MEDS ORDERED: dexmedeTOMIDine (4MCG/ML)200MCG/50ML BTL (PRECEDEX) As Ordered ONE (10:30)
[2024-01-13] MEDS: ceFAZolin SOD 2 GM in IV 1 EA IV ONE (11:18)
[2024-01-13] MEDS ORDERED: ACETAMINOPHEN 1000MG 100ML IV BAG As Ordered ONE (11:50)
[2024-01-13] MEDS ORDERED: SUGAMMADEX SODIUM 500 MG/5 ML VIAL (BRIDION) As Ordered ONE (11:53)
[2024-01-13] MEDS ORDERED: HYDROMORPHONE HCL 0.5 MG/ 0.5 ML SYRINGE IV PRN (12:30)
[2024-01-13] MEDS ORDERED: ONDANSETRON 4MG 2ML VIAL IV PRN (12:30)
[2024-01-13] MEDS ORDERED: LR 1,000 ML IV SCH (12:30)
[2024-01-13] MEDS ORDERED: fentaNYL 100 MCG/2 ML INJECTION IV PRN (12:30)
[2024-01-13] MEDS ORDERED: traMADol 50 MG TAB PO PRN (12:45)
[2024-01-13] MEDS ORDERED: NS 1,000 ML IV SCH (12:45)
[2024-01-13] MEDS: oxyCODONE 5MG TAB PO PRN (13:04)
[2024-01-13 13:50] VITALS: BP 129/68; TEMP 97.9; O2SAT 94
== END 2024-01-13 13:59 | disposition home or self-care (01) ==
LOC: M SDC 10:07
PROVIDERS: ATTEND Surgery
DX: K40.90 Unilateral inguinal hernia, without obstruction or gangrene, not specified as recurrent (principal); I48.91 Unspecified atrial fibrillation; I10 Essential (primary) hypertension; E78.5 Hyperlipidemia, unspecified; K57.92 Diverticulitis of intestine, part unspecified, without perforation or abscess without bleeding; Z79.01 Long term (current) use of anticoagulants; F41.9 Anxiety disorder, unspecified; F32.A Depression, unspecified; Z92.3 Personal history of irradiation; Z85.46 Personal history of malignant neoplasm of prostate; Z79.899 Other long term (current) drug therapy; G47.33 Obstructive sleep apnea (adult) (pediatric); J30.2 Other seasonal allergic rhinitis; Z88.8 Allergy status to other drugs, medicaments and biological substances
CPT/HCPCS: 49650; C1781; J0131; J0665; J0690; J1100; J2250; J2405; J3010; S2900

== ENCOUNTER 2024-02-21 08:42 | Emergency (ER) | payer MEDICARE ==
[~2024-02-21] VITALS: Ht 177.8 cm; Wt 86.9 kg
[~2024-02-21 08:42] MED LIST changes: +ACAM0.05 PO; +AMIO200T37 PO; +B-1100TA2 PO; +FOLI1TAB11 PO; +[UNRECOGNIZED DRUG - CODE] PO
[2024-02-21 08:43] VITALS: TEMP 96
[2024-02-21] MEDS ORDERED: AMLO1TAB24 (08:53)
[2024-02-21] MEDS ORDERED: OMEP-173 PO (08:53)
[2024-02-21 08:57] VITALS: BP 130/92
[2024-02-21 09:33] LABS: HEMATOCRIT 44.9 % (42.0-52.0); HEMOGLOBIN 15.4 g/dl (13.5-17.5); MEAN CORPUSCULAR HGB CONC 34.3 g/dl (32.0-36.5); MEAN CORPUSCULAR VOLUME 93.2 fl (80.0-96.0); PLATELET COUNT, AUTOMATED 200 10^3/uL (150-450); RED BLOOD COUNT 4.82 10^6/uL (4.30-6.10); WHITE BLOOD COUNT 4.4 10^3/uL (4.0-10.0)
[2024-02-21 09:35] LABS: ETHYL ALCOHOL (ETHANOL) 0.148 % (0.000-0.010)
[2024-02-21 09:37] LABS: BLOOD UREA NITROGEN 16 MG/DL (9-23); CALCIUM LEVEL 8.9 MG/DL (8.3-10.6); CARBON DIOXIDE LEVEL 21 MMOL/L (20-31); CHLORIDE LEVEL 105 MMOL/L (98-107); CREATININE FOR GFR 0.85 MG/DL (0.70-1.30); GLOMERULAR FILTRATION RATE > 60.0 (>49); GLUCOSE, FASTING 94 MG/DL (74-106); POTASSIUM SERUM 4.1 MMOL/L (3.5-5.1); SODIUM LEVEL 139 MMOL/L (136-145)
[2024-02-21 09:40] LABS: THYROID STIMULATING HORMONE 1.548 uIU/ML (0.55-4.78)
[2024-02-21] MEDS: FLEET ENEMA PR ONE (10:09)
[2024-02-21 10:12] VITALS: O2SAT 96
[2024-02-21] MEDS ORDERED: COLA100C5 PO (10:41)
== END 2024-02-21 11:01 | disposition home or self-care (01) ==
LOC: M ED 08:42
DX: F10.129 Alcohol abuse with intoxication, unspecified (principal); F41.9 Anxiety disorder, unspecified; K59.00 Constipation, unspecified; I45.10 Unspecified right bundle-branch block; I10 Essential (primary) hypertension; E78.5 Hyperlipidemia, unspecified; Z86.79 Personal history of other diseases of the circulatory system; Z88.6 Allergy status to analgesic agent; Z91.048 Other nonmedicinal substance allergy status; Z79.01 Long term (current) use of anticoagulants; Z79.02 Long term (current) use of antithrombotics/antiplatelets; Z79.899 Other long term (current) drug therapy

== ENCOUNTER → 2024-03-10 | Outpatient (CLI) | payer MEDICARE ==
[~2024-03-10] MED LIST changes: +AMLO1TAB24; +COLA100C5 PO; +OMEP-173 PO
== END ==
LOC: M OUTALCOH 08:30
PROVIDERS: ATTEND Psychiatry & Neurology Psychiatry
DX: F10.20 Alcohol dependence, uncomplicated (principal)

== ENCOUNTER → 2024-03-18 | Outpatient (CLI) | payer MEDICARE | LOC: M SOG 08:00 | PROVIDERS: ATTEND Orthopaedic Surgery | DX: M54.50 Low back pain, unspecified (principal) ==

== ENCOUNTER → 2024-03-24 | Outpatient (RCR) | payer MEDICARE | LOC: M OUTALCOH 03-22 07:44 | PROVIDERS: ATTEND Psychiatry & Neurology Psychiatry | DX: F10.20 Alcohol dependence, uncomplicated (principal) ==

== ENCOUNTER → 2024-04-08 | Outpatient (REF) | payer MEDICARE ==
[2024-04-08 13:26] LABS: BASO # 0.1 10^3/uL (0.0-0.2); BASO % 1.1 % (0.0-1.0); EOS # 0.1 10^3/uL (0.0-0.5); EOS % 2.3 % (0.0-3.0); HEMATOCRIT 42.7 % (42.0-52.0); HEMOGLOBIN 14.2 g/dl (13.5-17.5); LYMPH # 1.4 10^3/uL (1.5-5.0); LYMPH % 29.1 % (24.0-44.0); MEAN CORPUSCULAR HEMOGLOBIN 32.3 pg (27.0-33.0); MEAN CORPUSCULAR HGB CONC 33.3 g/dl (32.0-36.5); MEAN CORPUSCULAR VOLUME 97.3 fl (80.0-96.0); MONO # 0.7 10^3/uL (0.0-0.8); MONO % 14.5 % (2.0-8.0); NEUTROPHILS # 2.5 10^3/uL (1.5-8.5); NEUTROPHILS % 52.8 % (36.0-66.0); PLATELET COUNT, AUTOMATED 197 10^3/uL (150-450); RED BLOOD COUNT 4.39 10^6/uL (4.30-6.10); WHITE BLOOD COUNT 4.7 10^3/uL (4.0-10.0)
[2024-04-08 13:44] LABS: HEMOGLOBIN A1c 5.6 % (4.0-6.0)
[2024-04-08 14:37] LABS: ALBUMIN 4.1 G/DL (3.2-5.2); ALKALINE PHOSPHATASE 70 U/L (46-116); ALT/SGPT 29 U/L (7.0-40); AST/SGOT 22 U/L (<34); BILIRUBIN,TOTAL 0.7 MG/DL (0.3-1.2); BLOOD UREA NITROGEN 16 MG/DL (9-23); CALCIUM LEVEL 9.4 MG/DL (8.3-10.6); CARBON DIOXIDE LEVEL 26 MMOL/L (20-31); CHLORIDE LEVEL 106 MMOL/L (98-107); CREATININE FOR GFR 0.97 MG/DL (0.70-1.30); GLOMERULAR FILTRATION RATE > 60.0 (>42); GLUCOSE, FASTING 91 MG/DL (74-106); MAGNESIUM LEVEL 1.8 MG/DL (1.8-2.4); POTASSIUM SERUM 4.2 MMOL/L (3.5-5.1); SODIUM LEVEL 139 MMOL/L (136-145); TOTAL PROTEIN 6.6 G/DL (5.7-8.2)
[2024-04-08 14:39] LABS: FOLATE > 24.0 NG/ML (>5.4); VITAMIN B12 LEVEL 658 PG/ML (211-911)
== END ==
LOC: M SFHCADAM 08:09
PROVIDERS: ATTEND Physician Assistant
DX: E78.2 Mixed hyperlipidemia (principal); E83.42 Hypomagnesemia; I10 Essential (primary) hypertension; K22.70 Barrett's esophagus without dysplasia; I48.91 Unspecified atrial fibrillation; F10.10 Alcohol abuse, uncomplicated

== ENCOUNTER → 2024-04-13 | Outpatient (REF) | payer MEDICARE | LOC: M SFHCADAM 11:21 | PROVIDERS: ATTEND Urology | DX: C61 Malignant neoplasm of prostate (principal) ==

== ENCOUNTER 2024-04-23 08:40 | Outpatient (RCR) | payer MEDICARE ==
[~2024-04-23 08:40] MED LIST changes: +GABA-1172 PO; -GABA-282 PO
== END 2024-04-24 ==
LOC: M OUTALCOH 08:40
PROVIDERS: ATTEND Psychiatry & Neurology Psychiatry
DX: F10.20 Alcohol dependence, uncomplicated (principal)

== ENCOUNTER 2024-05-19 08:40 | Outpatient (RCR) | payer MEDICARE ==
[~2024-05-19 08:40] MED LIST changes: -GABA-1172 PO; +GABA-282 PO
== END 2024-05-24 ==
LOC: M OUTALCOH 08:40
PROVIDERS: ATTEND Psychiatry & Neurology Psychiatry
DX: F10.20 Alcohol dependence, uncomplicated (principal)

== ENCOUNTER → 2024-06-02 | Outpatient (REF) | payer MEDICARE ==
[~2024-06-02] MED LIST changes: +GABA-1172 PO; -GABA-282 PO
[2024-06-02 13:29] LABS: ALBUMIN 3.9 G/DL (3.2-5.2); ALKALINE PHOSPHATASE 76 U/L (46-116); ALT/SGPT 36 U/L (7.0-40); AST/SGOT 26 U/L (<34); BILIRUBIN,TOTAL 0.7 MG/DL (0.3-1.2); BLOOD UREA NITROGEN 18 MG/DL (9-23); CALCIUM LEVEL 9.9 MG/DL (8.3-10.6); CARBON DIOXIDE LEVEL 28 MMOL/L (20-31); CHLORIDE LEVEL 105 MMOL/L (98-107); CREATININE FOR GFR 1.04 MG/DL (0.70-1.30); GLOMERULAR FILTRATION RATE > 60.0 (>42); GLUCOSE, FASTING 96 MG/DL (74-106); POTASSIUM SERUM 4.5 MMOL/L (3.5-5.1); SODIUM LEVEL 138 MMOL/L (136-145); TOTAL PROTEIN 6.7 G/DL (5.7-8.2)
== END ==
LOC: M SFHCADAM 10:08
PROVIDERS: ATTEND Physician Assistant
DX: R19.7 Diarrhea, unspecified (principal); F10.11 Alcohol abuse, in remission

== ENCOUNTER → 2024-06-03 | Outpatient (REF) | payer MEDICARE | LOC: M SFHCADAM 13:03 | PROVIDERS: ATTEND Physician Assistant | DX: R19.7 Diarrhea, unspecified (principal) ==

== ENCOUNTER → 2024-06-24 | Outpatient (RCR) | payer MEDICARE | LOC: M OUTALCOH 05-26 07:58 | PROVIDERS: ATTEND Psychiatry & Neurology Psychiatry | DX: F10.20 Alcohol dependence, uncomplicated (principal) ==

== ENCOUNTER 2024-07-19 07:46 | Outpatient (RCR) | payer MEDICARE ==
[~2024-07-19 07:46] MED LIST changes: +META-10 PO; -META1TAB22 PO
== END 2024-07-24 ==
LOC: M OUTALCOH 07:46
PROVIDERS: ATTEND Psychiatry & Neurology Psychiatry
DX: F10.20 Alcohol dependence, uncomplicated (principal)
CPT/HCPCS: 90832; 90834; 90853; G0463

== ENCOUNTER → 2024-08-04 | Day surgery (SDC) | payer MEDICARE ==
[~2024-08-04] VITALS: Ht 177.8 cm; Wt 86.2 kg
[~2024-08-04] MED LIST changes: +AMIT25TA19 PO; -AMLO1TAB24; +AMLO1TAB24 PO; +LIDOCAINE 2% 100MG/5ML SDV (FOR ANES.) As Ordered ONE; +propofoL 200 MG/20 ML VIAL As Ordered ONE
== END | disposition home or self-care (01) ==
LOC: M OPP 11:49
PROVIDERS: ATTEND Internal Medicine Gastroenterology
DX: Z53.8 Procedure and treatment not carried out for other reasons (principal)

== ENCOUNTER 2024-08-17 07:55 | Outpatient (RCR) | payer MEDICARE ==
[~2024-08-17 07:55] MED LIST changes: -LIDOCAINE 2% 100MG/5ML SDV (FOR ANES.) As Ordered ONE; -propofoL 200 MG/20 ML VIAL As Ordered ONE
== END 2024-08-24 ==
LOC: M OUTALCOH 07:55
PROVIDERS: ATTEND Psychiatry & Neurology Psychiatry
DX: F10.20 Alcohol dependence, uncomplicated (principal)

== ENCOUNTER → 2024-08-31 | Outpatient (REF) | payer MEDICARE | LOC: M SFHCADAM 08:48 | PROVIDERS: ATTEND Urology | DX: C61 Malignant neoplasm of prostate (principal) ==

== ENCOUNTER → 2024-11-22 | Outpatient (CLI) | payer MEDICARE | LOC: M OUTALCOH 08:28 | PROVIDERS: ATTEND Psychiatry & Neurology Psychiatry | DX: F10.20 Alcohol dependence, uncomplicated (principal) | CPT/HCPCS: 90791; G0463 ==

== ENCOUNTER → 2025-01-05 | Outpatient (REF) | payer MEDICARE ==
[~2025-01-05] MED LIST changes: -FLOM0.4C39 PO; +TAMS-18 PO
[2025-01-05 13:47] LABS: MEAN CORPUSCULAR HEMOGLOBIN 28.7 pg (27.0-33.0); MEAN CORPUSCULAR HGB CONC 31.8 g/dl (32.0-36.5); MEAN CORPUSCULAR VOLUME 90.2 fl (80.0-96.0); PLATELET COUNT, AUTOMATED 311 10^3/uL (150-450); RED BLOOD COUNT 4.88 10^6/uL (4.30-6.10); WHITE BLOOD COUNT 5.4 10^3/uL (4.0-10.0)
[2025-01-05 14:06] LABS: BILIRUBIN,TOTAL 0.7 MG/DL (0.3-1.2); CALCIUM LEVEL 9.3 MG/DL (8.3-10.6); CREATININE FOR GFR 1.06 MG/DL (0.70-1.30); GLOMERULAR FILTRATION RATE 75.5 (>42); POTASSIUM SERUM 4.4 MMOL/L (3.5-5.1); TOTAL PROTEIN 6.7 G/DL (5.7-8.2)
== END ==
LOC: M SFHCADAM 08:52
PROVIDERS: ATTEND Physician Assistant
DX: F10.11 Alcohol abuse, in remission (principal); Z79.899 Other long term (current) drug therapy

== ENCOUNTER 2025-03-18 08:54 | Outpatient (RCR) | payer MEDICARE ==
[~2025-03-18 08:54] MED LIST changes: +MULT-204 PO; +NALT50TA4 PO; +SLOW1TAB3 PO; -SLOWTAB2 PO
== END 2025-03-24 ==
LOC: M OUTALCOH 08:54
PROVIDERS: ATTEND Psychiatry & Neurology Psychiatry
DX: F10.20 Alcohol dependence, uncomplicated (principal)
CPT/HCPCS: 90832; 90853; G0463

== ENCOUNTER → 2025-04-06 | Outpatient (REF) | payer MEDICARE ==
[2025-04-06 14:06] LABS: PLATELET COUNT, AUTOMATED 267 10^3/uL (150-450)
[2025-04-06 14:11] LABS: ALT/SGPT 32.0 U/L (7.0-40); AST/SGOT 29.0 U/L (<34); CALCIUM LEVEL 9.4 MG/DL (8.3-10.6); CARBON DIOXIDE LEVEL 26.0 MMOL/L (20-31); CHLORIDE LEVEL 106.0 MMOL/L (98-107); CHOLESTEROL LEVEL 180.0 MG/DL (<200); CHOLESTEROL RISK RATIO 3.68 (<5); CREATININE FOR GFR 1.11 MG/DL (0.70-1.30); GLOMERULAR FILTRATION RATE 71.4 (>42); LDL CHOLESTEROL 75.0 MG/DL (<100); NON-HDL-C 131.2 MG/DL; POTASSIUM SERUM 4.6 MMOL/L (3.5-5.1); SODIUM LEVEL 142.0 MMOL/L (136-145); TRIGLYCERIDES LEVEL 281.0 MG/DL (<150)
[2025-04-06 14:24] LABS: ESTIMATED AVERAGE GLUCOSE 123.0 MG/DL (60-110)
== END ==
LOC: M SFHCADAM 08:46
PROVIDERS: ATTEND Physician Assistant
DX: F10.10 Alcohol abuse, uncomplicated (principal); F17.211 Nicotine dependence, cigarettes, in remission; I48.20 Chronic atrial fibrillation, unspecified; D36.9 Benign neoplasm, unspecified site; K22.70 Barrett's esophagus without dysplasia; E78.00 Pure hypercholesterolemia, unspecified; I10 Essential (primary) hypertension; F10.11 Alcohol abuse, in remission; Z13.1 Encounter for screening for diabetes mellitus

== ENCOUNTER → 2025-07-14 | Outpatient (REF) | payer MEDICARE ==
[~2025-07-14] MED LIST changes: -IBUP-1022 PO; +IBUP600T42 PO
[2025-07-14 14:03] LABS: ALT/SGPT 45 U/L (7.0-40); AST/SGOT 35 U/L (<34); CALCIUM LEVEL 9.8 MG/DL (8.3-10.6); CARBON DIOXIDE LEVEL 30 MMOL/L (20-31); CHLORIDE LEVEL 106 MMOL/L (98-107); CHOLESTEROL LEVEL 171 MG/DL (<200); CHOLESTEROL RISK RATIO 4.09 (<5); CREATININE FOR GFR 1.07 MG/DL (0.70-1.30); GLOMERULAR FILTRATION RATE 74.2 (>42); LDL CHOLESTEROL 90.6 MG/DL (<100); NON-HDL-C 129.2 MG/DL; POTASSIUM SERUM 5.0 MMOL/L (3.5-5.1); SODIUM LEVEL 141 MMOL/L (136-145); TRIGLYCERIDES LEVEL 193 MG/DL (<150)
[2025-07-14 14:04] LABS: FREE T4 1.24 NG/DL (0.89-1.76)
[2025-07-14 14:05] LABS: VITAMIN B12 LEVEL 948 PG/ML (211-911)
== END ==
LOC: M SFHCADAM 08:56
PROVIDERS: ATTEND Physician Assistant
DX: G57.92 Unspecified mononeuropathy of left lower limb (principal); I25.10 Atherosclerotic heart disease of native coronary artery without angina pectoris; I10 Essential (primary) hypertension